=== PATIENT | male | born 1940 | race Hispanic/Latino ===

== ENCOUNTER 2017-01-21 06:14 | Day surgery (SDC) | payer MEDICARE, BC ==
[2017-01-18 12:03] VITALS: BMI 24.3
--- NOTE | 2017-01-21 04:13 | HP ---
REASON FOR ADMISSION: Left heart cath, abnormal stress test, history of coronary artery disease. BRIEF CLINICAL HISTORY: This is a 76-year-old male with a past medical history significant for coronary artery disease, status post multiple stents in LAD, circumflex, and RCA; history of Parkinson disease; history of hypertension; and hyperlipidemia, who was recently discharged from the hospital, who had plain balloon angioplasty when the patient admitted with wide complex tachycardia, status post cardioverter defibrillator and then plain balloon angioplasty of LAD done on 09/23/2015. Recent stress test was abnormal dated 12/24/2016, so the patient is scheduled for elective cardiac catheterization, possible angioplasty. PAST MEDICAL HISTORY: Significant for history of GI bleed; history of recently diagnosed sleep apnea; history of coronary artery disease, status post multiple stents; history of stent in LAD, history of stent in the RCA, history of stent in LAD, and most recently, the patient presented with wide-complex tachycardia, VT. Cardiac catheterization and plain balloon angioplasty of distal LAD was done. At that time, cardiac evaluation revealed decreased LV function, ejection fraction 45% to 50%, EDP was in the range of 15, successful POBA of distal LAD was done. Medical treatment recommended. Recent cardiac workup as follows: The patient had a catheterization in 2008, at that time, it showed patent stent in circumflex, patent stent in RCA, mild disease in LAD, 20% stenosis in the left main. Ejection fraction 45% to 50%. EDP within the range of 16, dated 06/10/2009. Most recent MUGA scan shows ejection fraction of 61% on 02/17/2013. The patient had a stress test done dated 12/24/2016 that shows abnormal stress myocardial perfusion study, reversible apical inferior, inferolateral defect, suspicious for ischemia. Ejection fraction 39%. When compared to the previous stress test, there is a significant reversible ischemia noted in the current study which is new as compared to 03/18/2016. The patient had a bilateral carotid duplex done dated 10/12/2016 that shows 45% to 59% bilateral carotid artery stenosis noted. The patient had echocardiography done on 10/12/2016 that showed the ejection fraction of 45%. Mild aortic regurgitation, [id number] mitral regurgitation, mild tricuspid regurgitation, trace pulmonary insufficiency. SOCIAL HISTORY: Denies any history of alcohol abuse. CURRENT MEDICATIONS: The patient is taking vitamin B complex, CoQ10, Neupro, omega-3, metoprolol 25 b.i.d., folic acid, clopidogrel, carbidopa/levodopa, aspirin, and amiodarone 200 mg daily. REVIEW OF SYSTEMS: As per HPI. PHYSICAL EXAMINATION: VITAL SIGNS: As follows: Height of the patient is 5 feet 10 inches,weight of the patient 170 pounds, body mass index 24.4 kg/m2, heart rate 60, blood pressure 130/80. HEENT: PERRLA, extraocular muscles intact. NECK: Supple. No carotid bruit. No thyromegaly. CHEST: Clear to auscultation. HEART: S1 and S2, regular. ABDOMEN: Soft. EXTREMITIES: Clubbing and cyanosis negative. IMPRESSION: A 76-year-old male with multiple stents to left anterior descending, right coronary artery, and circumplex. Most recently, the patient had wide-complex tachycardia and plain balloon angioplasty was done on 09/23/2015. Recent stress test dated 12/24/2016, apical inferior ischemia. The patient is scheduled for elective cardiac catheterization, possible angioplasty. We will load with Plavix and aspirin, do the basic blood workup. If everything is normal, then we will do a cardiac catheterization. Further recommendation after the cardiac catheterization. We will follow with you. Thank you Dr. Severino for providing us opportunity in taking care of the patient, John Padilla. Marva Alanis MD
[2017-01-21] MEDS ORDERED: Lidocaine 2% Inj (20ml) ONE (06:30)
[2017-01-21] MEDS ORDERED: Iohexol 350mgl/ml 50 ML ONE (06:31)
[2017-01-21] MEDS ORDERED: Iodixanol 320 MG/ML 100 ML BOTTLE IV ONE (06:31)
[2017-01-21] MEDS ORDERED: Iodixanol 320 MG/ML 200 ML BOTTLE IV ONE (06:31)
[2017-01-21] MEDS ORDERED: Nitroglycerin 50mg in D5W 0 MG/0 ML BOTTLE IV ONE (06:31)
[2017-01-21] MEDS ORDERED: Phenylephrine 10 mg/ml Inj ONE (06:31)
[2017-01-21] MEDS ORDERED: Midazolam 2 MG/2 ML VIAL ONE (06:50)
[2017-01-21 07:07] LABS: BLOOD UREA NITROGEN 17 mg/dL (7-21); CALCIUM 9.5 mg/dL (8.4-10.5); GFR AFRICAN-AMERICAN > 60; GFR NON-AFRICAN AMERICAN 59; HDL CHOLESTEROL 43 mg/dL (29-60)
[2017-01-21 07:08] LABS: INR 1.03 (0.93-1.08); PARTIAL THROMBOPLASTIN TIME 25.8 Seconds (23.7-30.8); PROTHROMBIN TIME 11.1 Seconds (9.9-11.8)
[2017-01-21 07:09] LABS: BASO # 0.02 K/mm3 (0.0-2.0); BASO % 0.4 % (0.0-3.0); EOS # 0.2 (0.0-0.7); EOS % 3.9 % (1.5-5.0); GRAN # 3.82 (1.4-6.5); LYMPH # 1.1 (1.2-3.4); MEAN CELL VOLUME 98.6 fL (80.0-105.0); MEAN CORPUSCULAR HEMOGLOBIN 33.4 pg (25.0-35.0); MEAN CORPUSCULAR HGB CONC 33.9 g/dl (31.0-37.0); MEAN PLATELET VOLUME 9.9 fl (7.0-11.0); MONO # 0.4 (0.1-0.6); MONO % 7.7 % (1.0-6.0); PLATELET COUNT 190 10^3/uL (120.0-450.0); RBC 4.19 10^6/uL (3.5-6.1); RED CELL DISTRIBUTION WIDTH 13.6 % (11.5-14.5); WHITE BLOOD COUNT 5.6 10^3/ul (4.5-11.0)
[2017-01-21 07:18] LABS: LDL CHOLESTEROL 60 mg/dL (0-129)
[2017-01-21 07:34] VITALS: RESP 18
[2017-01-21] MEDS ORDERED: Sodium Chloride 0.9% 1,000 ML IV SCH (08:45)
[2017-01-21 08:52] VITALS: TEMP 97.5
[2017-01-21 12:01] VITALS: BP 155/86; PULSE 65; O2SAT 97
--- NOTE | 2017-01-21 12:50 | CARD ---
APPROVED REPORT Procedure(s) performed: Left Heart Catheterization HISTORY The patient is a 76 year-old male with a history of : previous AZ (> 7 days), most recent EF: 39%. (EF Method: RADIONUCLIDE), previous diagnostic cath, tobacco history() : The patient is a former smoker , previous PCI (The PCI date was 09/23/2015), hypertension , dyslipidemia , cerebrovascular disease . INDICATION The indication(s) include : positive stress test. CASE TECHNIQUE The patient was brought electively to the Cardiac Catheterization Laboratory in a fasting state and was prepped and draped in a sterile manner. The right femoral groin was infiltrated with 2% Lidocaine subcutaneous anesthesia. A 6 Fr x 11 cm Rosa sheath was inserted into the right femoral artery without difficulty. Coronary angiography was performed using coronary diagnostic catheters. The left coronary system was accessed and visualized with a Diagnostic ,6 Fr JL 4 catheter. The right coronary system was accessed and visualized with a Diagnostic ,6 Fr JR 4 catheter. The left ventricle was accessed and visualized with a 6 Fr Pigtail catheter. Left ventricular/Aortic Valve gradient assessed on pullback. Left ventriculogram was performed in TANNER projection. Closure device was deployed with a 6 Fr / 7 Fr MynxGrip without any complications. The patient tolerated the procedure well and there were no complications associated with the procedure. Vessel Analysis The patient's coronary anatomy is right dominant. The left main coronary artery is a medium size vessel with diffuse calcification noted throughout this vessel and without significant stenosis. There is a 30-40% stenosis in the mid segment. The left main bifurcates to the left anterior descending and circumflex. The left anterior descending artery is a medium size vessel with diffuse calcification noted throughout this vessel and without significant stenosis. patent stent in proximal LAD There is a 60% stenosis in the distal segment. The first diagonal branch is a small size vessel with diffuse calcification noted throughout this vessel and without significant stenosis. The circumflex artery is a medium size vessel with diffuse calcification noted throughout this vessel and without significant stenosis. Patent stent in Proximal Cx There is a 30-40% stenosis in the ostial segment. The first obtuse marginal branch is a medium size vessel with diffuse calcification noted throughout this vessel and without significant stenosis. The right coronary artery is a medium size vessel with diffuse calcification noted throughout this vessel and without significant stenosis. Patent stents in proximal and Mid RCA There is a 60% stenosis in the mid segment. in Between Stents The right posterior descending artery is a medium size vessel with diffuse calcification noted throughout this vessel and without significant stenosis. There is a 40-50% stenosis in the proximal segment. Left Ventricle The left ventricle is mildly enlarged in size with mild to moderately decreased contractility. Ischemic cardiomyopathy. The left ventricular ejection fraction is estimated to be 35-40%. The left ventricular end diastolic pressure is 15-16 mmHg. There was no gradient across the aortic valve upon pullback. Postero Lateral HK Conclusion Moderately diseased in LAD, Cx , left main, and RCA. Patent all Previous stents. Mild to moderately decraedsed LV FX. EF-35-40%, with posterior basal Hypokinesis. EDP-15-16 mmof Hg. Recommendations Aggressive Medical TherapyCardiac Risk Reduction Program Monitor LV Fx in 3-6 months, and If remains below 35% consider AICD. Interim Consider Dig, CHRIS, Coreg, Diuretic and Spironolactone +/- Enteresto. CC; Drs. Severino / Abdon.
== END 2017-01-21 14:10 | disposition home or self-care (01) ==
LOC: CATH 06:14
PROVIDERS: ATTEND Internal Medicine Cardiovascular Disease
DX: I25.10 Atherosclerotic heart disease of native coronary artery without angina pectoris (principal); I25.5 Ischemic cardiomyopathy; I10 Essential (primary) hypertension; E78.5 Hyperlipidemia, unspecified; G20 Parkinson's disease; I65.23 Occlusion and stenosis of bilateral carotid arteries; I08.3 Combined rheumatic disorders of mitral, aortic and tricuspid valves; Z87.891 Personal history of nicotine dependence; Z95.5 Presence of coronary angioplasty implant and graft
CPT/HCPCS: 36415; 80048; 80061; 85025; 85610; 85730; 86850; 86900; 93458; 99152; 99153; C1760; C1769; C2629; J1644; J2250; J3010; J7030; J7040

== ENCOUNTER 2017-05-04 17:40 | Inpatient (IN) | payer MEDICARE, BC ==
[2017-05-04 17:40] VITALS: BMI 25.2
[2017-05-04 18:30] LABS: BASO # 0.03 K/mm3 (0.0-2.0); BASO % 0.4 % (0.0-3.0); EOS # 0.1 (0.0-0.7); EOS % 1.3 % (1.5-5.0); GRAN # 4.89 (1.4-6.5); GRAN % 72.6 % (50.0-68.0); HEMATOCRIT 32.4 % (42.0-52.0); LYMPH # 1.1 (1.2-3.4); LYMPH % 15.6 % (22.0-35.0); MEAN CELL VOLUME 101.3 fl (80.0-105.0); MEAN CORPUSCULAR HEMOGLOBIN 34.1 pg (25.0-35.0); MEAN CORPUSCULAR HGB CONC 33.6 g/dl (31.0-37.0); MEAN PLATELET VOLUME 9.7 fl (7.0-11.0); MONO # 0.7 (0.1-0.6); MONO % 10.1 % (1.0-6.0); RED CELL DISTRIBUTION WIDTH 12.9 % (11.5-14.5); WHITE BLOOD COUNT 6.7 10^3/ul (4.5-11.0)
[2017-05-04 18:39] LABS: INR 1.1 (0.93-1.08); PARTIAL THROMBOPLASTIN TIME 28.3 Seconds (25.1-36.5)
[2017-05-04 18:40] LABS: ALB/GLOB RATIO 1.2 (1.1-1.8); ALKALINE PHOSPHATASE 58 U/L (38-126); ALT/SGPT 45 U/L (7-56); AST/SGOT 27 U/L (17-59); BILIRUBIN,TOTAL 0.8 mg/dL (0.2-1.3); BLOOD UREA NITROGEN 18 mg/dL (7-21); CALCIUM 9.1 mg/dL (8.4-10.5); CARBON DIOXIDE 29 mmol/L (21-33); CHLORIDE 104 mmol/L (98-107); GFR AFRICAN-AMERICAN > 60; GLUCOSE,RANDOM 94 mg/dL (70-110); SODIUM 140 mmol/L (132-148)
[2017-05-04 18:51] LABS: TROPONIN I < 0.01 ng/mL
--- NOTE | 2017-05-04 19:02 | ED PDOC ---
Arrival/HPI - General Time Seen by Provider: 05/04/17 17:43 Historian: Patient - History of Present Illness Narrative History of Present Illness (Text): 05/04/17 18:58 76yr old male with parkinsons, CAD, htn presents today with BIBA for Depression and SI. pt states he had a fall 6 days ago and was seen at [facility] and had head ct which was negative. pt states he was told he had nasal bone fracture. pt states he went to see PMD and plastic surgeon for nasal injury. pt states his children say that he is unable to take care of himself at home. Patient states he hasn't eaten for 3 days because it is very difficult for him to get food. Patient states ever since his fall he has been finding it difficult to get up and walk. Patient states he has a fear of falling. Patient denies chest pain or shortness of breath. He is complaining of pain to the left lateral ribs. Patient states he has had the pain since the fall and was told he had bruised his ribs. Patient denies abdominal pain. No nausea or vomiting. Patient states he is very hungry currently. He denies urinary symptoms. He denies weakness. Patient states he is depressed. Patient states he is at home today and the EMS just came into his house and told him he had to go to the hospital. Patient states he did send his daughter had text message and told her that he was depressed and that he might just be better off if he wasn't alive. Past Medical History - Provider Review Nursing Documentation Reviewed: Yes - Travel History Have you recently traveled outside [place] w/in the past 3 mons?: No - Infectious Disease Hx of Infectious Diseases: None - Tetanus Immunization Tetanus Immunization: Unknown - Cardiac Hx Pacemaker: No - Pulmonary Hx Pneumonia: Yes - Neurological Hx Paralysis: No Hx Parkinson's Disease: Yes - HEENT Other/Comment: WEARS RX GLASSES - Renal Hx Kidney Stones: Yes (LITHOTRYPSY/PASSED IT) - Endocrine/Metabolic Hx Endocrine Disorders: No - Hematological/Oncological Hx Blood Transfusions: Yes (MANY YRS AGO) Hx Blood Transfusion Reaction: No - Integumentary Hx Dermatological Disorder: No - Musculoskeletal/Rheumatological Hx Musculoskeletal Disorders: No - Gastrointestinal Hx Gastrointestinal Disorders: Yes (GI bleed) - Genitourinary/Gynecological Hx Prostate Problems: Yes (BPH) - Psychiatric Hx Emotional Abuse: No Hx Physical Abuse: No Hx Substance Use: No - Surgical History Hx Cardiac Catheterization: Yes Hx Coronary Stent: Yes (x5) Other/Comment: excision benign forehead lesiion - Anesthesia Hx Anesthesia Reactions: No Hx Malignant Hyperthermia: No - Suicidal Assessment Feels Threatened In Home Enviroment: No Family/Social History - Physician Review Nursing Documentation Reviewed: Yes Family/Social History: Unknown Family HX Smoking Status: Former Smoker Hx Alcohol Use: Yes (ON OCCASION) Hx Substance Use: No Allergies/Home Meds Allergies/Adverse Reactions: Allergies No Known Allergies Allergy (Verified 05/05/17 00:53) Home Medications: Home Meds Medication Instructions Recorded Confirmed Clopidogrel [Plavix] 75 mg PO DAILY 09/16/12 05/05/17 Aspirin [Ecotrin] 325 mg PO DAILY 09/18/15 05/05/17 Carbidopa/Levodopa/Entacapone 1 tab-cap PO BID 09/18/15 05/05/17 [Stalevo 100] Metoprolol Tartrate [Lopressor] 25 mg PO BID 09/18/15 05/05/17 Pantoprazole Sodium [Protonix] 40 mg PO DAILY 09/18/15 05/05/17 Vitamin B Complex 1 tab PO DAILY 09/18/15 05/05/17 Alpha Lipoic Acid 600 mg PO DAILY 05/04/17 05/05/17 Ezetimibe/Simvastatin [Vytorin 10 mg PO DAILY 05/04/17 05/05/17 10-40 mg Tablet] Ubiquinol 300 mg PO DAILY 05/04/17 05/05/17 Vitamin B Complex [Super B-50 1 each PO DAILY 05/04/17 05/05/17 Complex] Review of Systems - Review of Systems Constitutional: absent: Fatigue, Fevers Respiratory: absent: SOB, Cough Cardiovascular: absent: Chest Pain, Palpitations, Syncope Gastrointestinal: absent: Abdominal Pain, Nausea, Vomiting Musculoskeletal: Arthralgias (left rib pain) Skin: absent: Cellulitis Neurological: absent: Headache, Dizziness Psychiatric: absent: Anxiety, Depression Physical Exam Vital Signs Reviewed: Yes Vital Signs Temp Pulse Resp BP Pulse Ox 05/04/17 21:31 78 18 149/67 100 05/04/17 17:50 98.9 F 108 H 20 150/72 99 Temperature: Afebrile Blood Pressure: Normal Pulse: Tachycardic Respiratory Rate: Normal Appearance: Positive for: Well-Appearing, Non-Toxic, Comfortable Pain Distress: None Mental Status: Positive for: Alert and Oriented X 3 - Systems Exam Head: Present: Ecchymosis (+ left sided joel orbital ecchymosis; non tender; no step offs or crepitus. ) Pupils: Present: PERRL Extroacular Muscles: Present: EOMI. No: Entrapment Conjunctiva: Present: Normal Mouth: Present: Moist Mucous Membranes Pharnyx: Present: Normal. No: ERYTHEMA, EXUDATE Nose (External): Present: Abrasion Nose (Internal): Present: No Active Bleeding. No: Septal Hematoma Neck: Present: Normal Range of Motion. No: MIDLINE TENDERNESS, Paraspinal Tenderness Respiratory/Chest: Present: Clear to Auscultation. No: Respiratory Distress, Accessory Muscle Use Cardiovascular: Present: Regular Rate and Rhythm Abdomen: No: Tenderness, Distention, Rebound, Guarding Back: Present: Normal Inspection. No: Midline Tenderness, Paraspinal Tenderness Neurological: Present: GCS=15 Skin: Present: Warm, Dry, Normal Color Psychiatric: Present: Alert, Oriented x 3, Depressed Mood Medical Decision Making ED Course and Treatment: 05/04/17 19:08 76yr old male presents with depression. s/p fall [address] head: FINDINGS: Brain: Hypodense lacunar infarcts are again visualized within the bilateral basal ganglia, largest on the right side. There are periventricular foci of hypodensity, likely representing small vessel ischemic disease in a patient this age. The acuity of the white matter disease is indeterminate. The white-pritchett differentiation is otherwise preserved demonstrating no acute territorial type infarct. There is mild prominence of the sulci, compatible with atrophy. No acute intracranial hemorrhage is seen. Midline shift: There is no midline shift. Ventricles: There is stable ventriculomegaly. Normal pressure hydrocephalus cannot be excluded. Bones/joints: Refer to the facial CT from the same day for discussion of findings involving the paranasal sinuses and facial bones. The calvarium demonstrates no evidence for a depressed fracture. Soft tissues: No acute abnormality. Vasculature: There is atherosclerotic calcification of the cavernous internal carotid arteries and distal vertebral arteries. Sinuses: See above. Mastoid air cells: No mastoid effusion. IMPRESSION: 1. No acute intracranial hemorrhage or acute territorial type infarct. 2. Hypodense lacunar infarcts are again visualized within the bilateral basal ganglia, largest on the right side. 3. There are periventricular foci of hypodensity, likely representing small vessel ischemic disease in a patient this age. 4. Mild atrophy. 5. There is stable ventriculomegaly. Normal pressure hydrocephalus cannot be excluded. 6. Additional findings described above. ct facial bones: FINDINGS: Bones/joints: The bilateral nasal bones are fractured. Stable calcifications or fracture fragments are visualized anterior to the nasal spine. The remaining visualized facial bones are intact. Soft tissues: No acute facial soft tissue swelling. Orbits: No acute abnormality. Sinuses: There is mucosal thickening of the bilateral frontal sinuses and bilateral ethmoid air cells. Mucosal thickening with mucous retention cysts or polyps are visualized within the bilateral maxillary sinuses, left side greater than right. There is mild mucosal thickening of the sphenoid sinuses. Other: There is mild hypodensity adjacent to the root of a tooth within the right side the mandible, consistent with periodontal disease. IMPRESSION: 1. The bilateral nasal bones are fractured. 2. Stable calcifications or fracture fragments are visualized anterior to the nasal spine. 3. Paranasal sinus disease is noted above. 4. Additional CT findings described above. left ribs: ? fracture left 7th rib chest xray; no infiltrate CBC WNL CMP WNL PT INR: 1.10 PTT wnl Tylenol WNL Salicylate WNL Alcohol level WNL Urine drug screen wnl UA; + blood cxr: wnl ekg: Normal sinus rhythm at 69 bpm left axis deviation and no ST elevations pt is medically cleared for PES evaluation Patient was seen and evaluated by PES screener: TANG pt accepted to behavioral health floor by dr. flowers. consent for voluntary admission signed. Impression; depression, rib fracture, nasal bone fracture, head injury, hematuria admit behavioral health floor - Lab Interpretations Lab Results: 05/04/17 18:15 05/04/17 18:15 Lab Results 05/04/17 21:00: Urine Opiates Screen Negative, Urine Methadone Screen Negative, Ur Barbiturates Screen Negative, Ur Phencyclidine Scrn Negative, Ur Amphetamines Screen Negative, U Benzodiazepines Scrn Negative, U Oth Cocaine Metabols Negative, U Cannabinoids Screen Negative 05/04/17 21:00: Urine Color Yellow, Urine Appearance Sl cloudy, Urine pH 5.5, Ur Specific [place] 1.025, Urine Protein Trace H, Urine Glucose (UA) Negative, Urine Ketones Trace H, Urine Blood Small H, Urine Nitrate Negative, Urine Bilirubin Negative, Urine Urobilinogen 0.2, Ur Leukocyte Esterase Negative, Urine RBC 2 - 5, Urine WBC 0 - 2, Ur Epithelial Cells 0 - 2, Urine Bacteria Occ 05/04/17 18:15: PT 12.0, INR 1.10 H, APTT 28.3 05/04/17 18:15: Alcohol, Quantitative < 10 05/04/17 18:15: Salicylates < 1 L, Acetaminophen < 10.0 L 05/04/17 18:15: Sodium 140, Potassium 4.0, Chloride 104, Carbon Dioxide 29, Anion Gap 11, BUN 18, Creatinine 1.0, Est GFR ( Amer) > 60, Est GFR (Non- Af Amer) > 60, Random Glucose 94, Calcium 9.1, Total Bilirubin 0.8, AST 27, ALT 45, Alkaline Phosphatase 58, Lactate Dehydrogenase 392, Total Creatine Kinase 44 , Troponin I < 0.01, Total Protein 7.0, Albumin 3.7, Globulin 3.2, Albumin/ Globulin Ratio 1.2 05/04/17 18:15: WBC 6.7, RBC 3.20 L, Hgb 10.9 L, Hct 32.4 L, MCV 101.3, MCH 34.1 , MCHC 33.6, RDW 12.9, Plt Count 213, MPV 9.7, Gran % 72.6 H, Lymph % (Auto) 15.6 L, [place] % (Auto) 10.1 H, Eos % (Auto) 1.3 L, Baso % (Auto) 0.4, Gran # 4.89 , Lymph # 1.1 L, Shelby # 0.7 H, Eos # 0.1, Baso # 0.03 - RAD Interpretation Radiology Orders: 05/04/17 18:05 CHEST PORTABLE [RAD] Stat 05/04/17 18:26 HEAD W/O CONTRAST [CT] Stat 05/04/17 18:29 MAXILLOFACIAL W/O CONTRAST [CT] Stat 05/04/17 19:04 RIBS LEFT [RAD] Stat - Medication Orders Current Medication Orders: Acetaminophen (Tylenol 325mg Tab) 650 mg PO Q4H PRN PRN Reason: Pain, Mild (1-3) Al Hydrox/Mg Hydrox/Simethicone (Maalox Plus 30 Ml) 30 ml PO DAILY PRN PRN Reason: Upset Stomach Amiodarone HCl (Cordarone) 200 mg PO DAILY [facility] Aspirin (Ecotrin) 325 mg PO DAILY [facility]OGEL[facility] Atorvastatin Calcium (Lipitor) 20 mg PO DIN ROGELIO Carbidopa/Levodopa/Entacapone (Stalevo 100) 1 tab PO BID ROGELIO Clopidogrel Bisulfate (Plavix) 75 mg PO DAILY [facility]OGEL[facility] Diphenhydramine HCl (Benadryl) 25 mg PO HS PRN PRN Reason: Insomnia Last Admin: 05/05/17 00:39 Dose: 25 mg Ezetimibe (Zetia) 10 mg PO DIN ROGELIO Magnesium Hydroxide (Milk Of Magnesia) 30 ml PO DAILY PRN PRN Reason: Constipation Metoprolol Tartrate (Lopressor) 25 mg PO BID [facility]OGELIO Pantoprazole Sodium (Protonix Ec Tab) 40 mg PO ACB ROGELIO Vitamin B Complex/Vit C/Folic Acid (Nephro-Vikki) 1 tab PO DAILY [facility] Disposition/Present on Arrival - Present on Arrival Any Indicators Present on Arrival: No History of DVT/PE: No History of Uncontrolled Diabetes: No Urinary Catheter: No History of Decub. Ulcer: No History Surgical Site Infection Following: None - Disposition Have Diagnosis and Disposition been Completed?: Yes Diagnosis: Depression, Nasal bone fracture, Head injury, Rib fracture Disposition: HOSPITALIZED Disposition Time: 22:56 Patient Plan: Admission Patient Problems: Current Active Problems Problem Status Onset Depression Acute Head injury Acute Nasal bone fracture Acute Rib fracture Acute Condition: FAIR
--- NOTE | 2017-05-04 19:51 | CT ---
EXAM: CT Head Without Intravenous Contrast EXAM DATE/TIME: 05/04/2017 6:26 PM CLINICAL HISTORY: The patient age is 76 years old and is male; Injury or trauma; Fall; Initial encounter; Blunt trauma (contusions or hematomas); Consciousness not specified; Additional info: Recent head injury Facility exam id and description: Ct heads head w/o contrast TECHNIQUE: Axial computed tomography images of the head/brain without intravenous contrast. All CT scans at this facility use one or more dose reduction techniques, viz.: automated exposure control; ma/kV adjustment per patient size (including targeted exams where dose is matched to indication; i.e. head); or iterative reconstruction technique. COMPARISON:Additional findings described above. CT - HEAD W/O CONTRAST 2016-05-03 11:36 FINDINGS: Brain: Hypodense lacunar infarcts are again visualized within the bilateral basal ganglia, largest on the right side. There are periventricular foci of hypodensity, likely representing small vessel ischemic disease in a patient this age. The acuity of the white matter disease is indeterminate. The white-pritchett differentiation is otherwise preserved demonstrating no acute territorial type infarct. There is mild prominence of the sulci, compatible with atrophy. No acute intracranial hemorrhage is seen. Midline shift: There is no midline shift. Ventricles: There is stable ventriculomegaly. Normal pressure hydrocephalus cannot be excluded. Bones/joints: Refer to the facial CT from the same day for discussion of findings involving the paranasal sinuses and facial bones. The calvarium demonstrates no evidence for a depressed fracture. Soft tissues: No acute abnormality. Vasculature: There is atherosclerotic calcification of the cavernous internal carotid arteries and distal vertebral arteries. Sinuses: See above. Mastoid air cells: No mastoid effusion. IMPRESSION: 1. No acute intracranial hemorrhage or acute territorial type infarct. 2. Hypodense lacunar infarcts are again visualized within the bilateral basal ganglia, largest on the right side. 3. There are periventricular foci of hypodensity, likely representing small vessel ischemic disease in a patient this age. 4. Mild atrophy. 5. There is stable ventriculomegaly. Normal pressure hydrocephalus cannot be excluded. 6. Additional findings described above.
--- NOTE | 2017-05-04 19:57 | CT ---
EXAM: CT Maxillofacial Without Intravenous Contrast EXAM DATE/TIME: 05/04/2017 6:29 PM CLINICAL HISTORY: The patient age is 76 years old and is male; Injury or trauma; Fall; Initial encounter; Blunt trauma (contusions or hematomas); Cheek bone and orbit/periorbital and maxilla; Bilateral; Additional info: Facial injury Facility exam id and description: Ct faces maxillofacial w/o contrast TECHNIQUE: Axial computed tomography images of the face without intravenous contrast. All CT scans at this facility use one or more dose reduction techniques, viz.: automated exposure control; ma/kV adjustment per patient size (including targeted exams where dose is matched to indication; i.e. head); or iterative reconstruction technique. Coronal and sagittal reformatted images were created and reviewed. COMPARISON: CT - MAXILLOFACIAL W/O CONTRAST 2015-11-28 19:29 FINDINGS: Bones/joints: The bilateral nasal bones are fractured. Stable calcifications or fracture fragments are visualized anterior to the nasal spine. The remaining visualized facial bones are intact. Soft tissues: No acute facial soft tissue swelling. Orbits: No acute abnormality. Sinuses: There is mucosal thickening of the bilateral frontal sinuses and bilateral ethmoid air cells. Mucosal thickening with mucous retention cysts or polyps are visualized within the bilateral maxillary sinuses, left side greater than right. There is mild mucosal thickening of the sphenoid sinuses. Other: There is mild hypodensity adjacent to the root of a tooth within the right side the mandible, consistent with periodontal disease. IMPRESSION: 1. The bilateral nasal bones are fractured. 2. Stable calcifications or fracture fragments are visualized anterior to the nasal spine. 3. Paranasal sinus disease is noted above. 4. Additional CT findings described above.
[2017-05-04 21:18] LABS: PH,URINE 5.5 (4.7-8.0); URINE BILIRUBIN NEGATIVE (NEGATIVE); URINE BLOOD SMALL (NEGATIVE); URINE GLUCOSE (UA) NEGATIVE (NEGATIVE); URINE KETONE TRACE mg/dL (NEGATIVE); URINE LEUKOCYTE ESTERASE NEGATIVE Leu/uL (NEGATIVE); URINE PROTEIN TRACE mg/dL (<30 mg/dL); URINE UROBILINOGEN 0.2 E.U./dL (<1 E.U./dL)
[2017-05-04 21:30] LABS: URINE APPEARANCE SL CLOUDY (CLEAR); URINE COLOR YELLOW (YELLOW)
[2017-05-04 21:31] VITALS: O2SAT 100
[2017-05-04 21:33] LABS: URINE BACTERIA OCC (NEG); URINE EPITHELIAL CELLS 0 - 2 /hpf (0-5); URINE WBC 0 - 2 /hpf (0-6)
[2017-05-04] MEDS ORDERED: Magnesium Hydroxide Susp 30 ml UD PO PRN (23:34)
[2017-05-04] MEDS ORDERED: Alum-Mag Hydrox-Simethicone Susp (30 mL) PO PRN (23:34)
--- NOTE | 2017-05-05 03:51 | PCM.BM ---
<Tang Mckinney - Last Filed: 05/05/17 03:48> Treatment Plan Problems - Problems identified on initial assessmt DEPRESSION Date Initiated: 05/05/17 Time Initiated: 00:00 Assessment reference: NA Status: Active Treatment assets and liabiliti Patient Assests: adapts well, cooperative, educated, motivated, self-reliant, good support system, negotiates basic needs, financial stabiity, cognitively intact, good interpersonal skills Patient Liabilities: live alone, relationship conflicts, medical problems - Milieu Protocol Maintain good personal hygiene: every other day Encourage regular showers, every shift Remind patient to perform daily oral care, every shift Assist patient to perform ADL's Maintain personal safety: every shift Educate patient to report safety concerns to staff, every shift Monitor environment for contraband/sharps Medication safety: Monitor for expected outcome, potential side effects: every shift, Assess barriers to learning: every shift, Assess readiness for medication education: every shift Family Contact Family involvement: Famliy/SO not involved Family contact: Patient agrees to contact Discharge/Continuing Care - Education Needs Education Needs: Patient Medication, Patient Diagnosis/Disease Process, Patient Coping Skills, Patient Placement options, Patient Community resources, Patient Activities of Daily Living, Patient Nutrition, Patient Health Practices/Safety, Patient Personal Hygiene/Grooming, Patient Aftercare Safety Plan - Discharge Discharge Criteria: Free of Suicidal thoughts, Free of paranoid thoughts, Normal sleep pattern, Ability to care for self <Dana Patel - Last Filed: 05/05/17 13:48> - Diagnosis (1) MDD (major depressive disorder) Status: Acute Interventions: 05/05/17 08:57 Psychoeducation Psychopharmacology/adjustment of medications as needed/ monitoring possible side effects Evaluate pt on daily basis Compliance with medications and follow up appointments Suicide and homicide risk assessment and prevention Relapse prevention Reduction of symptoms Improve functional status Family involvement cognitive behavioral therapy as outpatient pt might benefit from DTP day treatment program 05/05/17 13:48 (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
--- NOTE | 2017-05-05 07:30 | RAD ---
HISTORY: PES COMPARISON: Portable chest 12/13/2015. FINDINGS: LUNGS: No active pulmonary disease. Improved inspiratory effort noted. PLEURA: No significant pleural effusion identified, no pneumothorax apparent. CARDIOVASCULAR: Normal. OSSEOUS STRUCTURES: No significant abnormalities. VISUALIZED UPPER ABDOMEN: Normal. OTHER FINDINGS: None. IMPRESSION: No interval acute cardiopulmonary disease appreciated.
--- NOTE | 2017-05-05 07:32 | RAD ---
PROCEDURE: Radiographs of the Chest and Left Ribs. HISTORY: rib injury, left lateral COMPARISON: None available. TECHNIQUE: Frontal radiograph of the chest and multiple oblique radiographs of the left ribs were obtained. FINDINGS: LEFT RIBS: No fracture or focal lesion visualized. OTHER FINDINGS: None. IMPRESSION: Unremarkable radiographs of the left ribs. No left rib fracture.
[2017-05-05 08:02] LABS: CHOLESTEROL 115 mg/dL (130-200); GLUCOSE,FASTING 105 mg/dL (65-110)
[2017-05-05] MEDS: Multivitamin Vitamin B Complex (Nephro-Vite) Tab PO SCH (09:26)
[2017-05-05] MEDS: Aspirin 325 mg EC Tablets PO SCH (09:26)
[2017-05-05] MEDS: Pantoprazole 40 mg EC Tab PO SCH (09:29)
[2017-05-05] MEDS: LEVODOPA PO SCH ×2 (10:01→17:14)
[2017-05-05] MEDS: CARBIDOPA PO SCH ×2 (10:01→17:14)
[2017-05-05] MEDS: ENTACAPONE PO SCH ×2 (10:01→17:14)
--- NOTE | 2017-05-05 13:48 | PCM.PSYCH ---
Initial Psychiatric Evaluation - Initial Psychiatric Evaluation Type of Admission: Voluntary Legal Status: Capacity (pt has capacity to sign consent for treatment) Chief Complaint (in patient's own words): "I am depressed" Patient's Reaction to Hospitalization: pt was admitted for evaluation of depressive symptoms, feeling of hopeless and helpless, passive wish to be . pt was willing to get better, was admitted under voluntary status. History of Present Illness and Precipitating Events: Shortly pt is 76 yo male with multiple medical problems including HTN, Parkinson 's, multiple falls, CAD, no previous psych admissions, not known suicidal attempts, pt was brought to the hospital after pt's daughter called EMS, pt made statement "it would be better of if he wasn't alive". Pt lives alone, recent brake up with significant other, pt has no support, pt was not eating for the past three days, pt could not be maintained as outpatient setting, needs further evaluation and stabilization in acute psychiatric unit. pt was seen and examined at the treatment team meeting, fair personal hygiene but not shaved, has bruise under his left eye, has scratch on the nose, fair ADLs, pt was in the wheelchair, pt ambulates with the walker at home. pt got XR of the ribs, Maxillofacial CT, Head CT , CXR were done at the ED, pt was medically stable for transfer to psychiatric inpatient unit. pt was on 1:1 over night, for high risk of fall, pt was seen pt was not confused, said he could ask for help when needs to ambulate. Pt said he was stressed out because of the recent brake up with his significant other, pt said that she blocked him from the social media, the reason for the break up was alcohol addiction, pt said he found her hiding liquor and drinking it, then she became verbally abusive. pt said for the past three weeks he was feeling depressed, hopeless, helpless, pt also reported to have poor appetite and sleep, pt said that he did not want to kill himself because "it is against of my believe", but in the ED pt said that he would be not mind. Pt denied anxiety, pt denied v/a/t hallucinations. pt denied using drugs, drinks socially about two times a month. denied smoking, h/o smoking but quit 40years ago. Access to the weapons: denied Past psychiatric h/o: denied Hospitalization: denied Suicidal attempts: denied Medical h/o: pt has h/o Parkinson's tx by , CAD, h/o HTN, dyslipidemia , frequent falls. 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 Treatment goals: "I want to get better" Labs: 05/04/17 18:15 05/04/17 18:15 Lab Results 05/05/17 07:30: TSH 3rd Generation 0.90 05/05/17 07:30: Fasting Glucose 105, Triglycerides 61, Cholesterol 115 L, LDL Cholesterol Direct 66, HDL Cholesterol 33 05/04/17 21:00: Urine Opiates Screen Negative, Urine Methadone Screen Negative, Ur Barbiturates Screen Negative, Ur Phencyclidine Scrn Negative, Ur Amphetamines Screen Negative, U Benzodiazepines Scrn Negative, U Oth Cocaine Metabols Negative, U Cannabinoids Screen Negative 05/04/17 21:00: Urine Color Yellow, Urine Appearance Sl cloudy, Urine pH 5.5, Ur Specific [place] 1.025, Urine Protein Trace H, Urine Glucose (UA) Negative, Urine Ketones Trace H, Urine Blood Small H, Urine Nitrate Negative, Urine Bilirubin Negative, Urine Urobilinogen 0.2, Ur Leukocyte Esterase Negative, Urine RBC 2 - 5, Urine WBC 0 - 2, Ur Epithelial Cells 0 - 2, Urine Bacteria Occ 05/04/17 18:15: PT 12.0, INR 1.10 H, APTT 28.3 05/04/17 18:15: Alcohol, Quantitative < 10 05/04/17 18:15: Salicylates < 1 L, Acetaminophen < 10.0 L 05/04/17 18:15: Sodium 140, Potassium 4.0, Chloride 104, Carbon Dioxide 29, Anion Gap 11, BUN 18, Creatinine 1.0, Est GFR ( Amer) > 60, Est GFR (Non- Af Amer) > 60, Random Glucose 94, Calcium 9.1, Total Bilirubin 0.8, AST 27, ALT 45, Alkaline Phosphatase 58, Lactate Dehydrogenase 392, Total Creatine Kinase 44 , Troponin I < 0.01, Total Protein 7.0, Albumin 3.7, Globulin 3.2, Albumin/ Globulin Ratio 1.2 05/04/17 18:15: WBC 6.7, RBC 3.20 L, Hgb 10.9 L, Hct 32.4 L, MCV 101.3, MCH 34.1 , MCHC 33.6, RDW 12.9, Plt Count 213, MPV 9.7, Gran % 72.6 H, Lymph % (Auto) 15.6 L, Todd % (Auto) 10.1 H, Eos % (Auto) 1.3 L, Baso % (Auto) 0.4, Gran # 4.89 , Lymph # 1.1 L, Todd # 0.7 H, Eos # 0.1, Baso # 0.03 Vital Signs Temp Pulse Pulse Resp BP Pulse Ox 05/05/17 09:48 74 132/62 05/05/17 09:27 74 132/62 05/05/17 01:21 60 20 05/05/17 01:16 97.8 F 69 20 149/70 05/04/17 21:31 78 18 149/67 100 05/04/17 17:50 98.9 F 108 H 20 150/72 99 Review of Systems: see Medical consult. MSE: Pt deemed to be reliable historian, well related to this blog writer, flat and tearful affect. slow, low volume and monotonous speech, there is some psychomotor retardation, good eye contact, mood described: "I am depressed", goal directed thought process, thought content: denied SI/ HI, pt denied v/a/t hallucinations, denied paranoid ideation, insight/judgment: are fair , impulses are well controlled. Impression: r/o MDD r/o adjustment disorder with depressed mood r/o mood disorder due to a [facility] Treatment plan: Milieu/structure/supportive therapy Medical consult appreciated, see medical team note for more detailed info consultation for discharge plan and social issues Med management lexapro 5mg po daily for depression all meds were resumed PT evaluation Neurology eval Family involvement Follow up on labs Will monitor closely evaluation for d/c planning Pt was educated about risk/benefits and alternatives of medications, coping strategies (safety plan, suicide prevention), relapse prevention, importance of follow up with psychiatrist and therapist, stay away from drugs/alcohol/smoking Current Medications: Active Medications Generic Name Dose Route Start Last Admin Trade Name Freq PRN Reason Stop Dose Admin Acetaminophen 650 mg 05/04/17 23:34 Tylenol 325mg Tab PO Q4H PRN Pain, Mild (1-3) Al Hydrox/Mg Hydrox/Simethicone 30 ml 05/04/17 23:34 Maalox Plus 30 Ml PO DAILY PRN Upset Stomach Amiodarone HCl 200 mg 05/05/17 08:00 Cordarone PO DAILY [facility] Aspirin 325 mg 05/05/17 08:00 Ecotrin PO DAILY [facility] Atorvastatin Calcium 20 mg 05/05/17 17:00 Lipitor PO DIN [facility] Carbidopa/Levodopa/Entacapone 1 tab 05/05/17 08:00 Stalevo 100 PO BID [facility] Clopidogrel Bisulfate 75 mg 05/05/17 08:00 Plavix PO DAILY [facility] Diphenhydramine HCl 25 mg 05/04/17 23:44 05/05/17 00:39 Benadryl PO 25 mg HS PRN Administration Insomnia Ezetimibe 10 mg 05/05/17 17:00 Zetia PO DIN [facility] Magnesium Hydroxide 30 ml 05/04/17 23:34 Milk Of Magnesia PO DAILY PRN Constipation Metoprolol Tartrate 25 mg 05/05/17 08:00 Lopressor PO BID [facility] Pantoprazole Sodium 40 mg 05/05/17 07:30 Protonix Ec Tab PO ACB [facility] Vitamin B Complex/Vit C/Folic Acid 1 tab 05/05/17 08:00 Nephro-Vikki PO DAILY [facility] Past Psychiatric History - Past Psychiatric History Pertinent Medical Hx (Current Medical&Sleep Prob, Allergies): Allergies Allergy/AdvReac Type Severity Reaction Status Date / Time No Known Allergies Allergy Verified 05/05/17 00:53 Clopidogrel [Plavix] 75 mg PO DAILY 09/16/12 Aspirin [Ecotrin] 325 mg PO DAILY 09/18/15 Carbidopa/Levodopa/Entacapone [Stalevo 100] 1 tab-cap PO BID 09/18/15 Metoprolol Tartrate [Lopressor] 25 mg PO BID 09/18/15 Pantoprazole Sodium [Protonix] 40 mg PO DAILY 09/18/15 Vitamin B Complex 1 tab PO DAILY 09/18/15 Amiodarone [Cordarone] 200 mg PO DAILY #30 tab 09/25/15 Alpha Lipoic Acid 600 mg PO DAILY 05/04/17 Ezetimibe/Simvastatin [Vytorin 10-40 mg Tablet] 10 mg PO DAILY 05/04/17 Ubiquinol 300 mg PO DAILY 05/04/17 Vitamin B Complex [Super B-50 Complex] 1 each PO DAILY 05/04/17 DSM 5 DX - Recommended/Plan of Treatment Projected ELOS: 7days Prognosis: fair Discharge Plan and Discharge Criteria: Pt will be not depressed or manic, will be more hopeful, will be not psychotic or anxious, will be not having thoughts of harming self or others, will be tolerating medications well, will not have major side effects, will be able to function, will not pose threat to self or others. - Smoking Cessation Smoking Cessation Initiated: No Reason for not providing: denied smoking
--- NOTE | 2017-05-05 15:21 | CP.PCM.CON ---
<Uziel Le - Last Filed: 05/05/17 16:29> History of Present Illness - History of Present Illness History of Present Illness: Neurology consult note for Dr. Juarez's service - Braden Le PGY2 HPI: Patient is a 76yo male with past medical history of HTN, Parkinson's, multiple falls, CAD who was brought to [facility] after patient's daughter called EMS. Patient has been depressed, not eating for 3 days with little family support. He was evaluated in the ED and subsequently admitted to inpatient psychiatry for further evaluation/treatment. On arrival a CT Head was notable for no acute intracranial hemorrhage or acute infarct and stable ventriculomegaly (NPH could not be ruled out), mild atrophy (please refer to full report). Neurology was subsequently consulted for rule out of NPH. Patient admitted to frequent urinary incontinence over the last 2 weeks, approximately 2 -3 times per day. Additionally, he reported feeling unsteady on his feet. Otherwise, denied chest pain, palpitations, SOB, abdominal pain, nausea, vomiting, changes in vision, focal weakness, numbness, tingling. 12point ROS as per HPI above otherwise negative PMH: as stated above Allergies: NKDA Family Hx: non-contributory Social Hx: lives alone; denies illicit drug use Neurologist: Dr. Hernandez Past Patient History - Infectious Disease Hx of Infectious Diseases: None - Tetanus Immunizations Tetanus Immunization: Unknown - Past Social History Smoking Status: Former Smoker - CARDIAC Hx Pacemaker: No - PULMONARY Hx Pneumonia: Yes - NEUROLOGICAL Hx Paralysis: No Hx Parkinson's Disease: Yes - HEENT Other/Comment: WEARS RX GLASSES - RENAL Hx Kidney Stones: Yes (LITHOTRYPSY/PASSED IT) - ENDOCRINE/METABOLIC Hx Endocrine Disorders: No - HEMATOLOGICAL/ONCOLOGICAL Hx Blood Transfusions: Yes (MANY YRS AGO) Hx Blood Transfusion Reaction: No - INTEGUMENTARY Hx Dermatological Problems: No - MUSCULOSKELETAL/RHEUMATOLOGICAL Hx Musculoskeletal Disorders: No - GASTROINTESTINAL Hx Gastrointestinal Disorders: Yes (GI bleed) - GENITOURINARY/GYNECOLOGICAL Hx Prostate Problems: Yes (BPH) - PSYCHIATRIC Hx Emotional Abuse: No Hx Physical Abuse: No Hx Substance Use: No - SURGICAL HISTORY Hx Cardiac Catheterization: Yes Hx Coronary Stent: Yes (x5) Other/Comment: excision benign forehead lesiion - ANESTHESIA Hx Anesthesia Reactions: No Hx Malignant Hyperthermia: No Meds Allergies/Adverse Reactions: Allergies Allergy/AdvReac Type Severity Reaction Status Date / Time No Known Allergies Allergy Verified 05/05/17 00:53 - Medications Medications: Current Medications Acetaminophen (Tylenol 325mg Tab) 650 mg PO Q4H PRN PRN Reason: Pain, Mild (1-3) Al Hydrox/Mg Hydrox/Simethicone (Maalox Plus 30 Ml) 30 ml PO DAILY PRN PRN Reason: Upset Stomach Amiodarone HCl (Cordarone) 200 mg PO DAILY [facility] Last Admin: 05/05/17 09:48 Dose: 200 mg Aspirin (Ecotrin) 325 mg PO DAILY [facility] Last Admin: 05/05/17 09:26 Dose: 325 mg Atorvastatin Calcium (Lipitor) 20 mg PO DIN [facility] Carbidopa/Levodopa/Entacapone (Stalevo 100) 1 tab PO BID [facility] Last Admin: 05/05/17 10:01 Dose: 1 tab Clopidogrel Bisulfate (Plavix) 75 mg PO DAILY [facility] Last Admin: 05/05/17 09:26 Dose: 75 mg Diphenhydramine HCl (Benadryl) 25 mg PO HS PRN PRN Reason: Insomnia Last Admin: 05/05/17 00:39 Dose: 25 mg Ezetimibe (Zetia) 10 mg PO DIN [facility] Escitalopram Oxalate (Lexapro) 5 mg PO DAILY [facility] Last Admin: 05/05/17 14:25 Dose: 5 mg Magnesium Hydroxide (Milk Of Magnesia) 30 ml PO DAILY PRN PRN Reason: Constipation Metoprolol Tartrate (Lopressor) 25 mg PO BID [facility] Last Admin: 05/05/17 09:27 Dose: 25 mg Pantoprazole Sodium (Protonix Ec Tab) 40 mg PO ACB [facility] Last Admin: 05/05/17 09:29 Dose: 40 mg Vitamin B Complex/Vit C/Folic Acid (Nephro-Vikki) 1 tab PO DAILY [facility] Last Admin: 05/05/17 09:26 Dose: 1 tab Physical Exam - Constitutional Appears: No Acute Distress - Head Exam Head Exam: NORMOCEPHALIC. absent: ATRAUMATIC Additional comments: nasal fracture - Eye Exam Eye Exam: EOMI, PERRL Additional comments: left periorbital bruising - ENT Exam ENT Exam: Mucous Membranes Moist - Neck Exam Neck exam: Positive for: Normal Inspection. Negative for: Lymphadenopathy, Tenderness, Thyromegaly - Respiratory Exam Respiratory Exam: Clear to Auscultation Bilateral. absent: Rales, Rhonchi, Wheezes - Cardiovascular Exam Cardiovascular Exam: RRR, +S1, +S2. absent: Gallop, JVD, Rubs - GI/Abdominal Exam GI & Abdominal Exam: Normal Bowel Sounds, Soft. absent: Distended, Firm, Guarding, Rebound, Tenderness - Extremities Exam Extremities exam: Positive for: normal inspection. Negative for: pedal edema, tenderness - Neurological Exam Neurological exam: Alert, CN II-XII Intact, Oriented x3 Additional comments: awake, alert, oriented x3 EOMI PERRL CN2-12 grossly intact moves all extremities spontaneously sensory intact throughout proprioception intact babinski downward going bilaterally gait deferred - Skin Skin Exam: Dry, Intact, Normal Color, Warm Results - Vital Signs Recent Vital Signs: Last Vital Signs Temp 97.8 F 05/05/17 01:16 Pulse 74 05/05/17 09:48 Resp 20 05/05/17 01:21 BP 132/62 05/05/17 09:48 Pulse Ox 100 05/04/17 21:31 - Labs Result Diagrams: 05/04/17 18:15 05/04/17 18:15 Labs: Laboratory Results - last 24 hr 05/05/17 05/05/17 07:30 07:30 Fasting Glucose 105 Triglycerides 61 Cholesterol 115 L LDL Cholesterol Direct 66 HDL Cholesterol 33 TSH 3rd Generation 0.90 Assessment & Plan - Assessment and Plan (Free Text) Plan: 76yo male with history of parkinson's disease, hypertension, multiple falls, CAD admitted to [facility] for psychiatric treatment for depression. Neurology consulted for evaluation of ventriculomegaly seen on head CT; rule out NPH -MRI Brain without contrast ordered for further evaluation of ventriculomegaly; will follow up results -CT Head reviewed; please refer to full report; no acute intracranial abnormalities; stable ventriculomegaly (NPH could not be ruled out) -Continue stalevo for parkinson's disease -Physical therapy/occupational therapy evaluation Patient seen and case discussed/reviewed with attending, Dr. Juarez - Date & Time Date: 05/05/17 Time: 15:22 <Kannan Juarez - Last Filed: 05/06/17 10:09> Meds - Medications Medications: Current Medications Acetaminophen (Tylenol 325mg Tab) 650 mg PO Q4H PRN PRN Reason: Pain, Mild (1-3) Al Hydrox/Mg Hydrox/Simethicone (Maalox Plus 30 Ml) 30 ml PO DAILY PRN PRN Reason: Upset Stomach Amiodarone HCl (Cordarone) 200 mg PO DAILY [facility] Last Admin: 05/06/17 09:04 Dose: 200 mg Aspirin (Ecotrin) 325 mg PO DAILY [facility] Last Admin: 05/06/17 09:03 Dose: 325 mg Atorvastatin Calcium (Lipitor) 20 mg PO DIN [facility] Last Admin: 05/05/17 17:14 Dose: 20 mg Carbidopa/Levodopa/Entacapone (Stalevo 100) 1 tab PO BID [facility] Last Admin: 05/06/17 09:02 Dose: 1 tab Clopidogrel Bisulfate (Plavix) 75 mg PO DAILY [facility] Last Admin: 05/06/17 09:04 Dose: 75 mg Diphenhydramine HCl (Benadryl) 25 mg PO HS PRN PRN Reason: Insomnia Last Admin: 05/05/17 00:39 Dose: 25 mg Ezetimibe (Zetia) 10 mg PO DIN [facility] Last Admin: 05/05/17 17:15 Dose: 10 mg Enoxaparin Sodium (Lovenox) 40 mg SC DAILY [facility] PRN Reason: Protocol Last Admin: 05/06/17 09:08 Dose: 40 mg Escitalopram Oxalate (Lexapro) 5 mg PO DAILY [facility] Last Admin: 05/06/17 09:05 Dose: 5 mg Magnesium Hydroxide (Milk Of Magnesia) 30 ml PO DAILY PRN PRN Reason: Constipation Metoprolol Tartrate (Lopressor) 25 mg PO BID [facility] Last Admin: 05/06/17 09:07 Dose: 25 mg Pantoprazole Sodium (Protonix Ec Tab) 40 mg PO ACB [facility] Last Admin: 05/06/17 09:06 Dose: 40 mg Vitamin B Complex/Vit C/Folic Acid (Nephro-Vikki) 1 tab PO DAILY [facility] Last Admin: 05/06/17 09:06 Dose: 1 tab Results - Vital Signs Recent Vital Signs: Last Vital Signs Temp 98.5 F 05/06/17 06:42 Pulse 54 L 05/06/17 09:07 Resp 17 05/06/17 06:42 BP 127/62 05/06/17 09:07 Pulse Ox 100 05/04/17 21:31 - Labs Result Diagrams: 05/04/17 18:15 05/04/17 18:15 Labs: Laboratory Results - last 24 hr 05/05/17 07:30 RPR Nonreactive Attending/Attestation - Attestation I have personally seen and examined this patient.: Yes I have fully participated in the care of the patient.: Yes I have reviewed all pertinent clinical information: Yes
--- NOTE | 2017-05-05 17:19 | CARD ---
APPROVED REPORT EKG Measurement Heart [id number] <Conclusion> Normal sinus rhythm Voltage criteria for left ventricular hypertrophy Abnormal ECG
--- NOTE | 2017-05-05 17:35 | CP.PCM.CON ---
Addendum entered and electronically signed by Roldan Cooney DO 05/05/17 18:43: Addenda to plan section 5) Sacral wound -reported by nursing as along buttocks area, hidden under adult diaper, no extension past diaper -wound care ordered Original Note: <Roldan Cooney - Last Filed: 05/05/17 17:25> History of Present Illness - History of Present Illness History of Present Illness: IM Consult Note for Hospitalist Service Consulted for Medical Management HPI: This is a 76 yo M with PMH of HTN, CAD, [place] s/p stenting (total 5 stents, last cathed 3-4 months prior), and GERD who was [place] [facility] [place] for depression and suspected suicidal ideation. Patient experienced a significant mechanical fall approximately 6 days prior, leading to bilateral nasal bone fracture, and has been homebound since. As per patient, he told his daughter in a text last night "maybe it would be better if I wasn't around anymore," which prompted her to call EMS, who instructed to the patient to come to the hospital. He reports no active suicidal ideation or planning at time of exam, just general depression and exasperation with his general medical condition. Denies room spinning, dizziness, or any syncopal/presyncopal episodes with falls , just reports loss of balance when attempting to back up with his walker away from his car door. Denies focal weakness or paresthesia, but admits that he had been having several falls (1-2 times per month, no change in frequency), and also admits to increased urinary frequency, but denies burning or hematuria. Denies chest pain, shortness of breath, nausea, emesis, vision changes, diarrhea, cough, fever, chills. All other ROS in 12-system review negative. Admits to occasional medication non-compliance (admits to forgetting some of his meds some days because he loses track of all of them). Memory appears intact and appropriate, displays logical thought processes. Of note, nursing in the Psych unit reports skin lesion that appears to be pressure sore along the lower sacral area, not visualized by team PMH: As above PSH: Cardiac cath, cardiac stenting, Lithotripsy for renal stone FHx: denies, HTN in remote cousins only SHx: denies tobacco, admits social alcohol (stops his pills for a day when going to have a drink), denies illicits/IVDA PMD: Dr Severino Review of Systems - Review of Systems All systems: reviewed and no additional remarkable complaints except (as per HPI ) Past Patient History - Infectious Disease Hx of Infectious Diseases: None - Tetanus Immunizations Tetanus Immunization: Unknown - Past Social History Smoking Status: Former Smoker - CARDIAC Hx Pacemaker: No - PULMONARY Hx Pneumonia: Yes - NEUROLOGICAL Hx Paralysis: No Hx Parkinson's Disease: Yes - HEENT Other/Comment: WEARS RX GLASSES - RENAL Hx Kidney Stones: Yes (LITHOTRYPSY/PASSED IT) - ENDOCRINE/METABOLIC Hx Endocrine Disorders: No - HEMATOLOGICAL/ONCOLOGICAL Hx Blood Transfusions: Yes (MANY YRS AGO) Hx Blood Transfusion Reaction: No - INTEGUMENTARY Hx Dermatological Problems: No - MUSCULOSKELETAL/RHEUMATOLOGICAL Hx Musculoskeletal Disorders: No - GASTROINTESTINAL Hx Gastrointestinal Disorders: Yes (GI bleed) - GENITOURINARY/GYNECOLOGICAL Hx Prostate Problems: Yes (BPH) - PSYCHIATRIC Hx Emotional Abuse: No Hx Physical Abuse: No Hx Substance Use: No - SURGICAL HISTORY Hx Cardiac Catheterization: Yes Hx Coronary Stent: Yes (x5) Other/Comment: excision benign forehead lesiion - ANESTHESIA Hx Anesthesia Reactions: No Hx Malignant Hyperthermia: No Meds Allergies/Adverse Reactions: Allergies Allergy/AdvReac Type Severity Reaction Status Date / Time No Known Allergies Allergy Verified 05/05/17 00:53 - Medications Medications: Current Medications Acetaminophen (Tylenol 325mg Tab) 650 mg PO Q4H PRN PRN Reason: Pain, Mild (1-3) Al Hydrox/Mg Hydrox/Simethicone (Maalox Plus 30 Ml) 30 ml PO DAILY PRN PRN Reason: Upset Stomach Amiodarone HCl (Cordarone) 200 mg PO DAILY [facility] Last Admin: 05/05/17 09:48 Dose: 200 mg Aspirin (Ecotrin) 325 mg PO DAILY [facility] Last Admin: 05/05/17 09:26 Dose: 325 mg Atorvastatin Calcium (Lipitor) 20 mg PO DIN [facility] Last Admin: 05/05/17 17:14 Dose: 20 mg Carbidopa/Levodopa/Entacapone (Stalevo 100) 1 tab PO BID [facility] Last Admin: 05/05/17 17:14 Dose: 1 tab Clopidogrel Bisulfate (Plavix) 75 mg PO DAILY [facility] Last Admin: 05/05/17 09:26 Dose: 75 mg Diphenhydramine HCl (Benadryl) 25 mg PO HS PRN PRN Reason: Insomnia Last Admin: 05/05/17 00:39 Dose: 25 mg Ezetimibe (Zetia) 10 mg PO DIN [facility] Last Admin: 05/05/17 17:15 Dose: 10 mg Escitalopram Oxalate (Lexapro) 5 mg PO DAILY [facility] Last Admin: 05/05/17 14:25 Dose: 5 mg Magnesium Hydroxide (Milk Of Magnesia) 30 ml PO DAILY PRN PRN Reason: Constipation Metoprolol Tartrate (Lopressor) 25 mg PO BID [facility] Last Admin: 05/05/17 17:15 Dose: 25 mg Pantoprazole Sodium (Protonix Ec Tab) 40 mg PO ACB [facility] Last Admin: 05/05/17 09:29 Dose: 40 mg Vitamin B Complex/Vit C/Folic Acid (Nephro-Vikki) 1 tab PO DAILY [facility] Last Admin: 05/05/17 09:26 Dose: 1 tab Physical Exam - Constitutional Appears: Non-toxic, No Acute Distress, Chronically Ill - Head Exam Head Exam: ATRAUMATIC, NORMAL INSPECTION, NORMOCEPHALIC - Eye Exam Eye Exam: EOMI, Normal appearance, PERRL. absent: Conjunctival injection, Scleral icterus Pupil Exam: NORMAL ACCOMODATION, PERRL. absent: Fixed, Irregular, Unequal - ENT Exam ENT Exam: Mucous Membranes Moist. absent: Mucous Membranes Dry - Neck Exam Neck exam: Positive for: Full Rom, Normal Inspection - Respiratory Exam Respiratory Exam: Clear to Auscultation Bilateral, NORMAL BREATHING PATTERN. absent: Accessory Muscle Use, Chest Wall Tenderness, Decreased Breath Sounds, Prolonged Expiratory Phase, Rales, Rhonchi, Wheezes - Cardiovascular Exam Cardiovascular Exam: REGULAR RHYTHM, RRR, +S1, +S2. absent: Bradycardia, Tachycardia, Irregular Rhythm, JVD, +S4 - GI/Abdominal Exam GI & Abdominal Exam: Normal Bowel Sounds, Soft. absent: Diminished Bowel Sounds , Distended, Firm, Guarding, Hyperactive Bowel Sounds, Hypoactive Bowel Sounds, Rigid, Tenderness - Extremities Exam Extremities exam: Positive for: normal capillary refill. Negative for: calf tenderness, joint swelling, pedal edema, tenderness - Back Exam Back exam: absent: CVA tenderness (L), CVA tenderness (R) - Neurological Exam Neurological exam: Alert, CN II-XII Intact, Oriented x3 Additional comments: mild tremor in bilateral arms with movement unsteady gait when moving from sitting in wheelchair to standing 5/5 motor strength in all extremities and bilateral closing specialist strength - Psychiatric Exam Psychiatric exam: Anxious, Normal Affect Additional comments: Displays appropriate mentation, logical thought processes no wandering or tangential thoughts/speech - Skin Skin Exam: Dry, Intact, Normal Color, Warm Results - Vital Signs Recent Vital Signs: Last Vital Signs Temp 97.8 F 05/05/17 01:16 Pulse 59 L 05/05/17 17:15 Resp 20 05/05/17 01:21 BP 145/68 05/05/17 17:15 Pulse Ox 100 05/04/17 21:31 - Labs Result Diagrams: 05/04/17 18:15 05/04/17 18:15 Labs: Laboratory Results - last 24 hr 05/05/17 05/05/17 07:30 07:30 Fasting Glucose 105 Triglycerides 61 Cholesterol 115 L LDL Cholesterol Direct 66 HDL Cholesterol 33 TSH 3rd Generation 0.90 Assessment & Plan - Assessment and Plan (Free Text) Assessment: This is a 76 yo M with PMH of HTN, CAD, [place] s/p stenting (total 5 stents, last cathed 3-4 months prior), and GERD who was [place] [facility] [place] for depression and suspected suicidal ideation. Medicine has been consulted for Medical Management. Plan: 1) Depression and reported suicidal ideation -currently on 1:1 in psych unit -further management as per Psych 2) Falls and incontinence -CT head on admission notable for ventriculomegaly, appears stable compared to CT head 1 yr prior -Falls likely due to Parkinson's, but in setting of co-presenting urinary incontinence and dilated ventricles, concerning for NPO -No overt signs of dementia on exam -UA on admission not indicative of UTI -Neuro consults (Dr. Juarez), appreciate all recs -High fall risk, continue wheelchair precaution, may benefit from PT when cleared by Psych 3) Parkinson's -continue Sinemet -High fall risk, continue wheelchair precaution -may benefit from Physical therapy when cleared by Psych 4) Hx CAD, [place], Cardiac stenting -continue Metoprolol and Amiodarone -continue Asa/Plavix for stents -continue Vytorin for cholesterol management -Lipid panel ordered, f/u Dispo: Psych unit for depression and possible suicidal ideation, pending Neuro eval and recs FEN: Heart-healthy diet Access: N/a Consults: Psych is primary, IM and Neuro consulted Ppx: Protonix for GI, Lovenox for DVT ppx Patient seen, reviewed, and examined with attending, Dr. Keita. <Marva Keita - Last Filed: 05/07/17 16:58> Meds - Medications Medications: Current Medications Acetaminophen (Tylenol 325mg Tab) 650 mg PO Q4H PRN PRN Reason: Pain, Mild (1-3) Al Hydrox/Mg Hydrox/Simethicone (Maalox Plus 30 Ml) 30 ml PO DAILY PRN PRN Reason: Upset Stomach Amiodarone HCl (Cordarone) 200 mg PO DAILY [facility] Last Admin: 05/07/17 09:04 Dose: 200 mg Aspirin (Ecotrin) 325 mg PO DAILY [facility] Last Admin: 05/07/17 09:07 Dose: 325 mg Atorvastatin Calcium (Lipitor) 20 mg PO DIN [facility] Last Admin: 05/06/17 16:56 Dose: 20 mg Carbidopa/Levodopa/Entacapone (Stalevo 100) 1 tab PO BID [facility] Last Admin: 05/07/17 09:08 Dose: 1 tab Clopidogrel Bisulfate (Plavix) 75 mg PO DAILY [facility] Last Admin: 05/07/17 09:08 Dose: 75 mg Diphenhydramine HCl (Benadryl) 25 mg PO HS PRN PRN Reason: Insomnia Last Admin: 05/05/17 00:39 Dose: 25 mg Ezetimibe (Zetia) 10 mg PO DIN [facility] Last Admin: 05/06/17 16:56 Dose: 10 mg Enoxaparin Sodium (Lovenox) 40 mg SC DAILY [facility] PRN Reason: Protocol Last Admin: 05/07/17 09:09 Dose: 40 mg Escitalopram Oxalate (Lexapro) 5 mg PO DAILY [facility] Last Admin: 05/07/17 09:08 Dose: 5 mg Magnesium Hydroxide (Milk Of Magnesia) 30 ml PO DAILY PRN PRN Reason: Constipation Metoprolol Tartrate (Lopressor) 25 mg PO BID [facility] Last Admin: 05/07/17 09:07 Dose: 25 mg Pantoprazole Sodium (Protonix Ec Tab) 40 mg PO ACB [facility] Last Admin: 05/07/17 09:08 Dose: 40 mg Vitamin B Complex/Vit C/Folic Acid (Nephro-Vikki) 1 tab PO DAILY [facility] Last Admin: 05/07/17 09:08 Dose: 1 tab Zaleplon (Sonata) 2.5 mg PO HS [facility] Results - Vital Signs Recent Vital Signs: Last Vital Signs Temp 97.4 F L 05/07/17 06:48 Pulse 58 L 05/07/17 16:00 Resp 16 05/07/17 06:48 BP 119/56 L 05/07/17 16:00 Pulse Ox 100 05/04/17 21:31 - Labs Result Diagrams: 05/04/17 18:15 05/04/17 18:15 Attending/Attestation - Attestation I have personally seen and examined this patient.: Yes I have fully participated in the care of the patient.: Yes I have reviewed all pertinent clinical information: Yes Notes (Text): 05/07/17 16:53 Patient was seen and examined with certified medical coder. Agreed with resident assessment and plan. 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 CT head showed dilatation of ventricle, no h/o frequent fall, there is no H/O incontinence of urine, will follow up MRI of Brain and Neurology recommendation. Management plan was discussed in detail with patient Education was provided.
[2017-05-06] MEDS: LEVODOPA PO SCH ×2 (09:02→16:56)
[2017-05-06] MEDS: CARBIDOPA PO SCH ×2 (09:02→16:56)
[2017-05-06] MEDS: ENTACAPONE PO SCH ×2 (09:02→16:56)
[2017-05-06] MEDS: Aspirin 325 mg EC Tablets PO SCH (09:03)
[2017-05-06] MEDS: Multivitamin Vitamin B Complex (Nephro-Vite) Tab PO SCH (09:06)
[2017-05-06] MEDS: Pantoprazole 40 mg EC Tab PO SCH (09:06)
[2017-05-06] MEDS: Enoxaparin 40 mg Syringe SC SCH (09:08)
--- NOTE | 2017-05-06 10:41 | PCM.PYCHPN ---
Psychiatric Progress Note - Psychiatric Progress Note Patient seen today, length of contact: 30min Patient Chief Complaint: "I am the same, depressed..." Medical Problems: Parkinson's disease, hypertension, multiple falls, CAD, ventriculomegaly seen on head CT r/o NPH Diagnostic Results: 05/04/17 18:15 05/04/17 18:15 Lab Results 05/05/17 07:30: TSH 3rd Generation 0.90 05/05/17 07:30: Fasting Glucose 105, Triglycerides 61, Cholesterol 115 L, LDL Cholesterol Direct 66, HDL Cholesterol 33 05/05/17 07:30: RPR Nonreactive 05/04/17 21:00: Urine Opiates Screen Negative, Urine Methadone Screen Negative, Ur Barbiturates Screen Negative, Ur Phencyclidine Scrn Negative, Ur Amphetamines Screen Negative, U Benzodiazepines Scrn Negative, U Oth Cocaine Metabols Negative, U Cannabinoids Screen Negative 05/04/17 21:00: Urine Color Yellow, Urine Appearance Sl cloudy, Urine pH 5.5, Ur Specific [place] 1.025, Urine Protein Trace H, Urine Glucose (UA) Negative, Urine Ketones Trace H, Urine Blood Small H, Urine Nitrate Negative, Urine Bilirubin Negative, Urine Urobilinogen 0.2, Ur Leukocyte Esterase Negative, Urine RBC 2 - 5, Urine WBC 0 - 2, Ur Epithelial Cells 0 - 2, Urine Bacteria Occ 05/04/17 18:15: PT 12.0, INR 1.10 H, APTT 28.3 05/04/17 18:15: Alcohol, Quantitative < 10 05/04/17 18:15: Salicylates < 1 L, Acetaminophen < 10.0 L 05/04/17 18:15: Sodium 140, Potassium 4.0, Chloride 104, Carbon Dioxide 29, Anion Gap 11, BUN 18, Creatinine 1.0, Est GFR ( Amer) > 60, Est GFR (Non- Af Amer) > 60, Random Glucose 94, Calcium 9.1, Total Bilirubin 0.8, AST 27, ALT 45, Alkaline Phosphatase 58, Lactate Dehydrogenase 392, Total Creatine Kinase 44 , Troponin I < 0.01, Total Protein 7.0, Albumin 3.7, Globulin 3.2, Albumin/ Globulin Ratio 1.2 05/04/17 18:15: WBC 6.7, RBC 3.20 L, Hgb 10.9 L, Hct 32.4 L, MCV 101.3, MCH 34.1 , MCHC 33.6, RDW 12.9, Plt Count 213, MPV 9.7, Gran % 72.6 H, Lymph % (Auto) 15.6 L, [place] % (Auto) 10.1 H, Eos % (Auto) 1.3 L, Baso % (Auto) 0.4, Gran # 4.89 , Lymph # 1.1 L, [place] # 0.7 H, Eos # 0.1, Baso # 0.03 Vital Signs Temp Pulse Pulse Resp BP Pulse Ox 05/06/17 09:07 54 L 127/62 05/06/17 09:04 54 L 127/62 05/06/17 06:42 98.5 F 54 L 17 127/62 05/05/17 17:15 59 L 145/68 05/05/17 16:00 59 L 145/68 05/05/17 09:48 74 132/62 05/05/17 09:27 74 132/62 05/05/17 01:21 60 20 05/05/17 01:16 97.8 F 69 20 149/70 05/04/17 21:31 78 18 149/67 100 05/04/17 17:50 98.9 F 108 H 20 150/[address] Head 05/04/17 IMPRESSION: 1. No acute intracranial hemorrhage or acute territorial type infarct. 2. Hypodense lacunar infarcts are again visualized within the bilateral basal ganglia, largest on the right side. 3. There are periventricular foci of hypodensity, likely representing small vessel ischemic disease in a patient this age. 4. Mild atrophy. 5. There is stable ventriculomegaly. Normal pressure hydrocephalus cannot be excluded. ct facial bones: 05/04/17 IMPRESSION: 1. The bilateral nasal bones are fractured. 2. Stable calcifications or fracture fragments are visualized anterior to the nasal spine. 3. Paranasal sinus disease is noted above. 4. Additional CT findings described above. left ribs: ? fracture left 7th rib chest xray; no infiltrate DSM 5 Symptoms Update: Shortly pt is 76 yo male with multiple medical problems including HTN, Parkinson 's, multiple falls, CAD, no previous psych admissions, not known suicidal attempts, pt was brought to the hospital after pt's daughter called EMS, pt made statement "it would be better of if he wasn't alive". Pt lives alone, recent brake up with significant other, pt has no support, pt was not eating for the past three days, pt could not be maintained as outpatient setting, needs further evaluation and stabilization in acute psychiatric unit. pt was seen and examined today at the office, pt said that he tolerates Lexapro well, denied any side effects. pt said he still feels the same depressed, hopeless, helpless, poor sleep, denied thoughts of harming self or others. Pt denied anxiety, pt denied v/a/t hallucinations. As per staff pt likes to be around people. Review of Systems: see Medical consult, discussed with and ( neuro), pt will be followed up as outpatient. 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 slow, low volume and monotonous speech, there is some psychomotor retardation, good eye contact, mood described: "I am depressed", goal directed thought process, thought content: denied SI/ HI, pt denied v/a/t hallucinations, denied paranoid ideation, insight/judgment: are fair , impulses are well controlled. Impression: r/o MDD r/o adjustment disorder with depressed mood r/o mood disorder due to a C r/o NPH multiple medical issues see medical consult Treatment plan: Milieu/structure/supportive therapy Medical consult appreciated, see medical team note for more detailed info consultation for discharge plan and social issues Med management lexapro 5mg po daily for depression all meds were resumed PT evaluation Neurology eval, was called for NPH, recommended MRI to r/o NPH ( normal pressure hydrocephalus), will f/u on result Family involvement Follow up on labs Will monitor closely evaluation for d/c planning Pt was educated about risk/benefits and alternatives of medications, coping strategies (safety plan, suicide prevention), relapse prevention, importance of follow up with psychiatrist and therapist, stay away from drugs/alcohol/smoking Medication Change: Yes (lexapro initiated) Medical Record Reviewed: Yes Consults ordered or reviewed: medical consult appreciated Neurology consult appreciated for Parkinson's disease, hypertension, multiple falls, ventriculomegaly seen on head CT, r/o NPH MRI Brain without contrast ordered for further evaluation of ventriculomegaly; will follow up results Mental Status Examination - Homicidal Ideation Homicidal Ideation: No Goal/Treatment Plan - Goal/Treatment Plan Need for Continued Stay: Remain at risks for inpatient hospitalization, Severe depression anxiety, Discharge may exacerbated symptoms, Severe functional impairment Estimated Date of D/C: 05/11/17 (will monitor closely)
--- NOTE | 2017-05-06 11:37 | CP.PCM.PN ---
<Roldan Cooney - Last Filed: 05/06/17 11:28> Subjective - Date & Time of Evaluation Date of Evaluation: 05/06/17 Time of Evaluation: 09:05 - Subjective Subjective: IM Progress Note for Hospitalist Service Patient seen and examined in the Psych Unit. Denies acute complaints at this time. No acute events overnight reported by nursing or by patient. Still feels a little depressed, but denies SI. Denies chest pain, shortness of breath , nausea, emesis, diarrhea, dysuria, diarrhea, or new paresthesias. Objective - Vital Signs/Intake and Output Vital Signs (last 24 hours): Temp Pulse Resp BP Pulse Ox 98.5 F 54 L 17 127/62 100 05/06/17 06:42 05/06/17 09:07 05/06/17 06:42 05/06/17 09:07 05/04/17 21:31 - Medications Medications: Current Medications Acetaminophen (Tylenol 325mg Tab) 650 mg PO Q4H PRN PRN Reason: Pain, Mild (1-3) Al Hydrox/Mg Hydrox/Simethicone (Maalox Plus 30 Ml) 30 ml PO DAILY PRN PRN Reason: Upset Stomach Amiodarone HCl (Cordarone) 200 mg PO DAILY [facility] Last Admin: 05/06/17 09:04 Dose: 200 mg Aspirin (Ecotrin) 325 mg PO DAILY [facility] Last Admin: 05/06/17 09:03 Dose: 325 mg Atorvastatin Calcium (Lipitor) 20 mg PO DIN [facility] Last Admin: 05/05/17 17:14 Dose: 20 mg Carbidopa/Levodopa/Entacapone (Stalevo 100) 1 tab PO BID [facility] Last Admin: 05/06/17 09:02 Dose: 1 tab Clopidogrel Bisulfate (Plavix) 75 mg PO DAILY [facility] Last Admin: 05/06/17 09:04 Dose: 75 mg Diphenhydramine HCl (Benadryl) 25 mg PO HS PRN PRN Reason: Insomnia Last Admin: 05/05/17 00:39 Dose: 25 mg Ezetimibe (Zetia) 10 mg PO DIN [facility] Last Admin: 05/05/17 17:15 Dose: 10 mg Enoxaparin Sodium (Lovenox) 40 mg SC DAILY [facility] PRN Reason: Protocol Last Admin: 05/06/17 09:08 Dose: 40 mg Escitalopram Oxalate (Lexapro) 5 mg PO DAILY [facility] Last Admin: 05/06/17 09:05 Dose: 5 mg Magnesium Hydroxide (Milk Of Magnesia) 30 ml PO DAILY PRN PRN Reason: Constipation Metoprolol Tartrate (Lopressor) 25 mg PO BID [facility] Last Admin: 05/06/17 09:07 Dose: 25 mg Pantoprazole Sodium (Protonix Ec Tab) 40 mg PO ACB [facility] Last Admin: 05/06/17 09:06 Dose: 40 mg Vitamin B Complex/Vit C/Folic Acid (Nephro-Vikki) 1 tab PO DAILY [facility] Last Admin: 05/06/17 09:06 Dose: 1 tab - Labs Labs: PT 12.0 SECONDS (9.4-12.5) 05/04/17 18:15 INR 1.10 (0.93-1.08) H 05/04/17 18:15 APTT 28.3 Seconds (25.1-36.5) 05/04/17 18:15 - Additional Findings Additional findings: - Constitutional Appears: Non-toxic, No Acute Distress, Chronically Ill - Head Exam Head Exam: NORMOCEPHALIC, Healing echymosis under R eye from prior fall, no gross fractures or deformities apparent - Eye Exam Eye Exam: EOMI, Normal appearance, PERRL. absent: Conjunctival injection, Scleral icterus Pupil Exam: NORMAL ACCOMODATION, PERRL. absent: Fixed, Irregular, Unequal - ENT Exam ENT Exam: Mucous Membranes Moist, Episode of mild epistaxis from R nostril on re -examination this AM (resolved with tissues and compression). absent: Mucous Membranes Dry - Neck Exam Neck exam: Positive for: Full Rom, Normal Inspection - Respiratory Exam Respiratory Exam: Clear to Auscultation Bilateral, NORMAL BREATHING PATTERN. absent: Accessory Muscle Use, Chest Wall Tenderness, Decreased Breath Sounds, Prolonged Expiratory Phase, Rales, Rhonchi, Wheezes - Cardiovascular Exam Cardiovascular Exam: REGULAR RHYTHM, RRR, +S1, +S2. absent: Bradycardia, Tachycardia, Irregular Rhythm, JVD, +S4 - GI/Abdominal Exam GI & Abdominal Exam: Normal Bowel Sounds, Soft. absent: Diminished Bowel Sounds , Distended, Firm, Guarding, Hyperactive Bowel Sounds, Hypoactive Bowel Sounds, Rigid, Tenderness - Extremities Exam Extremities exam: Positive for: normal capillary refill. 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 Medicine has been consulted for Medical Management. Plan: 1) Depression and reported suicidal ideation -1:1 discontinued by psych -further management as per Psych 2) Falls and incontinence -CT head on admission notable for ventriculomegaly, appears stable compared to CT head 1 yr prior -Falls likely due to Parkinson's, but in setting of co-presenting urinary incontinence and dilated ventricles, concerning for NPH -Pt now describing urinary incontinence as urge without ability to make it to bathroom in time, so less likely NPH -No overt signs of dementia on exam -UA on admission not indicative of UTI -Neuro consults (Dr. Juarez), appreciate all recs; pending MRI to further assess ventriculomegaly -High fall risk, continue wheelchair precaution, may benefit from PT when cleared by Psych 3) Parkinson's -continue Stalevo -High fall risk, continue wheelchair precaution -may benefit from Physical therapy when cleared by Psych 4) Hx CAD, CT, Cardiac stenting -continue Metoprolol and Amiodarone -continue Asa/Plavix for stents -continue Vytorin for cholesterol management -Lipid panel ordered, mildly low HDL at 33 but otherwise acceptable Dispo: Psych unit for depression and possible suicidal ideation, pending Neuro eval and recs FEN: Heart-healthy diet Access: N/a Consults: Psych is primary, IM and Neuro consulted Ppx: Protonix for GI, Lovenox for DVT ppx Patient seen, reviewed, and examined with attending, Dr. Keita. At time time, patient is medically stable, and we will sign off. Please reconsult as necessary. <Marva Keita - Last Filed: 05/07/17 16:59> Objective - Vital Signs/Intake and Output Vital Signs (last 24 hours): Temp Pulse Resp BP Pulse Ox 97.4 F L 58 L 16 119/56 L 100 05/07/17 06:48 05/07/17 16:00 05/07/17 06:48 05/07/17 16:00 05/04/17 21:31 - Medications Medications: Current Medications Acetaminophen (Tylenol 325mg Tab) 650 mg PO Q4H PRN PRN Reason: Pain, Mild (1-3) Al Hydrox/Mg Hydrox/Simethicone (Maalox Plus 30 Ml) 30 ml PO DAILY PRN PRN Reason: Upset Stomach Amiodarone HCl (Cordarone) 200 mg PO DAILY [facility] Last Admin: 05/07/17 09:04 Dose: 200 mg Aspirin (Ecotrin) 325 mg PO DAILY [facility] Last Admin: 05/07/17 09:07 Dose: 325 mg Atorvastatin Calcium (Lipitor) 20 mg PO DIN [facility] Last Admin: 05/06/17 16:56 Dose: 20 mg Carbidopa/Levodopa/Entacapone (Stalevo 100) 1 tab PO BID [facility] Last Admin: 05/07/17 09:08 Dose: 1 tab Clopidogrel Bisulfate (Plavix) 75 mg PO DAILY [facility] Last Admin: 05/07/17 09:08 Dose: 75 mg Diphenhydramine HCl (Benadryl) 25 mg PO HS PRN PRN Reason: Insomnia Last Admin: 05/05/17 00:39 Dose: 25 mg Ezetimibe (Zetia) 10 mg PO DIN [facility] Last Admin: 05/06/17 16:56 Dose: 10 mg Enoxaparin Sodium (Lovenox) 40 mg SC DAILY [facility] PRN Reason: Protocol Last Admin: 05/07/17 09:09 Dose: 40 mg Escitalopram Oxalate (Lexapro) 5 mg PO DAILY [facility] Last Admin: 05/07/17 09:08 Dose: 5 mg Magnesium Hydroxide (Milk Of Magnesia) 30 ml PO DAILY PRN PRN Reason: Constipation Metoprolol Tartrate (Lopressor) 25 mg PO BID [facility] Last Admin: 05/07/17 09:07 Dose: 25 mg Pantoprazole Sodium (Protonix Ec Tab) 40 mg PO ACB [facility] Last Admin: 05/07/17 09:08 Dose: 40 mg Vitamin B Complex/Vit C/Folic Acid (Nephro-Vikki) 1 tab PO DAILY [facility] Last Admin: 05/07/17 09:08 Dose: 1 tab Zaleplon (Sonata) 5 mg PO HS [facility] - Labs Labs: PT 12.0 SECONDS (9.4-12.5) 05/04/17 18:15 INR 1.10 (0.93-1.08) H 05/04/17 18:15 APTT 28.3 Seconds (25.1-36.5) 05/04/17 18:15 Attending/Attestation - Attestation I have personally seen and examined this patient.: Yes I have fully participated in the care of the patient.: Yes I have reviewed all pertinent clinical information, including history, physical exam and plan: Yes Notes (Text): 05/07/17 16:58 Patient was seen and examined with medical donation professional. Agreed with resident assessment and plan. Management plan was discussed in detail with patient Education was provided.
--- NOTE | 2017-05-06 14:57 | CON ---
DATE: 05/05/2017 LOCATION: The patient is in room 508, bed 1. REASON FOR CONSULTATION: Coronary artery disease, history of stent insertion, history of ventricular tachycardia, wide-complex tachycardia, status post fall, and depression. HISTORY OF PRESENT ILLNESS: The patient is a 76-year-old male who is known to have Parkinson's disease, coronary artery disease, had stent insertion multiple times in LAD, circumflex, and RCA, hypertension, hyperlipidemia. The patient stated that 6 days ago, he lost his balance and fell down and hit his left side of the chest and face. He went to [facility] and was told that he has nasal injury with a fracture and to follow as an outpatient. The patient also continued to have hip pain since he fell on the left side. The patient denies any anginal pain, shortness of breath, or palpitation. The patient stated that he has not eaten for 3 days and since fall he says it is difficult for him to take care of himself because he has difficulty in getting up and walking. He stated he did not eat any food since 3 days and he is very depressed. So he came to the hospital and was admitted to the psychiatric floor for depression. The patient denies any cardiac symptoms at the present moment. PAST MEDICAL HISTORY: Significant for gastrointestinal bleeding, coronary artery disease, status post multiple stents, the patient had cardiac catheterization in 05/2009, which showed patent stent in LAD, patent in circumflex, patent in RCA, mild disease about 20% stenosis in LAD, and left main 20% and RCA 20%, ejection fraction was 45% to 50%. EDP was in the range of 16 to 18. The patient also had an echo on 09/25/2015, which showed normal sized LV, concentric left ventricular hypertrophy, systolic function mildly impaired with EF of 45% to 50%, mild aortic regurgitation, moderate mitral regurgitation, [id number] tricuspid regurgitation, RVSP 37 mmHg. The patient had a stress test on 12/23/2016, which showed partially reversible apical inferior, inferoseptal defect, suspicious for ischemia as compared with the study of 03/18/2015, defects appear slightly larger and partially reversible in the present study. LV ejection fraction of 39%. Following above abnormal stress test, the patient had cardiac catheterization on 01/21/2017, which showed moderate disease in LAD, circumflex, left main, and RCA. All previous tests were patent. Mild to moderate decreased LV ejection fraction of 35% to 40%. EDP in 15 to 16 mmHg. Medical therapy was suggested to be continued. The patient did not had any other intervention at that time. DIAGNOSES: Coronary artery disease, multiple stent insertion, left ventricular dysfunction, Parkinson's disease, history of gastrointestinal bleeding in the past, history of hypertension, hyperlipidemia, depression, recent fall due to unsteady posture with left lateral chest wall tenderness and pain and injury to the nose, depression. PLAN: The patient had no anginal symptoms. Clinically cardiac status is stable. We will continue amiodarone 200 mg p.o. daily, aspirin 325 p.o. daily, Lexapro 5 mg p.o. daily, atorvastatin 20 mg daily, metoprolol 25 b.i.d., Lovenox 40 mg subcutaneously daily, Plavix 75 mg daily, Protonix 40 mg daily, and Zetia 10 mg daily. We will follow with you. Marva Coppola MD
--- NOTE | 2017-05-06 16:01 | PN ---
DATE: 05/06/2017 LOCATION: The patient's psychiatric floor, room 508, bed 1. REASON FOR CONSULTATION: Coronary artery disease, hypertension, hyperlipidemia, depression, and history of fall. SUBJECTIVE: The patient is conscious, alert, sitting in chair, without any chest pain, shortness of breath or palpitation. PHYSICAL EXAMINATION: VITAL SIGNS: Blood pressure is 127/62, respirations 17, pulse 54, and temperature 98.5. HEENT: Head is normocephalic. Eyes; pupils normal. Conjunctivae slightly pale. NECK: JVP low. Carotid equal. THORAX: AP diameter normal. LUNGS: Clear. CARDIOVASCULAR: S1 and S2. ABDOMEN: Soft. No tenderness. No organomegaly. EXTREMITIES: No clubbing. No cyanosis. CHEST: The patient still has tenderness on the left lateral chest, which he injured since the fall, which happened due to unsteady walking. There was no syncope. LABORATORY DATA: WBC 6.7, hemoglobin 10.9, hematocrit 32.4, and platelets 213. Sodium 140, potassium 4.0, BUN 18, and creatinine 1.0. Cholesterol 115, HDL 33, LDL 66, and triglycerides 161. Troponin x2 negative. DIAGNOSES: The patient had a fall few days back with unsteady gait and he went to [facility]. The patient now was unable to take care of himself at home. While since the fall, he has a hard time getting up and walking. He says he did not eat for few days and he is suffering from depression, coronary artery disease, hypertension, hyperlipidemia, Parkinson's disease, anemia, contusion of the chest wall due to fall, also had a history of nose injury since fall. The patient had a stress test on 12/23/2016, which showed ischemia with left ventricular ejection fraction of 39%. Following that, the patient had catheterization on 01/21/2017, which showed all the previous stents were opened and the patient had moderate disease in left main, left anterior descending, circumflex, and right coronary artery and left ventricular ejection fraction was 35-40%. PLAN: Clinically, the patient's cardiac state is stable. The patient is on amiodarone 200 mg daily because he had an episode of wide complex ventricular tachycardia, aspirin 325 mg p.o. daily, Lexapro 5 mg p.o. daily, Lipitor 20 mg p.o. daily, metoprolol 25 b.i.d., Lovenox 40 mg subcutaneous daily, Plavix 75 daily, carbidopa/levodopa, entacapone, which is Stalevo 100 one tablet p.o. b.i.d., and Zetia 10 mg daily. Clinically, cardiac state is stable. Continue present therapy. Marva Coppola MD
--- NOTE | 2017-05-06 16:36 | MRI ---
PROCEDURE: MRI BRAIN WITHOUT CONTRAST HISTORY: eval for NPH COMPARISON: MRI of the brain 10/26/2012 TECHNIQUE: Multiplanar, multisequence MR images of the brain were obtained without intravenous contrast enhancement. FINDINGS: HEMORRHAGE: None DWI: No evidence of an acute or early subacute infarction. BRAIN PARENCHYMA: No mass effect or edema. Mild chronic microvascular changes are seen. 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 There are no acute findings VENTRICLES: There is a moderate amount of ventricular dilatation that is unchanged since 2013. CRANIUM: Unremarkable. ORBITS: Grossly unremarkable. PARANASAL SINUSES/MASTOIDS: Clear VASCULAR SYSTEM: Skull base flow voids intact. OTHER FINDINGS: None. IMPRESSION: Moderate ventriculomegaly unchanged since 2012. No acute intracranial findings
--- NOTE | 2017-05-06 17:33 | CP.PCM.PN ---
<Uziel Le - Last Filed: 05/07/17 11:15> Subjective - Date & Time of Evaluation Date of Evaluation: 05/06/17 Time of Evaluation: 12:20 - Subjective Subjective: Neurology progress note for Dr. Juarez's service - Braden Le PGY2 Seen and examined in psychiatry unit. No acute overnight events or new complaints reported. Denies focal weakness, numbness, tingling. Objective - Vital Signs/Intake and Output Vital Signs (last 24 hours): Temp Pulse Resp BP Pulse Ox 98.5 F 58 L 17 135/64 100 05/06/17 06:42 05/06/17 16:54 05/06/17 06:42 05/06/17 16:54 05/04/17 21:31 - Medications Medications: Current Medications Acetaminophen (Tylenol 325mg Tab) 650 mg PO Q4H PRN PRN Reason: Pain, Mild (1-3) Al Hydrox/Mg Hydrox/Simethicone (Maalox Plus 30 Ml) 30 ml PO DAILY PRN PRN Reason: Upset Stomach Amiodarone HCl (Cordarone) 200 mg PO DAILY [facility] Last Admin: 05/06/17 09:04 Dose: 200 mg Aspirin (Ecotrin) 325 mg PO DAILY [facility] Last Admin: 05/06/17 09:03 Dose: 325 mg Atorvastatin Calcium (Lipitor) 20 mg PO DIN [facility] Last Admin: 05/06/17 16:56 Dose: 20 mg Carbidopa/Levodopa/Entacapone (Stalevo 100) 1 tab PO BID [facility] Last Admin: 05/06/17 16:56 Dose: 1 tab Clopidogrel Bisulfate (Plavix) 75 mg PO DAILY [facility] Last Admin: 05/06/17 09:04 Dose: 75 mg Diphenhydramine HCl (Benadryl) 25 mg PO HS PRN PRN Reason: Insomnia Last Admin: 05/05/17 00:39 Dose: 25 mg Ezetimibe (Zetia) 10 mg PO DIN [facility] Last Admin: 05/06/17 16:56 Dose: 10 mg Enoxaparin Sodium (Lovenox) 40 mg SC DAILY [facility] PRN Reason: Protocol Last Admin: 05/06/17 09:08 Dose: 40 mg Escitalopram Oxalate (Lexapro) 5 mg PO DAILY [facility] Last Admin: 05/06/17 09:05 Dose: 5 mg Magnesium Hydroxide (Milk Of Magnesia) 30 ml PO DAILY PRN PRN Reason: Constipation Metoprolol Tartrate (Lopressor) 25 mg PO BID [facility] Last Admin: 05/06/17 16:54 Dose: 25 mg Pantoprazole Sodium (Protonix Ec Tab) 40 mg PO ACB [facility] Last Admin: 05/06/17 09:06 Dose: 40 mg Vitamin B Complex/Vit C/Folic Acid (Nephro-Vikki) 1 tab PO DAILY [facility] Last Admin: 05/06/17 09:06 Dose: 1 tab - Labs Labs: PT 12.0 SECONDS (9.4-12.5) 05/04/17 18:15 INR 1.10 (0.93-1.08) H 05/04/17 18:15 APTT 28.3 Seconds (25.1-36.5) 05/04/17 18:15 - Constitutional Appears: No Acute Distress - Head Exam Head Exam: ATRAUMATIC, NORMAL INSPECTION, NORMOCEPHALIC - Eye Exam Eye Exam: EOMI, PERRL - ENT Exam ENT Exam: Mucous Membranes Moist - Neck Exam Neck Exam: Normal Inspection. absent: Lymphadenopathy, Tenderness, Thyromegaly - Respiratory Exam Respiratory Exam: Clear to Ausculation Bilateral. absent: Rales, Rhonchi, Wheezes - Cardiovascular Exam Cardiovascular Exam: RRR, +S1, +S2. absent: Gallop, Rubs, Murmur - GI/Abdominal Exam GI & Abdominal Exam: Soft. absent: Distended, Firm, Guarding, Rigid, Tenderness , Rebound - Neurological Exam Neurological Exam: Alert, Awake, CN II-XII Intact, Oriented x3 Additional comments: EOMI PERRL CN2-12 grossly intact moves all extremities spontaneously sensation intact throughout gait deferred - Psychiatric Exam Psychiatric exam: Normal Affect, Normal Mood - Skin Skin Exam: Dry, Intact, Normal Color, Warm Assessment and Plan - Assessment and Plan (Free Text) Plan: 76yo male with history of parkinson's disease, hypertension, multiple falls, CAD admitted to [facility] for psychiatric treatment for depression. Neurology consulted for evaluation of ventriculomegaly seen on head CT; rule out NPH -MRI Brain reviewed; moderate ventriculomegaly unchanged since 2012 -CT Head reviewed; please refer to full report; no acute intracranial abnormalities; stable ventriculomegaly (NPH could not be ruled out) -Continue stalevo for parkinson's disease -Physical therapy/occupational therapy evaluation/treatment -No further neurologic workup necessary at this time; Please reconsult neurology as needed; Thank you for this consult Patient seen and case discussed/reviewed with attending, Dr. Juarez <Kannan Juarez - Last Filed: 05/07/17 11:27> Objective - Vital Signs/Intake and Output Vital Signs (last 24 hours): Temp Pulse Resp BP Pulse Ox 97.4 F L 57 L 16 122/54 L 100 05/07/17 06:48 05/07/17 09:07 05/07/17 06:48 05/07/17 09:07 05/04/17 21:31 - Medications Medications: Current Medications Acetaminophen (Tylenol 325mg Tab) 650 mg PO Q4H PRN PRN Reason: Pain, Mild (1-3) Al Hydrox/Mg Hydrox/Simethicone (Maalox Plus 30 Ml) 30 ml PO DAILY PRN PRN Reason: Upset Stomach Amiodarone HCl (Cordarone) 200 mg PO DAILY [facility] Last Admin: 05/07/17 09:04 Dose: 200 mg Aspirin (Ecotrin) 325 mg PO DAILY [facility] Last Admin: 05/07/17 09:07 Dose: 325 mg Atorvastatin Calcium (Lipitor) 20 mg PO DIN [facility] Last Admin: 05/06/17 16:56 Dose: 20 mg Carbidopa/Levodopa/Entacapone (Stalevo 100) 1 tab PO BID [facility] Last Admin: 05/07/17 09:08 Dose: 1 tab Clopidogrel Bisulfate (Plavix) 75 mg PO DAILY [facility] Last Admin: 05/07/17 09:08 Dose: 75 mg Diphenhydramine HCl (Benadryl) 25 mg PO HS PRN PRN Reason: Insomnia Last Admin: 05/05/17 00:39 Dose: 25 mg Ezetimibe (Zetia) 10 mg PO DIN [facility] Last Admin: 05/06/17 16:56 Dose: 10 mg Enoxaparin Sodium (Lovenox) 40 mg SC DAILY [facility] PRN Reason: Protocol Last Admin: 05/07/17 09:09 Dose: 40 mg Escitalopram Oxalate (Lexapro) 5 mg PO DAILY [facility] Last Admin: 05/07/17 09:08 Dose: 5 mg Magnesium Hydroxide (Milk Of Magnesia) 30 ml PO DAILY PRN PRN Reason: Constipation Metoprolol Tartrate (Lopressor) 25 mg PO BID [facility] Last Admin: 05/07/17 09:07 Dose: 25 mg Pantoprazole Sodium (Protonix Ec Tab) 40 mg PO ACB [facility] Last Admin: 05/07/17 09:08 Dose: 40 mg Vitamin B Complex/Vit C/Folic Acid (Nephro-Vikki) 1 tab PO DAILY [facility] Last Admin: 05/07/17 09:08 Dose: 1 tab - Labs Labs: PT 12.0 SECONDS (9.4-12.5) 05/04/17 18:15 INR 1.10 (0.93-1.08) H 05/04/17 18:15 APTT 28.3 Seconds (25.1-36.5) 05/04/17 18:15 Attending/Attestation - Attestation I have personally seen and examined this patient.: Yes I have fully participated in the care of the patient.: Yes I have reviewed all pertinent clinical information, including history, physical exam and plan: Yes
[2017-05-07] MEDS: Aspirin 325 mg EC Tablets PO SCH (09:07)
[2017-05-07] MEDS: LEVODOPA PO SCH ×2 (09:08→16:58)
[2017-05-07] MEDS: ENTACAPONE PO SCH ×2 (09:08→16:58)
[2017-05-07] MEDS: Multivitamin Vitamin B Complex (Nephro-Vite) Tab PO SCH (09:08)
[2017-05-07] MEDS: Pantoprazole 40 mg EC Tab PO SCH (09:08)
[2017-05-07] MEDS: CARBIDOPA PO SCH ×2 (09:08→16:58)
[2017-05-07] MEDS: Enoxaparin 40 mg Syringe SC SCH (09:09)
--- NOTE | 2017-05-07 13:53 | PN ---
DATE: 05/07/2017 LOCATION: The patient is in room 508, bed 1. REASON FOR CONSULTATION: Coronary artery disease, history of stent insertion, hypertension, hyperlipidemia, depression, and history of falls. SUBJECTIVE: The patient is conscious, is alert, moving all extremities. Denies any chest pain, shortness of breath or palpitation. Presently sitting in chair comfortably. PHYSICAL EXAMINATION: VITAL SIGNS: Blood pressure 122/54, respirations 16, pulse 57, and temperature 97.4. HEENT: Head is normocephalic. Eyes; pupils normal. Conjunctivae slightly pale. NECK: JVP low. Carotid equal. THORAX: AP diameter normal. LUNGS: Clear. CARDIOVASCULAR: S1 and S2. ABDOMEN: Soft. No tenderness. No organomegaly. Bowel sounds normal. EXTREMITIES: No clubbing. No cyanosis. LABORATORY DATA: WBC 6.7, hemoglobin 10.9, hematocrit 32.4, and platelets 213. Sodium 140, potassium 4.0, BUN 18, and creatinine 1.0. AST and ALT are normal. Triglycerides 61, cholesterol 115, and LDL 66. TSH 0.90. DIAGNOSES: History of fall, depression, coronary artery disease, and history of stent insertion. The patient since fall is complaining left lateral chest pain that is where he has bruises from the fall. There is local tenderness. Hypertension, hyperlipidemia, Parkinson's disease, anemia, contusion of the chest wall, and history of nose injury since fall. The patient had a stress test on 12/23/2016, which showed ischemia with left ventricular ejection fraction of 39%. Following that, the patient had catheterization on 01/21/2017, which showed all the previous stents were opened and there was moderate disease in left main, left anterior descending artery, circumflex, and right coronary artery, which did not need any intervention and left ventricular ejection fraction was 35-40%. Detailed cardiac history has been mentioned in our consultation on 05/05/2017. PLAN: Clinically, the patient does not have any anginal symptoms. Please continue present therapy including aspirin 325 daily, Lipitor 20 daily, metoprolol 25 b.i.d., Lovenox 40 mg subcutaneous daily, Plavix 75 daily, Zetia 10 mg daily, Protonix 40 daily, and Parkinson's medicine as well. Lexapro 5 mg p.o. daily. We will follow with you. Marva Coppola MD [facility] # [id number]
--- NOTE | 2017-05-07 16:11 | PCM.PYCHPN ---
Psychiatric Progress Note - Psychiatric Progress Note Patient seen today, length of contact: 30min Patient Chief Complaint: "I do not sleep" Medical Problems: Parkinson's disease, hypertension, multiple falls, CAD, ventriculomegaly seen on head CT r/o NPH Diagnostic Results: 05/04/17 18:15 05/04/17 18:15 Lab Results 05/05/17 07:30: TSH 3rd Generation 0.90 05/05/17 07:30: Fasting Glucose 105, Triglycerides 61, Cholesterol 115 L, LDL Cholesterol Direct 66, HDL Cholesterol 33 05/05/17 07:30: RPR Nonreactive 05/04/17 21:00: Urine Opiates Screen Negative, Urine Methadone Screen Negative, Ur Barbiturates Screen Negative, Ur Phencyclidine Scrn Negative, Ur Amphetamines Screen Negative, U Benzodiazepines Scrn Negative, U Oth Cocaine Metabols Negative, U Cannabinoids Screen Negative 05/04/17 21:00: Urine Color Yellow, Urine Appearance Sl cloudy, Urine pH 5.5, Ur Specific [place] 1.025, Urine Protein Trace H, Urine Glucose (UA) Negative, Urine Ketones Trace H, Urine Blood Small H, Urine Nitrate Negative, Urine Bilirubin Negative, Urine Urobilinogen 0.2, Ur Leukocyte Esterase Negative, Urine RBC 2 - 5, Urine WBC 0 - 2, Ur Epithelial Cells 0 - 2, Urine Bacteria Occ 05/04/17 18:15: PT 12.0, INR 1.10 H, APTT 28.3 05/04/17 18:15: Alcohol, Quantitative < 10 05/04/17 18:15: Salicylates < 1 L, Acetaminophen < 10.0 L 05/04/17 18:15: Sodium 140, Potassium 4.0, Chloride 104, Carbon Dioxide 29, Anion Gap 11, BUN 18, Creatinine 1.0, Est GFR ( Amer) > 60, Est GFR (Non- Af Amer) > 60, Random Glucose 94, Calcium 9.1, Total Bilirubin 0.8, AST 27, ALT 45, Alkaline Phosphatase 58, Lactate Dehydrogenase 392, Total Creatine Kinase 44 , Troponin I < 0.01, Total Protein 7.0, Albumin 3.7, Globulin 3.2, Albumin/ Globulin Ratio 1.2 05/04/17 18:15: WBC 6.7, RBC 3.20 L, Hgb 10.9 L, Hct 32.4 L, MCV 101.3, MCH 34.1 , MCHC 33.6, RDW 12.9, Plt Count 213, MPV 9.7, Gran % 72.6 H, Lymph % (Auto) 15.6 L, [place] % (Auto) 10.1 H, Eos % (Auto) 1.3 L, Baso % (Auto) 0.4, Gran # 4.89 , Lymph # 1.1 L, [place] # 0.7 H, Eos # 0.1, Baso # 0.03 Vital Signs Temp Pulse Pulse Resp BP Pulse Ox 05/06/17 09:07 54 L 127/62 05/06/17 09:04 54 L 127/62 05/06/17 06:42 98.5 F 54 L 17 127/62 05/05/17 17:15 59 L 145/68 05/05/17 16:00 59 L 145/68 05/05/17 09:48 74 132/62 05/05/17 09:27 74 132/62 05/05/17 01:21 60 20 05/05/17 01:16 97.8 F 69 20 149/70 05/04/17 21:31 78 18 149/67 100 05/04/17 17:50 98.9 F 108 H 20 150/[address] Head 05/04/17 IMPRESSION: 1. No acute intracranial hemorrhage or acute territorial type infarct. 2. Hypodense lacunar infarcts are again visualized within the bilateral basal ganglia, largest on the right side. 3. There are periventricular foci of hypodensity, likely representing small vessel ischemic disease in a patient this age. 4. Mild atrophy. 5. There is stable ventriculomegaly. Normal pressure hydrocephalus cannot be excluded. ct facial bones: 05/04/17 IMPRESSION: 1. The bilateral nasal bones are fractured. 2. Stable calcifications or fracture fragments are visualized anterior to the nasal spine. 3. Paranasal sinus disease is noted above. 4. Additional CT findings described above. left ribs: ? fracture left 7th rib chest xray; no infiltrate DSM 5 Symptoms Update: Shortly pt is 76 yo male with multiple medical problems including HTN, Parkinson 's, multiple falls, CAD, no previous psych admissions, not known suicidal attempts, pt was brought to the hospital after pt's daughter called EMS, pt made statement "it would be better of if he wasn't alive". Pt lives alone, recent brake up with significant other, pt has no support, pt was not eating for the past three days, pt could not be maintained as outpatient setting, needs further evaluation and stabilization in acute psychiatric unit. pt was seen and examined today at the [place] [facility] area, pt said he has difficulties to fall and to stay asleep, pt reported that he has transient hopelessness, and feeling sorry that he lost his relationship but denied thoughts of harming self or others. pt said that he tolerates Lexapro well, denied any side effects. as per staff pt likes to be around people. Review of Systems: see Medical consult, discussed with and ( neuro), pt will be followed up as outpatient. pt tolerates meds well, no side effects observed or reported, AIMS 0, no EPS. 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 slow, low volume and monotonous speech, there is some psychomotor retardation, good eye contact, mood described: "I am depressed", goal directed thought process, thought content: denied SI/ HI, pt denied v/a/t hallucinations, denied paranoid ideation, insight/judgment: are fair , impulses are well controlled. Impression: r/o MDD r/o adjustment disorder with depressed mood r/o mood disorder due to a C r/o NPH multiple medical issues see medical consult Treatment plan: Milieu/structure/supportive therapy Medical consult appreciated, see medical team note for more detailed info SW consultation for discharge plan and social issues Med management lexapro 5mg po daily for depression sonata 2.5mg po hs for insomnia all meds were resumed PT evaluation Neurology eval, was called for NPH, recommended MRI to r/o NPH ( normal pressure hydrocephalus), will f/u on result Family involvement Follow up on labs Will monitor closely SW evaluation for d/c planning Pt was educated about risk/benefits and alternatives of medications, coping strategies (safety plan, suicide prevention), relapse prevention, importance of follow up with psychiatrist and therapist, stay away from drugs/alcohol/smoking Medication Change: Yes (sonata 2.5mg hs ) Medical Record Reviewed: Yes Mental Status Examination - Homicidal Ideation Homicidal Ideation: No Goal/Treatment Plan - Goal/Treatment Plan Need for Continued Stay: Remain at risks for inpatient hospitalization, Severe depression anxiety, Discharge may exacerbated symptoms, Severe functional impairment Estimated Date of D/C: 05/11/17 (will monitor closely)
--- NOTE | 2017-05-08 09:17 | PCM.PYCHPN ---
Psychiatric Progress Note - Psychiatric Progress Note Patient seen today, length of contact: 25 min Patient Chief Complaint: "pretty good, much better" Problems Identified/Issues Discussed: I reviewed assessment and recent notes. I met with patient at in the dayroom. Patient is fairly calm and cooperative. Oriented x3 with fair focus. He reports that he is "pretty good, much better" since admission, more hopeful. Reports of sleep is improving. Thought process is coherent and logical. Patient denies any perceptual disturbance, wishes or suicidal thoughts. Affect is constricted but demonstrating some reactivity. Patient denies any new discomfort, pain or side effects. He doesn't appear to be in distress. Nursing notes indicate that patient has been calm, compliant with medications and visible on the unit. Appears brighter, attending groups and seen socializing with peers. There were no behavioral issues overnight . Diagnostic Results: r/o MDD r/o adjustment disorder with depressed mood r/o mood disorder due to a GMC r/o NPH multiple medical issues see medical consult Medication Change: No ( ) Medical Record Reviewed: Yes Mental Status Examination - Cognitive Function Orientation: Person, Place, Situation - Mood Mood: Depressed ("pretty good, much better" ) - Affect Affect: Constricted (with some reactivity) - Speech Speech: Appropriate - Formal Thought Process Formal Thought Process: No Impairment - Suicidal Ideation Suicidal Ideation: No - Homicidal Ideation Homicidal Ideation: No Goal/Treatment Plan - Goal/Treatment Plan Need for Continued Stay: Remain at risks for inpatient hospitalization, Severe depression anxiety, Discharge may exacerbated symptoms, Severe functional impairment Progress Toward Problem(s) and Goals/Treatment Plan: * c/w current tx and plan * No new weekend labs thus far * Vitals reviewed and noted below: Selected Entries 05/07/17 05/07/17 05/07/17 06:48 09:04 09:07 Temperature 97.4 F L Pulse Rate 57 L 57 L 57 L Respiratory 16 Rate Blood Pressure 122/54 L 122/54 L 122/54 L 05/07/17 05/07/17 16:00 16:58 Temperature Pulse Rate 58 L 58 L Respiratory Rate Blood Pressure 119/56 L 119/56 L Estimated Date of D/C: 05/11/17 (will monitor closely)
[2017-05-08] MEDS: Multivitamin Vitamin B Complex (Nephro-Vite) Tab PO SCH (09:19)
[2017-05-08] MEDS: Enoxaparin 40 mg Syringe SC SCH (09:20)
[2017-05-08] MEDS: CARBIDOPA PO SCH ×2 (09:21→17:08)
[2017-05-08] MEDS: LEVODOPA PO SCH ×2 (09:21→17:08)
[2017-05-08] MEDS: Aspirin 325 mg EC Tablets PO SCH (09:21)
[2017-05-08] MEDS: ENTACAPONE PO SCH ×2 (09:21→17:08)
[2017-05-08] MEDS: Pantoprazole 40 mg EC Tab PO SCH (09:22)
--- NOTE | 2017-05-08 10:24 | PN ---
DATE: 05/08/2017 LOCATION: The patient is in room 508, bed 1. REASON FOR CONSULTATION: Coronary artery disease, hypertension, hyperlipidemia, depression, and history of falls. SUBJECTIVE: The patient is sitting in wheelchair, conscious, alert. Denies any chest pain, shortness of breath or palpitation. The lateral wall chest pain, which he has due to fall with local tenderness has also improved, he did not have that pain anymore. PHYSICAL EXAMINATION: VITAL SIGNS: Blood pressure of 119/57, respirations of 17, pulse of 58, and temperature of 97.6. HEENT: Head is normocephalic. Eyes; pupils are normal. Conjunctivae are slightly pale. NECK: JVP is low. Carotid is equal. THORAX: AP diameter normal. LUNGS: Clear. CARDIOVASCULAR: S1 and S2. ABDOMEN: Soft. No tenderness. No organomegaly. Bowel sounds are normal. EXTREMITIES: No clubbing. No cyanosis. LABORATORY DATA: Labs were done on 05/04/2017 and 05/05/2017, they were reported on the previous notes. DIAGNOSTIC DATA: The patient's recent cardiac workup, the patient had a stress test on 12/23/2016, which showed ischemia with left ventricular ejection fraction of 39% following that the patient had a cardiac catheterization on 01/21/2017, which showed all the previous stents were open and the patient had moderate disease in the left main, left anterior descending artery, circumflex, and right coronary artery, which did not require any intervention, left ventricular ejection fraction of about 35% to 40%. The patient detailed cardiac history has been in our initial consult. PLAN: The patient from cardiac point of view is stable and continue the psychiatric treatment for depression. The patient is on amiodarone 200 mg daily, aspirin 325 mg daily, Lipitor 20 daily, metoprolol 25 b.i.d., Lovenox 40 mg subcutaneous daily, Protonix 40 mg daily, carbidopa and levodopa, entacapone one tablet b.i.d., and Zetia 10 mg daily. DIAGNOSES: Coronary artery disease, status post multiple stents, left ventricular systolic dysfunction, hypertension, hyperlipidemia, anemia, depression, parkinsonism, history of recent fall due to unsteady gait and was at [facility], history of wide complex tachycardia, which was probably ventricular tachycardia. We will continue to follow. Marva Coppola MD [facility] # [id number]
--- NOTE | 2017-05-09 09:09 | PCM.PYCHPN ---
Psychiatric Progress Note - Psychiatric Progress Note Patient seen today, length of contact: 25 min Patient Chief Complaint: "pretty good, much better" Problems Identified/Issues Discussed: I reviewed recent notes and met with patient at bedside. Patient is fairly calm and cooperative. Oriented x3 with fair focus. He denies any new concerns and still feels improved since admission. Slept well. Thought process is coherent and logical. Patient denies any perceptual disturbance, wishes or suicidal thoughts. Affect is constricted but demonstrating some reactivity. Patient denies any new discomfort except for mild headache. Tolerating medications and doesn't appear to be in distress. Nursing notes indicate that patient has been calm, compliant with medications and visible on the unit. Appears brighter, attending groups and seen socializing with peers. There were no behavioral issues over the weekend. Diagnostic Results: r/o MDD r/o adjustment disorder with depressed mood r/o mood disorder due to a GMC r/o NPH multiple medical issues see medical consult Medication Change: No ( ) Medical Record Reviewed: Yes Mental Status Examination - Cognitive Function Orientation: Person, Place, Situation - Mood Mood: Depressed ("pretty good, much better" ) - Affect Affect: Constricted (with some reactivity) - Speech Speech: Appropriate - Formal Thought Process Formal Thought Process: No Impairment - Suicidal Ideation Suicidal Ideation: No - Homicidal Ideation Homicidal Ideation: No Goal/Treatment Plan - Goal/Treatment Plan Need for Continued Stay: Remain at risks for inpatient hospitalization, Severe depression anxiety, Discharge may exacerbated symptoms, Severe functional impairment Progress Toward Problem(s) and Goals/Treatment Plan: * c/w current tx and plan * Appreciate f/u by Dr. Coppola on 05/08/17~will continue to f/u * No new weekend labs * Vitals reviewed and noted below: Selected Entries 05/08/17 05/08/17 04:00 06:32 Temperature 97.6 F Pulse Rate 58 L 58 L Respiratory 17 Rate Blood Pressure 130/67 119/57 L Estimated Date of D/C: 05/11/17 (will monitor closely)
[2017-05-09] MEDS: Enoxaparin 40 mg Syringe SC SCH (09:15)
[2017-05-09] MEDS: Pantoprazole 40 mg EC Tab PO SCH (09:15)
[2017-05-09] MEDS: Aspirin 325 mg EC Tablets PO SCH (09:15)
[2017-05-09] MEDS: ENTACAPONE PO SCH ×2 (09:16→18:00)
[2017-05-09] MEDS: Multivitamin Vitamin B Complex (Nephro-Vite) Tab PO SCH (09:16)
[2017-05-09] MEDS: CARBIDOPA PO SCH ×2 (09:16→18:00)
[2017-05-09] MEDS: LEVODOPA PO SCH ×2 (09:16→18:00)
--- NOTE | 2017-05-09 12:09 | PN ---
DATE: 05/09/2017 The patient in room #508, bed #1. REASON FOR CONSULTATION: Coronary artery disease, history of PTCA with stent insertion, hypertension, hyperlipidemia, depression, history of falls. SUBJECTIVE: The patient denies any cardiac symptoms like chest pain, shortness of breath, or palpitation. His chest pain, which was associated with a fall due to contusion of the chest wall, this also has resolved. PHYSICAL EXAMINATION: VITAL SIGNS: Blood pressure 115/58, respirations 17, pulse is 55, temperature 97.9. HEENT: Head is normocephalic. Eyes, pupils normal. Conjunctivae slightly pale. NECK: JVP low. Carotid is equal. THORAX: AP diameter normal. LUNGS: Clear. CARDIOVASCULAR: S1 and S2. ABDOMEN: Soft. No tenderness. No organomegaly. Bowel sounds are normal. EXTREMITIES: No clubbing. No cyanosis. LABORATORY DATA: Labs were done on 05/04/2017, they were reported in our previous reports. DIAGNOSES: History of fall due to imbalance, depression, coronary artery disease, history of stent insertion, Parkinson's disease, hypertension, hyperlipidemia, anemia, contusion to chest wall, which has improved, injury to nose since fall. Stress test, 12/23/2016, showed ischemia with ejection fraction of 39%. Following that, the patient had catheterization, 01/21/2017, that showed all the previous stents were open. There was moderate disease in the left main, left anterior descending artery, and circumflex, and right coronary artery, which did not need any intervention and medical therapy was suggested. On cath, ejection fraction was 35%-40% and further detailed cardiac history is mentioned in our consult of 05/05/2017. PLAN: The patient has no anginal symptoms and he says his depression is also getting better and his cardiac status is stable with the plan and therapy of amiodarone 200 mg daily, aspirin 325 mg daily, Lexapro 5 mg daily, Lipitor 20 mg daily, metoprolol 25 mg b.i.d., Lovenox 40 mg subcutaneous daily, Plavix 75 mg daily, Protonix 40 mg daily, Sonata 5 mg p.o. h.s., carbidopa/levodopa, entacapone one tablet p.o. b.i.d., Zetia 10 mg daily. We will continue present therapy. Marva Coppola MD [facility] # [id number]
[2017-05-10] MEDS: Pantoprazole 40 mg EC Tab PO SCH (09:16)
[2017-05-10] MEDS: Aspirin 325 mg EC Tablets PO SCH (09:16)
[2017-05-10] MEDS: Multivitamin Vitamin B Complex (Nephro-Vite) Tab PO SCH (09:16)
[2017-05-10] MEDS: Enoxaparin 40 mg Syringe SC SCH (09:17)
[2017-05-10] MEDS: ENTACAPONE PO SCH ×2 (09:17→17:36)
[2017-05-10] MEDS: CARBIDOPA PO SCH ×2 (09:17→17:36)
[2017-05-10] MEDS: LEVODOPA PO SCH ×2 (09:17→17:36)
--- NOTE | 2017-05-10 16:35 | PCM.PYCHPN ---
Psychiatric Progress Note - Psychiatric Progress Note Patient seen today, length of contact: 30min Patient Chief Complaint: "weekend was hectic...." Medical Problems: Parkinson's disease, hypertension, multiple falls, CAD, ventriculomegaly seen on head CT r/o NPH Diagnostic Results: 05/04/17 18:15 05/04/17 18:15 Lab Results 05/05/17 07:30: TSH 3rd Generation 0.90 05/05/17 07:30: Fasting Glucose 105, Triglycerides 61, Cholesterol 115 L, LDL Cholesterol Direct 66, HDL Cholesterol 33 05/05/17 07:30: RPR Nonreactive 05/04/17 21:00: Urine Opiates Screen Negative, Urine Methadone Screen Negative, Ur Barbiturates Screen Negative, Ur Phencyclidine Scrn Negative, Ur Amphetamines Screen Negative, U Benzodiazepines Scrn Negative, U Oth Cocaine Metabols Negative, U Cannabinoids Screen Negative 05/04/17 21:00: Urine Color Yellow, Urine Appearance Sl cloudy, Urine pH 5.5, Ur Specific [place] 1.025, Urine Protein Trace H, Urine Glucose (UA) Negative, Urine Ketones Trace H, Urine Blood Small H, Urine Nitrate Negative, Urine Bilirubin Negative, Urine Urobilinogen 0.2, Ur Leukocyte Esterase Negative, Urine RBC 2 - 5, Urine WBC 0 - 2, Ur Epithelial Cells 0 - 2, Urine Bacteria Occ 05/04/17 18:15: PT 12.0, INR 1.10 H, APTT 28.3 05/04/17 18:15: Alcohol, Quantitative < 10 05/04/17 18:15: Salicylates < 1 L, Acetaminophen < 10.0 L 05/04/17 18:15: Sodium 140, Potassium 4.0, Chloride 104, Carbon Dioxide 29, Anion Gap 11, BUN 18, Creatinine 1.0, Est GFR ( Amer) > 60, Est GFR (Non- Af Amer) > 60, Random Glucose 94, Calcium 9.1, Total Bilirubin 0.8, AST 27, ALT 45, Alkaline Phosphatase 58, Lactate Dehydrogenase 392, Total Creatine Kinase 44 , Troponin I < 0.01, Total Protein 7.0, Albumin 3.7, Globulin 3.2, Albumin/ Globulin Ratio 1.2 05/04/17 18:15: WBC 6.7, RBC 3.20 L, Hgb 10.9 L, Hct 32.4 L, MCV 101.3, MCH 34.1 , MCHC 33.6, RDW 12.9, Plt Count 213, MPV 9.7, Gran % 72.6 H, Lymph % (Auto) 15.6 L, [place] % (Auto) 10.1 H, Eos % (Auto) 1.3 L, Baso % (Auto) 0.4, Gran # 4.89 , Lymph # 1.1 L, [place] # 0.7 H, Eos # 0.1, Baso # 0.03 Vital Signs Temp Pulse Pulse Resp BP Pulse Ox 05/06/17 09:07 54 L 127/62 05/06/17 09:04 54 L 127/62 05/06/17 06:42 98.5 F 54 L 17 127/62 05/05/17 17:15 59 L 145/68 05/05/17 16:00 59 L 145/68 05/05/17 09:48 74 132/62 05/05/17 09:27 74 132/62 05/05/17 01:21 60 20 05/05/17 01:16 97.8 F 69 20 149/70 05/04/17 21:31 78 18 149/67 100 05/04/17 17:50 98.9 F 108 H 20 150/[address] Head 05/04/17 IMPRESSION: 1. No acute intracranial hemorrhage or acute territorial type infarct. 2. Hypodense lacunar infarcts are again visualized within the bilateral basal ganglia, largest on the right side. 3. There are periventricular foci of hypodensity, likely representing small vessel ischemic disease in a patient this age. 4. Mild atrophy. 5. There is stable ventriculomegaly. Normal pressure hydrocephalus cannot be excluded. ct facial bones: 05/04/17 IMPRESSION: 1. The bilateral nasal bones are fractured. 2. Stable calcifications or fracture fragments are visualized anterior to the nasal spine. 3. Paranasal sinus disease is noted above. 4. Additional CT findings described above. left ribs: ? fracture left 7th rib chest xray; no infiltrate MRI: no acute changes, the same since 2013 DSM 5 Symptoms Update: Shortly pt is 76 yo male with multiple medical problems including HTN, Parkinson 's, multiple falls, CAD, no previous psych admissions, not known suicidal attempts, pt was brought to the hospital after pt's daughter called EMS, pt made statement "it would be better of if he wasn't alive". Pt lives alone, recent brake up with significant other, pt has no support, pt was not eating for the past three days, pt could not be maintained as outpatient setting, needs further evaluation and stabilization in acute psychiatric unit. pt was seen and examined today at the treatment team meeting, pt said that weekend was kind of hectic because one of the pt in the unit was not doing well , pt said he was feeling kind of depressed, but now pt reported that he feels "little better", pt reported sonata gives him a good night sleep, pt willing to increase lexapro to 10mg po daily. pt tolerates meds well, no side effects observed or reported, AIMS 0, no EPS. 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 slow, low volume and monotonous speech, there is some psychomotor retardation, good eye contact, mood described: "I am better today", goal directed thought process, thought content: denied SI/ HI, pt denied v/a/t hallucinations, denied paranoid ideation, insight/judgment: are fair , impulses are well controlled. Impression: r/o MDD r/o adjustment disorder with depressed mood r/o mood disorder due to a C r/o NPH multiple medical issues see medical consult Treatment plan: Milieu/structure/supportive therapy Medical consult appreciated, see medical team note for more detailed info consultation for discharge plan and social issues Med management lexapro 10mg po daily for depression sonata 5mg po hs for insomnia all meds were resumed PT evaluation Neurology eval, was called for NPH, neurologically stable, no further recommendations Family involvement Follow up on labs Will monitor closely evaluation for d/c planning Pt was educated about risk/benefits and alternatives of medications, coping strategies (safety plan, suicide prevention), relapse prevention, importance of follow up with psychiatrist and therapist, stay away from drugs/alcohol/smoking Medication Change: Yes (lexapro was increased) Medical Record Reviewed: Yes Consults ordered or reviewed: medical consult appreciated Neurology consult appreciated for Parkinson's disease, hypertension, multiple falls, ventriculomegaly seen on head CT, r/o NPH MRI Brain without contrast ordered for further evaluation of ventriculomegaly; will follow up results Mental Status Examination - Cognitive Function Orientation: Person, Place, Situation - Mood Mood: Depressed ("pretty good, much better" ) - Affect Affect: Constricted (with some reactivity) - Speech Speech: Appropriate - Formal Thought Process Formal Thought Process: No Impairment - Suicidal Ideation Suicidal Ideation: No - Homicidal Ideation Homicidal Ideation: No Goal/Treatment Plan - Goal/Treatment Plan Need for Continued Stay: Remain at risks for inpatient hospitalization, Severe depression anxiety, Discharge may exacerbated symptoms, Severe functional impairment Estimated Date of D/C: 05/11/17 (will monitor closely)
[2017-05-11 06:55] VITALS: BP 139/57; PULSE 61; RESP 17; TEMP 97.9
--- NOTE | 2017-05-11 08:40 | PN ---
DATE: 05/10/2017 LOCATION: The patient is in room 508, bed 1. REASON FOR CONSULTATION: Coronary artery disease, history of PTCA with stent insertion, hypertension, hyperlipidemia, depression, and history of falls. SUBJECTIVE: The patient denies any cardiac symptoms like chest pain, shortness of breath, or palpitations. wall chest pain,which was due to contusion of the chest due to falling and also has resolved. PHYSICAL EXAMINATION: VITAL SIGNS: Blood pressure 132/67, respirations 20, pulse 67, and temperature 97.6. HEENT: Head is normocephalic. Eyes; pupils normal. Conjunctivae slightly pale. NECK: JVP is low. Carotid is equal. THORAX: AP diameter normal. LUNGS: Clear. CARDIOVASCULAR: S1 and S2. ABDOMEN: Soft. No tenderness. No organomegaly. Bowel sounds are normal. EXTREMITIES: No clubbing. No cyanosis. LABORATORY DATA: Labs were done on 05/04/2017 and they were described in our previous preliminary notes. DIAGNOSES: History of fall due to imbalance; depression; coronary artery disease; history of stent insertion; Parkinson's disease; hypertension; hyperlipidemia; anemia; contusion to the chest wall, which has improved; and injury to nose since fall. PLAN: The patient already had a stress test on 12/23/2016, which showed ischemia with ejection fraction of 39%. Following that stress test, the patient had cardiac catheterization on 01/21/2017 that showed all the previous stents were opened. There was moderate disease in the left main, left anterior descending coronary artery and circumflex, and right coronary artery, which did not need any intervention and medical therapy was suggested. So, we will continue medical therapy, which is amiodarone 200 mg daily, aspirin 325 daily, Lexapro 10 mg p.o. daily, Lipitor 20 daily, metoprolol 25 b.i.d., Lovenox 40 subcutaneously daily, Plavix 75 mg daily, Protonix 40 daily, and Zetia 10 mg p.o. at dinnertime. Clinically, cardiac status is stable. Continue psychiatric therapy for the depression. Marva Coppola MD [facility] # [id number]
[2017-05-11] MEDS: Enoxaparin 40 mg Syringe SC SCH (09:27)
[2017-05-11] MEDS: Aspirin 325 mg EC Tablets PO SCH (09:29)
[2017-05-11] MEDS: Pantoprazole 40 mg EC Tab PO SCH (09:29)
[2017-05-11] MEDS: CARBIDOPA PO SCH (09:29)
[2017-05-11] MEDS: LEVODOPA PO SCH (09:29)
[2017-05-11] MEDS: Multivitamin Vitamin B Complex (Nephro-Vite) Tab PO SCH (09:29)
[2017-05-11] MEDS: ENTACAPONE PO SCH (09:29)
--- NOTE | 2017-05-11 13:44 | PCM.PYCHDC ---
Mental Status Examination - Mental Status Examination Orientation: Person, Place, Situation, Time Memory: Intact Mood: Neutral Affect: Constricted (but reactive, mood congruent) Speech: Appropriate Attention: WNL Concentration: WNL Association: WNL Fund of Knowledge: WNL Formal Thought Process: No Impairment Description of patient's judgement and insight: Pt has improved insight into mental and medical illness, pt was compliant with medications and unit rules and regulations, pt was going to groups, was calm, cooperative, socially appropriate, no behavioral incidents, no agitation, no aggression. Psychotic Thoughts and Behaviors: Pt denied v/a/t hallucinations, denied paranoid ideations, pt does not appear to be psychotic, and thought process is goal directed. Suicidal Ideation: No Current Homicidal Ideation?: No Plan: pt adamantly denied thoughts of harming self or others denied intent or plan. Discharge Summary - Discharge Note Reason for Hospitalization: pt was admitted for evaluation of depressive symptoms, feeling of hopeless and helpless, passive wish to be . pt was willing to get better, was admitted under voluntary status. Psychiatric History (includes Medical, Family, Personal Hx): pt denied previous psychiatric h/o Laboratory Data: 05/04/17 18:15 05/04/17 18:15 Lab Results 05/05/17 07:30: TSH 3rd Generation 0.90 05/05/17 07:30: Fasting Glucose 105, Triglycerides 61, Cholesterol 115 L, LDL Cholesterol Direct 66, HDL Cholesterol 33 05/05/17 07:30: RPR Nonreactive 05/04/17 21:00: Urine Opiates Screen Negative, Urine Methadone Screen Negative, Ur Barbiturates Screen Negative, Ur Phencyclidine Scrn Negative, Ur Amphetamines Screen Negative, U Benzodiazepines Scrn Negative, U Oth Cocaine Metabols Negative, U Cannabinoids Screen Negative 05/04/17 21:00: Urine Color Yellow, Urine Appearance Sl cloudy, Urine pH 5.5, Ur Specific [place] 1.025, Urine Protein Trace H, Urine Glucose (UA) Negative, Urine Ketones Trace H, Urine Blood Small H, Urine Nitrate Negative, Urine Bilirubin Negative, Urine Urobilinogen 0.2, Ur Leukocyte Esterase Negative, Urine RBC 2 - 5, Urine WBC 0 - 2, Ur Epithelial Cells 0 - 2, Urine Bacteria Occ 05/04/17 18:15: PT 12.0, INR 1.10 H, APTT 28.3 05/04/17 18:15: Alcohol, Quantitative < 10 05/04/17 18:15: Salicylates < 1 L, Acetaminophen < 10.0 L 05/04/17 18:15: Sodium 140, Potassium 4.0, Chloride 104, Carbon Dioxide 29, Anion Gap 11, BUN 18, Creatinine 1.0, Est GFR ( Amer) > 60, Est GFR (Non- Af Amer) > 60, Random Glucose 94, Calcium 9.1, Total Bilirubin 0.8, AST 27, ALT 45, Alkaline Phosphatase 58, Lactate Dehydrogenase 392, Total Creatine Kinase 44 , Troponin I < 0.01, Total Protein 7.0, Albumin 3.7, Globulin 3.2, Albumin/ Globulin Ratio 1.2 05/04/17 18:15: WBC 6.7, RBC 3.20 L, Hgb 10.9 L, Hct 32.4 L, MCV 101.3, MCH 34.1 , MCHC 33.6, RDW 12.9, Plt Count 213, MPV 9.7, Gran % 72.6 H, Lymph % (Auto) 15.6 L, [place] % (Auto) 10.1 H, Eos % (Auto) 1.3 L, Baso % (Auto) 0.4, Gran # 4.89 , Lymph # 1.1 L, [place] # 0.7 H, Eos # 0.1, Baso # 0.03 Vital Signs Temp Pulse Pulse Resp BP Pulse Ox 05/11/17 09:29 61 139/57 L 05/11/17 09:28 61 139/57 L 05/11/17 06:54 97.9 F 61 17 139/57 L 05/10/17 17:36 67 132/67 05/10/17 16:00 67 132/67 05/10/17 09:17 56 L 106/58 L 05/10/17 09:15 56 L 106/58 L 05/10/17 07:13 97.6 F 56 L 16 106/58 L 05/09/17 16:18 59 L 127/60 05/09/17 09:15 55 L 115/58 L 05/09/17 07:00 97.9 F 55 L 17 115/58 L 05/08/17 06:32 97.6 F 58 L 17 119/57 L 05/08/17 04:00 58 L 130/67 05/07/17 16:58 58 L 119/56 L 05/07/17 16:00 58 L 119/56 L 05/07/17 09:07 57 L 122/54 L 05/07/17 09:04 57 L 122/54 L 05/07/17 06:48 97.4 F L 57 L 16 122/54 L 05/06/17 16:54 58 L 135/64 05/06/17 16:00 58 L 135/64 05/06/17 09:07 54 L 127/62 05/06/17 09:04 54 L 127/62 05/06/17 06:42 98.5 F 54 L 17 127/62 05/05/17 17:15 59 L 145/68 05/05/17 16:00 59 L 145/68 05/05/17 09:48 74 132/62 05/05/17 09:27 74 132/62 05/05/17 01:21 60 20 05/05/17 01:16 97.8 F 69 20 149/70 05/04/17 21:31 78 18 149/67 100 05/04/17 17:50 98.9 F 108 H 20 150/72 99 Consultations:: List each consultation separately and include: 1. Reason for request. 2. Findings. 3. Follow-up Consultations: medical consult appreciated Neurology consult appreciated for Parkinson's disease, hypertension, multiple falls, ventriculomegaly seen on head CT, r/o NPH MRI Brain without contrast ordered for further evaluation of ventriculomegaly; will follow up results MRI of brain did not show any changes since 2012 Summary of Hospital Course include:: 1. Description of specific treatment plan utilized for patients during their course of treatmen. 2. Summarize the time- course for resolution of acute symptoms and/or regressed behaviors. 3. Describe issues identified and worked on during hospitalization. 4. Describe medication utilized. 5. Describe medical problems identified and treated. 6. Reassessment of suicide risk Summary of Hospital Course: Shortly pt is 76 yo male with multiple medical problems including HTN, Parkinson 's, multiple falls, CAD, no previous psych admissions, not known suicidal attempts, pt was brought to the hospital after pt's daughter called EMS, pt made statement "it would be better of if he wasn't alive". Pt lives alone, recent brake up with significant other, pt has no support, pt was not eating for the past three days, pt could not be maintained as outpatient setting, needs further evaluation and stabilization in acute psychiatric unit. initially pt was seen and examined at the treatment team meeting, fair personal hygiene but not shaved, has bruise under his left eye, has scratch on the nose, fair ADLs, pt was in the wheelchair, pt ambulates with the walker at home. pt got XR of the ribs, Maxillofacial CT, Head CT , CXR were done at the ED, pt was medically stable for transfer to psychiatric inpatient unit. pt was on 1:1 over night, for high risk of fall, pt was seen pt was not confused, said he could ask for help when needs to ambulate. Pt said he was stressed out because of the recent brake up with his significant other, pt said that she blocked him from the social media, the reason for the break up was alcohol addiction, pt said he found her hiding liquor and drinking it, then she became verbally abusive. pt said for the past three weeks he was feeling depressed, hopeless, helpless, pt also reported to have poor appetite and sleep, pt said that he did not want to kill himself because "it is against of my believe", but in the ED pt said that he would be not mind. Pt denied anxiety, pt denied v/a/t hallucinations. pt denied using drugs, drinks socially about two times a month. denied smoking, h/o smoking but quit 40years ago. Access to the weapons: denied Past psychiatric h/o: denied Hospitalization: denied Suicidal attempts: denied Medical h/o: pt has h/o Parkinson's tx by , CAD, h/o HTN, dyslipidemia , frequent falls. 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 Treatment goals: "I want to get better" Labs: 05/04/17 18:15 05/04/17 18:15 Lab Results 05/05/17 07:30: TSH 3rd Generation 0.90 05/05/17 07:30: Fasting Glucose 105, Triglycerides 61, Cholesterol 115 L, LDL Cholesterol Direct 66, HDL Cholesterol 33 05/04/17 21:00: Urine Opiates Screen Negative, Urine Methadone Screen Negative, Ur Barbiturates Screen Negative, Ur Phencyclidine Scrn Negative, Ur Amphetamines Screen Negative, U Benzodiazepines Scrn Negative, U Oth Cocaine Metabols Negative, U Cannabinoids Screen Negative 05/04/17 21:00: Urine Color Yellow, Urine Appearance Sl cloudy, Urine pH 5.5, Ur Specific [place] 1.025, Urine Protein Trace H, Urine Glucose (UA) Negative, Urine Ketones Trace H, Urine Blood Small H, Urine Nitrate Negative, Urine Bilirubin Negative, Urine Urobilinogen 0.2, Ur Leukocyte Esterase Negative, Urine RBC 2 - 5, Urine WBC 0 - 2, Ur Epithelial Cells 0 - 2, Urine Bacteria Occ 05/04/17 18:15: PT 12.0, INR 1.10 H, APTT 28.3 05/04/17 18:15: Alcohol, Quantitative < 10 05/04/17 18:15: Salicylates < 1 L, Acetaminophen < 10.0 L 05/04/17 18:15: Sodium 140, Potassium 4.0, Chloride 104, Carbon Dioxide 29, Anion Gap 11, BUN 18, Creatinine 1.0, Est GFR ( Amer) > 60, Est GFR (Non- Af Amer) > 60, Random Glucose 94, Calcium 9.1, Total Bilirubin 0.8, AST 27, ALT 45, Alkaline Phosphatase 58, Lactate Dehydrogenase 392, Total Creatine Kinase 44 , Troponin I < 0.01, Total Protein 7.0, Albumin 3.7, Globulin 3.2, Albumin/ Globulin Ratio 1.2 05/04/17 18:15: WBC 6.7, RBC 3.20 L, Hgb 10.9 L, Hct 32.4 L, MCV 101.3, MCH 34.1 , MCHC 33.6, RDW 12.9, Plt Count 213, MPV 9.7, Gran % 72.6 H, Lymph % (Auto) 15.6 L, [place] % (Auto) 10.1 H, Eos % (Auto) 1.3 L, Baso % (Auto) 0.4, Gran # 4.89 , Lymph # 1.1 L, [place] # 0.7 H, Eos # 0.1, Baso # 0.03 Vital Signs Temp Pulse Pulse Resp BP Pulse Ox 05/05/17 09:48 74 132/62 05/05/17 09:27 74 132/62 05/05/17 01:21 60 20 05/05/17 01:16 97.8 F 69 20 149/70 05/04/17 21:31 78 18 149/67 100 05/04/17 17:50 98.9 F 108 H 20 150/72 99 Review of Systems: see Medical consult, pt was seen by neurology consult, PT see notes for more detailed information over the course of this hospitalization pt was stabilized on the following meds: lexapro was slowly titrated to 10mg po daily for depression and anxiety sonata 5mg po hs for insomnia pt tolerated meds well, no side effects observed or reported, AIMS 0, no EPS. Over the course of this hospitalization pt was attending groups, pt also had medication management, had therapeutic milieu. Overall pt improved significantly, pt's affect became brighter, pt was less depressed, has realistic future oriented plans pt wants to attend ADTP (adult day treatment program), pt also does not appear to be psychotic, or anxious, pt was socially appropriate, no behavioral issues, pts insight improved as well and soon pt deemed to be ready for discharge. At the time of the discharge pt denied been depressed, denied thoughts of harming self or others, denied psychotic symptoms, and pt does not appeared to be psychotic, denied been anxious, pt is not in imminent danger to self or others, will be following up at 's office, information about follow up appointment, time and address provided to the pt, it is patient responsibility to follow up with outpatient clinic, PMD as well as specialists (see SW note for more detailed information). In case pt will need to obtain results of studies pending at discharge pt was provided with contact information of Psychiatric Inpatient unit [phone] as well as Medical Record Department [phone]. pt denied smoking, denied using alcohol, denied using drugs pt was provided with prescriptions for all of medications (please see medication reconciliation form) Pt was educated about safety plan in case of worsening of symptoms or in case of suicidal or homicidal ideation call 911 or go to the nearest ER, also was educated to take meds as prescribed and stay away from drugs, pt verbalized understanding. 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 Current Visit: Yes Status: Chronic Priority: Medium (3) Adjustment disorder with depressed mood Current Visit: Yes Status: Acute Priority: High - Final Diagnosis (DSM 5) Condition upon Discharge: FAIR Disposition: HOME/ ROUTINE Follow-up Treatment Plan: At the time of the discharge pt denied been depressed, denied thoughts of harming self or others, denied psychotic symptoms, and pt does not appeared to be psychotic, denied been anxious, pt is not in imminent danger to self or others, will be following up at 's office, information about follow up appointment, time and address provided to the pt, it is patient responsibility to follow up with outpatient clinic, PMD as well as specialists (see SW note for more detailed information). In case pt will need to obtain results of studies pending at discharge pt was provided with contact information of Psychiatric Inpatient unit [phone] as well as Medical Record Department [phone]. pt denied smoking, denied using alcohol, denied using drugs pt was provided with prescriptions for all of medications (please see medication reconciliation form) Pt was educated about safety plan in case of worsening of symptoms or in case of suicidal or homicidal ideation call 911 or go to the nearest ER, also was educated to take meds as prescribed and stay away from drugs, pt verbalized understanding. Prescriptions/Medication Reconciliation: Escitalopram [Lexapro] 10 mg PO DAILY #14 tab Zaleplon [Sonata] 5 mg PO HS #14 cap - Smoking Cessation Smoking Cessation Medication prescribed: No Reason for not providing: pt denied smoking - Antipsychotic Medications Pt discharged on 2 or more routine antipsychotic medications: No
--- NOTE | 2017-05-12 08:15 | PN ---
DATE: 05/11/2017 REASON FOR CONSULTATION: Coronary artery disease, history of PTCA, hypertension, hyperlipidemia, admitted depression, cardiac followup. SUBJECTIVE: The patient denies any chest pain, shortness of breath, or any palpitations. PHYSICAL EXAMINATION: VITAL SIGNS: Temperature afebrile, heart rate 61, blood pressure 139/57. HEENT: PERRLA, extraocular muscles intact. NECK: Supple. No carotid bruits or thyromegaly. CHEST: Clear to auscultation. HEART: S1 and S2 regular. ABDOMEN: Soft. EXTREMITIES: Clubbing and cyanosis negative. LABORATORY DATA: Blood workup as follows; WBC , 10.9 hemoglobin, hematocrit 32.4, platelet count 213. Chemistry shows sodium 140, potassium 4, chloride 104, carbon dioxide 29, anion gap of 11, BUN 18, creatinine 1.0. TSH 0.9, total triglyceride 61, total cholesterol 115, LDL 66, and HDL 33. IMPRESSION: A 76 -year-old male with past medical history of significant for coronary artery disease, Parkinson disease, history of fall and imbalance, depression, coronary artery disease status post stent in the past, hypertension, hyperlipidemia, admitted with depression in psych floor. CVS status is stable. The patient recently had cardiac catheterization on 01/21/2017, that shows patent previous stent. Moderate disease. Medical treatment is recommended. RECOMMENDATION: Continue aspirin, continue DVT prophylaxis, continue Lasix, continue Zetia, continue Protonix. CVS status is stable. We will follow with you. Thank you Dr. Patel for the opportunity in taking care of the patient, John Padilla. Marva Alanis MD
== END 2017-05-11 13:46 | disposition home or self-care (01) | DRG 884 ==
LOC: ED 17:40 → ERH 22:49 → PSYC 23:48
PROVIDERS: ADMIT Psychiatry & Neurology Psychiatry; ATTEND Psychiatry & Neurology Psychiatry
PROC: GZ3ZZZZ Medication Management (ICD-10-PCS; principal; 2017-05-05)
DX: F06.31 Mood disorder due to known physiological condition with depressive features (principal); F43.21 Adjustment disorder with depressed mood; G20 Parkinson's disease; D64.9 Anemia, unspecified; I10 Essential (primary) hypertension; I25.10 Atherosclerotic heart disease of native coronary artery without angina pectoris; K21.9 Gastro-esophageal reflux disease without esophagitis; E78.5 Hyperlipidemia, unspecified; I08.3 Combined rheumatic disorders of mitral, aortic and tricuspid valves; N40.0 Benign prostatic hyperplasia without lower urinary tract symptoms; Z91.14 Patient's other noncompliance with medication regimen; I25.2 Old myocardial infarction; S02.2XXD Fracture of nasal bones, subsequent encounter for fracture with routine healing; S20.219D Contusion of unspecified front wall of thorax, subsequent encounter; R29.6 Repeated falls; W18.30XD Fall on same level, unspecified, subsequent encounter; Z91.81 History of falling; Z79.02 Long term (current) use of antithrombotics/antiplatelets; Z79.82 Long term (current) use of aspirin; Z95.5 Presence of coronary angioplasty implant and graft; Z87.891 Personal history of nicotine dependence

== ENCOUNTER 2017-06-06 21:59 | Inpatient (IN) | payer MEDICARE, BC ==
[2017-06-06 22:06] VITALS: BMI 22.8
[2017-06-06 23:05] LABS: BASO # 0.02 K/mm3 (0.0-2.0); BASO % 0.3 % (0.0-3.0); EOS # 0.2 (0.0-0.7); EOS % 3.2 % (1.5-5.0); GRAN # 4.8 (1.4-6.5); GRAN % 76.2 % (50.0-68.0); HEMATOCRIT 36.2 % (42.0-52.0); LYMPH # 0.8 (1.2-3.4); LYMPH % 13.3 % (22.0-35.0); MEAN CELL VOLUME 103.1 fl (80.0-105.0); MEAN CORPUSCULAR HEMOGLOBIN 33.6 pg (25.0-35.0); MEAN CORPUSCULAR HGB CONC 32.6 g/dl (31.0-37.0); MEAN PLATELET VOLUME 9.9 fl (7.0-11.0); MONO # 0.4 (0.1-0.6); RED CELL DISTRIBUTION WIDTH 14.1 % (11.5-14.5); WHITE BLOOD COUNT 6.3 10^3/ul (4.5-11.0)
[2017-06-06 23:06] LABS: ALB/GLOB RATIO 1.2 (1.1-1.8); ALKALINE PHOSPHATASE 75 U/L (38-126); ALT/SGPT 21 U/L (7-56); AST/SGOT 30 U/L (17-59); BILIRUBIN,TOTAL 0.6 mg/dL (0.2-1.3); BLOOD UREA NITROGEN 25 mg/dL (7-21); CALCIUM 9.4 mg/dL (8.4-10.5); CARBON DIOXIDE 28 mmol/L (21-33); CHLORIDE 111 mmol/L (98-107); GFR AFRICAN-AMERICAN > 60; GLUCOSE,RANDOM 107 mg/dL (70-110); LIPASE 79 U/L (23-300); SODIUM 146 mmol/L (132-148); TOTAL PROTEIN 7.4 g/dL (5.8-8.3)
--- NOTE | 2017-06-06 23:12 | ED PDOC ---
Arrival/HPI <Rosendo Marie - Last Filed: 06/06/17 23:36> - General Historian: Patient, Family - History of Present Illness Time/Duration: Prior to Arrival Symptom Onset: Sudden Quality: Aching Severity Level: 4 <Aida Rodriguez - Last Filed: 06/07/17 03:25> - General Chief Complaint: Trauma Time Seen by Provider: 06/06/17 22:19 - History of Present Illness Narrative History of Present Illness (Text): 06/06/17 23:09 76-year-old male with a history of Parkinson's presents today with frequent falls at home. Patient had fallen 4 times yesterday and once today. Patient states today he fell backwards injuring the left fourth finger. Patient states he's noticed a deformity to the finger with laceration to the distal phalanx. States his tetanus shot was one year ago. Patient states he hit the back of his head. He denies loss of consciousness. He denies chest pain or shortness of breath. Denies abdominal pain. Denies nausea vomiting diarrhea constipation. Denies dizziness or weakness. Patient states he noticed that his left ankle was swollen but denies pain. Denies fevers or chills. He is complaining of urinary frequency. Denies dysuria. Patient's son at bedside states that the patient lives alone and with a history of frequent falls male no longer be able to take care of himself at home. (Aida Rodriguez) Past Medical History - Provider Review Nursing Documentation Reviewed: Yes - Travel History Have you recently traveled outside [place] w/in the past 3 mons?: No - Infectious Disease Hx of Infectious Diseases: None - Tetanus Immunization Tetanus Immunization: Up to Date - Cardiac Hx Hypertension: Yes Hx Pacemaker: No - Pulmonary Hx Pneumonia: Yes - Neurological Hx Paralysis: No Hx Parkinson's Disease: Yes - HEENT Other/Comment: WEARS RX GLASSES - Renal Hx Kidney Stones: Yes (LITHOTRYPSY/PASSED IT) - Endocrine/Metabolic Hx Endocrine Disorders: No - Hematological/Oncological Hx Blood Transfusions: Yes (MANY YRS AGO) Hx Blood Transfusion Reaction: No - Integumentary Hx Dermatological Disorder: No - Musculoskeletal/Rheumatological Hx Musculoskeletal Disorders: No - Gastrointestinal Hx Gastrointestinal Disorders: Yes (GI bleed) - Genitourinary/Gynecological Hx Prostate Problems: Yes (BPH) - Psychiatric Hx Emotional Abuse: No Hx Physical Abuse: No Hx Substance Use: No - Surgical History Hx Cardiac Catheterization: Yes Hx Coronary Stent: Yes (x5) Other/Comment: excision benign forehead lesiion - Anesthesia Hx Anesthesia: No Hx Anesthesia Reactions: No Hx Malignant Hyperthermia: No - Suicidal Assessment Feels Threatened In Home Enviroment: No <Aida Rodriguez - Last Filed: 06/07/17 03:25> Family/Social History - Physician Review Nursing Documentation Reviewed: Yes Family/Social History: Unknown Family HX Smoking Status: Former Smoker Hx Alcohol Use: Yes (ON OCCASION) Hx Substance Use: No <Aida Rodriguez - Last Filed: 06/07/17 03:25> Allergies/Home Meds <Rosendo Marie - Last Filed: 06/06/17 23:36> <Aida Rodriguez - Last Filed: 06/07/17 03:25> Allergies/Adverse Reactions: Allergies No Known Allergies Allergy (Verified 06/06/17 22:14) Home Medications: Home Meds Medication Instructions Recorded Confirmed Aspirin [Ecotrin] 325 mg PO DAILY 09/18/15 06/06/17 Ezetimibe/Simvastatin [Vytorin 10 mg PO DAILY 05/04/17 06/06/17 10-40 mg Tablet] Amantadine [Amantadine 100 mg Cap] 100 mg PO BID 06/06/17 06/06/17 Docusate [Colace] 100 mg PO BID 06/06/17 06/06/17 Entacapone [Comtan] 200 mg PO QID 06/06/17 06/06/17 Folic Acid 1 mg PO DAILY 06/06/17 06/06/17 Rotigotine [Neupro] 1 patch DAILY 06/06/17 06/06/17 Review of Systems - Review of Systems Constitutional: Fatigue. absent: Fevers Respiratory: absent: SOB, Cough Cardiovascular: absent: Chest Pain, Palpitations Gastrointestinal: absent: Abdominal Pain, Constipation, Diarrhea, Nausea, Vomiting Musculoskeletal: Arthralgias (left 4th finger pain.). absent: Back Pain, Neck Pain Skin: Laceration. absent: Pruritis Neurological: Headache, Dizziness, Disequilibrium Psychiatric: Depression. absent: Anxiety, Suicidal Ideation <Aida Rodriguez - Last Filed: 06/07/17 03:25> Physical Exam Vital Signs Reviewed: Yes Temperature: Afebrile Blood Pressure: Hypertensive Pulse: Regular Respiratory Rate: Normal Appearance: Positive for: Well-Appearing, Non-Toxic, Comfortable Pain Distress: None Mental Status: Positive for: Alert and Oriented X 3 - Systems Exam Head: Present: Contusion (+ ecchymosis noted to left posterior scalp; no step offs or crepitus), Swelling, Abrasion Pupils: Present: PERRL Extroacular Muscles: Present: EOMI Conjunctiva: Present: Normal Mouth: Present: Moist Mucous Membranes Neck: Present: Normal Range of Motion, Paraspinal Tenderness, Trachea Midline. No: MIDLINE TENDERNESS Respiratory/Chest: Present: Clear to Auscultation, Good Air Exchange. No: Respiratory Distress, Accessory Muscle Use, Tender to Palpation Cardiovascular: Present: Regular Rate and Rhythm, Normal S1, S2. No: Murmurs Abdomen: No: Tenderness, Distention, Rebound, Guarding Back: Present: Normal Inspection, Midline Tenderness. No: CVA Tenderness, Paraspinal Tenderness Upper Extremity: Present: NORMAL PULSES, Tenderness (left 4th finger; + 1.5cm laceration along volar aspect of distal aspect of finger; minimal bleeding; limited rom of distal phalanx. ), Swelling, Neurovascularly Intact, Capillary Refill < 2s, Deformity. No: Normal ROM, Erythema Lower Extremity: Present: Edema, Swelling (left ankle; + 2+ pitting edema noted to left ankle; no tenderness; sensation intact. cap refill <2. no calf tenderness. right ankle; no tenderness, no swelling.). No: CALF TENDERNESS, Normal ROM, Tenderness Neurological: Present: GCS=15, Speech Normal, Motor Func Grossly Intact, Normal Sensory Function, Other (tremor noted). No: Gait Normal Skin: Present: Warm, Dry Psychiatric: Present: Alert, Oriented x 3 <Aida Rodriguez - Last Filed: 06/07/17 03:25> Vital Signs Temp Pulse Resp BP Pulse Ox 06/06/17 22:13 97.4 F L 70 16 180/77 H 99 Medical Decision Making <Rosendo Marie - Last Filed: 06/06/17 23:36> <Aida Rodriguez - Last Filed: 06/07/17 03:25> ED Course and Treatment: 06/06/17 23:17 76-year-old male with a history of Parkinson's with frequent falls. Patient with a head injury left fourth finger laceration and left ankle swelling. CBC wnl CMP bun; 25 cr. 1.2 Troponin: 0.02 BNP: 983 Lipase wnl Urinalysis CAT scan of the head: FINDINGS: Brain: Atrophy. Bilateral white matter changes. This is nonspecific and may include microangiopathic disease, small lacunae of indeterminate chronicity, chronic infarcts and/or encephalomalacia. Old bilateral lacunae. Vascular calcification. No hemorrhage. No edema. Ventricles: Ventriculomegaly again noted. Bones: Skull is intact. Sinuses: Mild paranasal sinus mucosal thickening. Mastoid air cells: No mastoid effusion. IMPRESSION: No CT evidence of acute intracranial abnormality. Atrophy. Bilateral white matter changes. This is nonspecific and may include microangiopathic disease, small lacunae of indeterminate chronicity, chronic infarcts and/or encephalomalacia. Old bilateral lacunae. Vascular calcification. Ventriculomegaly again noted. Normal pressure hydrocephalus cannot be excluded. CAT scan of the neckFINDINGS: Vertebrae/discs: No acute fracture. No subluxation. Degenerative disc disease with loss in disc height and disc osteophyte formation. Facet arthropathy. Soft tissues: Carotid calcification. Lung apices: No acute abnormality as visualized. IMPRESSION: Negative for acute fracture. Details as above CAT scan of the lumbar spine: FINDINGS: Vertebrae/discs: No acute fracture. No subluxation. Levoscoliosis. Multilevel degenerative changes. Degenerative disc disease. Posterior disc bulging, most notable at L4-L5. Disc osteophyte formation. Facet arthropathy. Soft tissues: Extensive vascular calcification. Diverticulosis. IMPRESSION: Negative for acute fracture. Details as above. Correlate clinically. Followup as warranted. Venous duplex of the left lower extremity: no dvt x-ray left fourth finger: dislocation 4th finger at PIP dorsally. X-ray of the left ankle; no fracture Wound irrigated with copious amounts of normal saline using high pressure irrigation. procedure note; dislocated finger reduction, left 4th finger. using sterile technique; 2.5cc of 2% lidocaine injected locally for digital block; adequate anesthesia. left 4th distal phalanx was returned into place; area prepped and draped; laceration 1.5cm over volar 4th finger repaired using six 5.0 nylon sutures. patient tolerated procedure well. no complications. post reduction films; reduced. ? fx along volar aspect of PIP. finger splint applied. Laceration repair: 6 sutures placed. Tetanus up to date case discussed with dr. red and resident; will admit observational status to med/surg for possible placement. unsafe discharge. lives alone. frequent falls. results discussed with patient/family. impression; open fracture dislocation, finger, multiple falls, unsteady gait, elevated bnp admit med/surg. (Aida Rodriguez) - Lab Interpretations Lab Results: 06/06/17 22:04 06/06/17 22:04 Lab Results 06/06/17 22:04: PT 11.8, INR 1.08, APTT 27.4 06/06/17 22:04: WBC 6.3, RBC 3.51, Hgb 11.8 L, Hct 36.2 L, MCV 103.1, MCH 33.6, MCHC 32.6, RDW 14.1, Plt Count 194, MPV 9.9, Gran % 76.2 H, Lymph % (Auto) 13.3 L, [place] % (Auto) 7.0 H, Eos % (Auto) 3.2, Baso % (Auto) 0.3, Gran # 4.80, Lymph # 0.8 L, [place] # 0.4, Eos # 0.2, Baso # 0.02 06/06/17 22:04: Sodium 146, Potassium 4.0, Chloride 111 H, Carbon Dioxide 28, Anion Gap 11, BUN 25 H, Creatinine 1.2, Est GFR ( Amer) > 60, Est GFR ( Non-Af Amer) 59, Random Glucose 107, Calcium 9.4, Total Bilirubin 0.6, AST 30, ALT 21, Alkaline Phosphatase 75, Lactate Dehydrogenase 495, Total Creatine Kinase 106, Troponin I 0.02 D, NT-Pro-B Natriuret Pep 983 H, Total Protein 7.4 , Albumin 4.0, Globulin 3.4, Albumin/Globulin Ratio 1.2, Lipase 79 - RAD Interpretation Radiology Orders: 06/06/17 22:20 CERVICAL SPINE W/O CONTRAST [CT] Stat HEAD W/O CONTRAST [CT] Stat CHEST PORTABLE [RAD] Stat 06/06/17 22:21 ANKLE LEFT 3 VIEWS ROUTINE [RAD] Stat HAND LEFT 4TH DIGIT (FINGER) [RAD] Stat 06/06/17 22:22 DUPLEX LOWER EXTRM VEIN LEFT [US] Stat 06/06/17 23:12 LUMBAR SPINE W/O CONTRAST [CT] Stat 06/07/17 00:50 HAND LEFT 4TH DIGIT (FINGER) [RAD] Stat - Medication Orders Current Medication Orders: Discontinued Medications Cefazolin Sodium (Ancef 1gm In Ns) 1 gm in 100 mls @ 100 mls/hr IVPB STAT STA PRN Reason: Protocol Stop: 06/07/17 02:03 Last Admin: 06/07/17 01:26 Dose: 100 mls/hr eMAR Start Stop Document 06/07/17 01:26 AB (Rec: 06/07/17 01:27 AB [id number]) Intravenous Solution Start Date 06/07/17 Start Time 01:26 End Date 06/07/17 End time 02:26 Total Infusion Time 60 Lidocaine HCl (Lidocaine 2% 20ml Vial) 3 ml IJ ONCE STA Stop: 06/07/17 00:15 - PA / SLOT AMBASSADOR / Resident Statement [facility] has reviewed & agrees with the documentation as recorded. [facility] has examined the patient and agrees with the treatment plan. <Rosendo Marie - Last Filed: 06/06/17 23:36> Disposition/Present on Arrival <Rosendo Marie - Last Filed: 06/06/17 23:36> - Present on Arrival Any Indicators Present on Arrival: No History of DVT/PE: No History of Uncontrolled Diabetes: No Urinary Catheter: No History of Decub. Ulcer: No History Surgical Site Infection Following: None - Disposition Have Diagnosis and Disposition been Completed?: Yes Disposition Time: 03:24 Patient Plan: Admission <Aida Rodriguez - Last Filed: 06/07/17 03:25> - Disposition Diagnosis: Head injury, Open finger dislocation, Finger fracture, Multiple falls, Elevated brain natriuretic peptide (BNP) level Disposition: HOSPITALIZED Condition: FAIR Forms: [employer] (Uzbek)
[2017-06-06 23:16] LABS: TROPONIN I 0.02 ng/mL
[2017-06-06 23:21] LABS: INR 1.08 (0.93-1.08); PARTIAL THROMBOPLASTIN TIME 27.4 Seconds (25.1-36.5)
[2017-06-07] MEDS ORDERED: Lidocaine 2% Inj (20ml) IJ STA (00:14)
--- NOTE | 2017-06-07 00:30 | CT ---
EXAM: CT Head Without Intravenous Contrast CLINICAL HISTORY: 76 years old, male; Injury or trauma; Fall; Initial encounter; Concussion / head injury; Consciousness not specified; Injury date: 06-06-17; Additional info: Frequent falls/ head injury TECHNIQUE: Axial computed tomography images of the head/brain without intravenous contrast. All CT scans at this facility use one or more dose reduction techniques, viz.: automated exposure control; ma/kV adjustment per patient size (including targeted exams where dose is matched to indication; i.e. head); or iterative reconstruction technique. COMPARISON: CT - HEAD W/O CONTRAST 2017-05-04 19:01 FINDINGS: Brain: Atrophy. Bilateral white matter changes. This is nonspecific and may include microangiopathic disease, small lacunae of indeterminate chronicity, chronic infarcts and/or encephalomalacia. Old bilateral lacunae. Vascular calcification. No hemorrhage. No edema. Ventricles: Ventriculomegaly again noted. Bones: Skull is intact. Sinuses: Mild paranasal sinus mucosal thickening. Mastoid air cells: No mastoid effusion. IMPRESSION: No CT evidence of acute intracranial abnormality. Atrophy. Bilateral white matter changes. This is nonspecific and may include microangiopathic disease, small lacunae of indeterminate chronicity, chronic infarcts and/or encephalomalacia. Old bilateral lacunae. Vascular calcification. Ventriculomegaly again noted. Normal pressure hydrocephalus cannot be excluded.
--- NOTE | 2017-06-07 00:33 | CT ---
EXAM: CT Cervical Spine Without Intravenous Contrast CLINICAL HISTORY: 76 years old, male; Injury or trauma; Fall; Initial encounter; Concussion /head injury; Injury date: 06-06-17 TECHNIQUE: Axial computed tomography images of the cervical spine without intravenous contrast. All CT scans at this facility use one or more dose reduction techniques, viz.: automated exposure control; ma/kV adjustment per patient size (including targeted exams where dose is matched to indication; i.e. head); or iterative reconstruction technique. Coronal and sagittal reformatted images were created and reviewed. COMPARISON: CR - CERVICAL SPINE >18YR W/OBLIQUE 2016-05-03 10:57 FINDINGS: Vertebrae/discs: No acute fracture. No subluxation. Degenerative disc disease with loss in disc height and disc osteophyte formation. Facet arthropathy. Soft tissues: Carotid calcification. Lung apices: No acute abnormality as visualized. IMPRESSION: Negative for acute fracture. Details as above.
--- NOTE | 2017-06-07 00:38 | CT ---
EXAM: CT Lumbar Spine Without Intravenous Contrast CLINICAL HISTORY: 76 years old, male; Injury or trauma; Fall; Initial encounter; Concussion /head injury; Injury date: 06-06-17; Additional info: Low back/buttock pain S/P fall TECHNIQUE: Axial computed tomography images of the lumbar spine without intravenous contrast. All CT scans at this facility use one or more dose reduction techniques, viz.: automated exposure control; ma/kV adjustment per patient size (including targeted exams where dose is matched to indication; i.e. head); or iterative reconstruction technique. Coronal and sagittal reformatted images were created and reviewed. COMPARISON: No relevant prior studies available. FINDINGS: Vertebrae/discs: No acute fracture. No subluxation. Levoscoliosis. Multilevel degenerative changes. Degenerative disc disease. Posterior disc bulging, most notable at L4-L5. Disc osteophyte formation. Facet arthropathy. Soft tissues: Extensive vascular calcification. Diverticulosis. IMPRESSION: Negative for acute fracture. Details as above. Correlate clinically. Followup as warranted.
[2017-06-07] MEDS ORDERED: ceFAZolin 1 gm in NS 1 GM/100 ML BAG IVPB STA (01:04)
--- NOTE | 2017-06-07 03:56 | CP.PCM.HP ---
History of Present Illness - History of Present Illness History of Present Illness: Rebekah Sifuentes PGY1 - Internal Medicine H&P CC: Falls HPI: 76 yo M with PMH of HTN, CAD, HI s/p stents (5 total since 2000, last cath 01/2017 without any new stent placement), CHF (LVEF 30-40%), Parkinson disease, and depression presents to the ER complaining of frequent falls, including one today with resultant head abrasion and left hand trauma. Patient reports poor baseline gait stability, but that he has been falling more frequently over the past 2-3 weeks. He always falls backwards, though he walks with a walker, so he is only ever unsupported from behind. He denies syncope, dizziness, lightheadedness; reports that he falls because he loses his balance while turning/walking, and is unable to catch his step. He is also complaining of urinary incontinence, mostly 2/2 urge to go but states that he cannot make it to the bathroom in time. He also admits to occasional confusion, and visual hallucinations, where he occasionally sees an ant crawling on him. He also admits to shortness of breath, upon rising from seated to standing position. He denies any chest pain, palpitations, cough, fever, chills, nausea, vomiting, diarrhea, constipation, abdominal pain, focal weakness/numbness, parasthesias, vision changes, hearing loss, mood changes, SI/HI. All other 12-point ROS negative. PMH: As above PSH: Cardiac cath, cardiac stenting, Lithotripsy for renal stone FHx: denies, HTN in remote cousins only SHx: denies tobacco, alcohol, or illicits/IVDA All: NKDA PMD: Dr. Severino Neuro: Dr. Hernandez Cardio: Dr. Coppola Present on Admission - Present on Admission Any Indicators Present on Admission: No Past Patient History - Infectious Disease Hx of Infectious Diseases: None - Tetanus Immunizations Tetanus Immunization: Up to Date - Past Social History Smoking Status: Former Smoker - CARDIAC Hx Hypertension: Yes Hx Pacemaker: No - PULMONARY Hx Pneumonia: Yes - NEUROLOGICAL Hx Paralysis: No Hx Parkinson's Disease: Yes - HEENT Other/Comment: WEARS RX GLASSES - RENAL Hx Kidney Stones: Yes (LITHOTRYPSY/PASSED IT) - ENDOCRINE/METABOLIC Hx Endocrine Disorders: No - HEMATOLOGICAL/ONCOLOGICAL Hx Blood Transfusions: Yes (MANY YRS AGO) Hx Blood Transfusion Reaction: No - INTEGUMENTARY Hx Dermatological Problems: No - MUSCULOSKELETAL/RHEUMATOLOGICAL Hx Musculoskeletal Disorders: No - GASTROINTESTINAL Hx Gastrointestinal Disorders: Yes (GI bleed) - GENITOURINARY/GYNECOLOGICAL Hx Prostate Problems: Yes (BPH) - PSYCHIATRIC Hx Emotional Abuse: No Hx Physical Abuse: No Hx Substance Use: No - SURGICAL HISTORY Hx Cardiac Catheterization: Yes Hx Coronary Stent: Yes (x5) Other/Comment: excision benign forehead lesiion - ANESTHESIA Hx Anesthesia: No Hx Anesthesia Reactions: No Hx Malignant Hyperthermia: No Meds Allergies/Adverse Reactions: Allergies Allergy/AdvReac Type Severity Reaction Status Date / Time No Known Allergies Allergy Verified 06/06/17 22:14 Physical Exam - Constitutional Appears: Non-toxic, No Acute Distress - Head Exam Head Exam: ATRAUMATIC, NORMOCEPHALIC - Eye Exam Eye Exam: EOMI, Normal appearance, PERRL - ENT Exam ENT Exam: Mucous Membranes Moist - Neck Exam Neck exam: Positive for: Normal Inspection - Respiratory Exam Respiratory Exam: Clear to Auscultation Bilateral, NORMAL BREATHING PATTERN. absent: Rales, Rhonchi, Wheezes - Cardiovascular Exam Cardiovascular Exam: RRR, +S1, +S2. absent: Bradycardia, Tachycardia, Diastolic murmur, Systolic Murmur - GI/Abdominal Exam GI & Abdominal Exam: Normal Bowel Sounds, Soft. absent: Tenderness - Extremities Exam Extremities exam: Positive for: normal capillary refill, pedal edema (1-2+ pretibial pitting edema to knees bilaterally. L ankle grossly swollen compared to right.), pedal pulses present. Negative for: calf tenderness, tenderness - Neurological Exam Neurological exam: Alert, CN II-XII Intact, Oriented x3, Reflexes Normal Additional comments: Gait not assessed - Expanded Neurological Exam Expanded Neurological exam: Tremor (slight resting tremor of all four extremities) Neuro motor strength exam: Left Upper Extremity: 5, Right Upper Extremity: 5, Left Lower Extremity: 5, Right Lower Extremity: 5 - Psychiatric Exam Psychiatric exam: Normal Affect, Normal Mood - Skin Skin Exam: Dry, Intact, Normal Color Results - Vital Signs Recent Vital Signs: Last Vital Signs Temp 97.4 F L 06/06/17 22:13 Pulse 70 06/06/17 22:13 Resp 16 06/06/17 22:13 BP 180/77 H 06/06/17 22:13 Pulse Ox 99 06/06/17 22:13 - Labs Result Diagrams: 06/06/17 22:04 06/06/17 22:04 Assessment & Plan - Assessment and Plan (Free Text) Assessment: 76 yo M with PMH of HTN, CAD, HI s/p stents (5 total since 2000, last cath 2016 without any new stent placement), CHF (LVEF 30-40%), Parkinson disease, and depression presents to the ER complaining of frequent falls, including one today with resultant head abrasion and left hand trauma. Plan Frequent Falls - Patient reports worsening of his baseline ataxia for the past 2-3 weeks, as well as increased episodes of urinary incontinence (associated with frequency) and confusion; w/o focal neurological signs or symptoms - Likely 2/2 advanced Parkinson disease vs NPH vs UTI vs CT occult CVA - CT head in ER show no CT evidence of acute intracranial abnormality; significant for bilateral nonspecific white matter changes, and stable ventriculomegaly, cannot rule out NPH - Ordered PT evaluation - CT C-spine, L-spine, L hand, and L ankle negative for acute fractures; CXR negative - Requested neuro consult; patient sees Dr. Hernandez on outpatient basis, has appointment scheduled in 2 weeks Urinary frequency and incontinence - Patient reports urinary frequency and urgency, with associated incontinence when he cannot make it to the bathroom in time; denies dysuria or hematuria - Likely 2/2 UTI vs urge/mixed incontinence vs NPH - UA and UCx ordered; not yet collected h/o Parkinson disease - Resume home medications - High fall risk - Neuro on consult; appreciate recs CHF - Patient has history of CHF, LVEF 30-40% on cardiac cath 01/2017 - BNP elevated on admission, with mild peripheral edema, without signs of pulmonary edema - BNP elevation likely 2/2 uncontrolled HTN; patient appears clinically mildly dehydrated - Patient was recently taken off of CHRIS and BB; resume BB as below - Resume home amiodarone - Continue to monitor h/o CAD - Patient last had cardiac cath 01/2017 which showed moderate multivessel disease ; no intervention done at that time - Resume home ASA, Plavix - First trop negative in ER, though elevated BNP; repeat troponins ordered HTN - Patient off antihypertensives at home (recently discontinued metoprolol and lisinopril) - BP markedly elevated in the ER - Start metoprolol 25mg PO BID - Start Hydralazine 10mg IVP Q6h PRN for SBP >180 h/o Depression - Patient currently denies SI/HI or mood changes - Resume home lexapro GI/DVT Ppx - Protonix and Heparin Patient seen, discussed, and reviewed with attending
[2017-06-07 04:29] LABS: PHOSPHOROUS 2.7 mg/dL (2.5-4.5)
[2017-06-07 04:42] LABS: TROPONIN I 0.02 ng/mL
[2017-06-07 05:15] VITALS: RESP 20
[2017-06-07] MEDS: Pantoprazole 40 mg EC Tab PO SCH (06:05)
[2017-06-07] MEDS: Carbidopa/Levodopa 25/250 PO SCH ×3 (09:59→17:04)
[2017-06-07] MEDS: Aspirin 325 mg EC Tablets PO SCH (09:59)
[2017-06-07] MEDS ORDERED: SIMVASTATIN PO SCH (10:00)
[2017-06-07] MEDS ORDERED: EZETIMIBE PO SCH (10:00)
--- NOTE | 2017-06-07 10:20 | US ---
PROCEDURE: Left lower extremity venous US HISTORY: Leg pain and swelling. Evaluate for DVT. PHYSICIAN(S): Marcelino Zarate MD. TECHNIQUE: Duplex sonography and color-flow Doppler with graded compression were used to evaluate the deep venous system of the left lower extremity. FINDINGS: The visualized deep venous system of the left lower extremity is sonographically normal and compressible. Normal wave forms and augmentation are seen. There is no sonographic evidence for deep venous thrombosis in the visualized segments of the left lower extremity. IMPRESSION: 1. No sonographic evidence for deep venous thrombosis in the visualized segments of the left lower extremity.
--- NOTE | 2017-06-07 10:32 | CARD ---
APPROVED REPORT EKG Measurement Heart [id number] <Conclusion> RSR LVH LAD. NSSTW changes and Prolonged QTc are more pronounced c/w ECG 05/04/17
[2017-06-07] MEDS: Rotigotine [Neupro] 1 PATCH TD SCH (15:43)
--- NOTE | 2017-06-07 16:44 | RAD ---
HISTORY: chest pain COMPARISON: 05/04/2017 FINDINGS: LUNGS: No active pulmonary disease. PLEURA: No significant pleural effusion identified, no pneumothorax apparent. CARDIOVASCULAR: Normal. OSSEOUS STRUCTURES: No significant abnormalities. VISUALIZED UPPER ABDOMEN: Normal. OTHER FINDINGS: None. IMPRESSION: No active disease.
--- NOTE | 2017-06-07 16:44 | RAD ---
PROCEDURE: Left Ankle Radiographs. HISTORY: fall, ankle swelling COMPARISON: None FINDINGS: BONES: Normal. No fracture. JOINTS: Normal. No osteoarthritis. Ankle mortise maintained. Talar dome intact SOFT TISSUES: Lateral soft tissue swelling OTHER FINDINGS: None. IMPRESSION: Lateral soft tissue swelling. No fracture.
--- NOTE | 2017-06-07 16:46 | RAD ---
PROCEDURE: Left ring finger radiographs. HISTORY: fall, laceration, finger pain COMPARISON: None. TECHNIQUE: AP radiograph of the left hand, as well as spot oblique and lateral images of left ring finger were obtained. FINDINGS: LEFT RING FINGER: Dorsal dislocation at 4th DIP. No fracture identified. Remainder of the left hand (as seen on the AP view) is grossly unremarkable. JOINTS: As above. Otherwise unremarkable. SOFT TISSUES: Normal. OTHER FINDINGS: None. IMPRESSION: Dorsal dislocation at 4th PIP.
--- NOTE | 2017-06-07 17:03 | RAD ---
PROCEDURE: Left ring finger radiographs. HISTORY: s/p reduction COMPARISON: 06/07/2017 at 12:29 a.m. TECHNIQUE: AP radiograph of the left hand, as well as spot oblique and lateral images of left ring finger were obtained. FINDINGS: LEFT RING FINGER: Status post close reduction dorsal dislocation at 4th DIP. Tiny avulsion fracture at the palmar base of the 4th distal phalanx. No other fracture identified. Remainder of the left hand (as seen on the AP view) is grossly unremarkable. JOINTS: As above SOFT TISSUES: Normal. OTHER FINDINGS: None. IMPRESSION: Close reduction 4th PIP dislocation. Tiny avulsion fracture palmar base of 4th distal phalanx.
[2017-06-07 22:12] LABS: URINE BILIRUBIN NEGATIVE (NEGATIVE); URINE BLOOD NEGATIVE (NEGATIVE); URINE GLUCOSE (UA) NEGATIVE (NEGATIVE); URINE KETONE TRACE mg/dL (NEGATIVE); URINE LEUKOCYTE ESTERASE NEGATIVE Leu/uL (NEGATIVE); URINE PROTEIN NEGATIVE mg/dL (<30 mg/dL); URINE UROBILINOGEN 0.2 E.U./dL (<1 E.U./dL)
[2017-06-07 22:13] LABS: URINE APPEARANCE CLEAR (CLEAR); URINE COLOR YELLOW (YELLOW)
--- NOTE | 2017-06-08 04:26 | CON ---
DATE: 06/07/2017 HISTORY OF PRESENT ILLNESS: This is a 76-year-old male with a past medical history of Parkinson's and came here following a fall at home. The patient fell three to four times yesterday and once today, fell backward. I was called to evaluate the patient. Denies any dizziness or weakness. HOME MEDICATIONS: Amantadine, folic acid, and Neupro patch. REVIEW OF SYSTEMS: Ten-point review of systems was negative. PHYSICAL EXAMINATION: HEENT: Normocephalic, atraumatic. VITAL SIGNS: Blood pressure 180/77. NEURO: Awake, oriented to self and place. Cranial nerves II through XII were tested. Pupils reactive. EOM intact. Visual field full. No facial asymmetry. Tongue midline. Motor examination; spontaneous movement of the extremities noted. Deep tendon reflexes 1+, both plantars are downgoing. Sensory; appears intact. The patient is sitting comfortably on the chair. I think the patient goes to Dr. Hernandez for his Parkinson's treatment. CAT scan of the head was done, which reported atrophy and no hemorrhage. LABORATORY DATA: WBC 6.3, hemoglobin 11.8, hematocrit 36.2, platelets 194, sodium 146, potassium 4, chloride 111, CO2 28, glucose 107, BUN 25, creatinine 1.2. IMPRESSION: Frequent falls, Parkinson's disease, and dementia. Workup in progress. PLAN: Continue present management. We will follow up. Delonte Juarez MD
[2017-06-08] MEDS: Pantoprazole 40 mg EC Tab PO SCH (06:31)
[2017-06-08 07:20] LABS: BASO # 0.03 K/mm3 (0.0-2.0); BASO % 0.5 % (0.0-3.0); EOS # 0.2 (0.0-0.7); EOS % 3.1 % (1.5-5.0); GRAN # 3.8 (1.4-6.5); GRAN % 66.1 % (50.0-68.0); HEMATOCRIT 32.9 % (42.0-52.0); LYMPH # 1.3 (1.2-3.4); LYMPH % 22.1 % (22.0-35.0); MEAN CELL VOLUME 101.5 fl (80.0-105.0); MEAN CORPUSCULAR HEMOGLOBIN 33.3 pg (25.0-35.0); MEAN CORPUSCULAR HGB CONC 32.8 g/dl (31.0-37.0); MONO # 0.5 (0.1-0.6); MONO % 8.2 % (1.0-6.0); RED CELL DISTRIBUTION WIDTH 13.7 % (11.5-14.5); WHITE BLOOD COUNT 5.8 10^3/ul (4.5-11.0)
[2017-06-08 07:50] LABS: ALB/GLOB RATIO 1.1 (1.1-1.8); ALKALINE PHOSPHATASE 74 U/L (38-126); ALT/SGPT 30 U/L (7-56); AST/SGOT 31 U/L (17-59); BILIRUBIN,TOTAL 0.8 mg/dL (0.2-1.3); BLOOD UREA NITROGEN 20 mg/dL (7-21); CALCIUM 8.3 mg/dL (8.4-10.5); CARBON DIOXIDE 26 mmol/L (21-33); CHLORIDE 107 mmol/L (98-107); GFR AFRICAN-AMERICAN > 60; GLUCOSE,RANDOM 83 mg/dL (70-110); POTASSIUM 3.4 mmol/L (3.6-5.0); SODIUM 140 mmol/L (132-148); TOTAL PROTEIN 6.4 g/dL (5.8-8.3)
[2017-06-08] MEDS ORDERED: Potassium Chloride 20 mEq ER Tab PO STA (08:51)
[2017-06-08] MEDS: Aspirin 325 mg EC Tablets PO SCH (09:26)
[2017-06-08] MEDS: Rotigotine [Neupro] 1 PATCH TD SCH (09:26)
[2017-06-08] MEDS: Carbidopa/Levodopa 25/250 PO SCH ×3 (09:26→17:28)
[2017-06-08] MEDS ORDERED: Magnesium Citrate Oral SOL (300 ml) PO ONE (10:39)
--- NOTE | 2017-06-08 14:50 | CP.PCM.PN ---
<Geovany Roberson - Last Filed: 06/08/17 14:47> Subjective - Date & Time of Evaluation Date of Evaluation: 06/08/17 Time of Evaluation: 14:47 - Subjective Subjective: Medicine Progress Note Pt seen and examined at bedside. No acute overnight events. Pt offers no complaints. He states he is OOB to bathroom. Denies BM for last 6 days. Pt denied CP, SOB, nausea, vomiting, abdominal pain, fever, chills, JOSE, or dizziness. Objective - Vital Signs/Intake and Output Vital Signs (last 24 hours): Temp Pulse Resp BP Pulse Ox 98.2 F 60 20 116/61 95 06/08/17 07:25 06/08/17 09:27 06/08/17 07:25 06/08/17 09:27 06/08/17 07:25 Intake and Output: 06/08/17 06/08/17 06:59 18:59 Intake Total 640 Balance 640 - Medications Medications: Current Medications Amantadine HCl (Amantadine 100 Mg Cap) 100 mg PO BID [facility] Last Admin: 06/08/17 09:26 Dose: 100 mg Amiodarone HCl (Cordarone) 200 mg PO DAILY [facility] Last Admin: 06/08/17 09:27 Dose: 200 mg Aspirin (Ecotrin) 325 mg PO DAILY [facility] Last Admin: 06/08/17 09:26 Dose: 325 mg Atorvastatin Calcium (Lipitor) 20 mg PO DAILY [facility] Last Admin: 06/08/17 09:27 Dose: 20 mg Carbidopa/Levodopa (Sinemet) 1 tab PO TID [facility] Last Admin: 06/08/17 13:56 Dose: 1 tab Clopidogrel Bisulfate (Plavix) 75 mg PO DAILY [facility] Last Admin: 06/08/17 09:27 Dose: 75 mg Docusate Sodium (Colace) 100 mg PO BID [facility] Last Admin: 06/08/17 09:27 Dose: 100 mg Ezetimibe (Zetia) 10 mg PO DAILY [facility] Last Admin: 06/08/17 09:26 Dose: 10 mg Escitalopram Oxalate (Lexapro) 10 mg PO DAILY [facility] Last Admin: 06/08/17 09:26 Dose: 10 mg Fludrocortisone Acetate (Florinef) 0.1 mg PO DAILY [facility] Last Admin: 06/08/17 09:27 Dose: 0.1 mg Folic Acid (Folic Acid) 1 mg PO DAILY [facility] Last Admin: 06/08/17 09:26 Dose: 1 mg Heparin Sodium (Porcine) (Heparin) 5,000 units SC Q8 [facility] PRN Reason: Protocol Last Admin: 06/08/17 13:56 Dose: 5,000 units Hydralazine HCl (Apresoline) 10 mg IVP Q6 PRN PRN Reason: SBP >180 Metoprolol Tartrate (Lopressor) 25 mg PO BRKDIN [facility] Last Admin: 06/08/17 08:27 Dose: 25 mg Entacapone [Comtan] (200 Mg) 200 mg PO TID [facility] Last Admin: 06/08/17 13:45 Dose: Not Given Rotigotine [Neupro] (1 Patch) 1 patch TD DAILY [facility] Last Admin: 06/08/17 09:26 Dose: Not Given Pantoprazole Sodium (Protonix Ec Tab) 40 mg PO 0600 [facility] Last Admin: 06/08/17 06:31 Dose: 40 mg Zaleplon (Sonata) 5 mg PO HS [facility] Last Admin: 06/07/17 21:40 Dose: 5 mg - Labs Labs: PT 11.8 SECONDS (9.4-12.5) 06/06/17 22:04 INR 1.08 (0.93-1.08) 06/06/17 22:04 APTT 27.4 Seconds (25.1-36.5) 06/06/17 22:04 - Constitutional Appears: No Acute Distress - Head Exam Head Exam: NORMAL INSPECTION - Eye Exam Eye Exam: Normal appearance - ENT Exam ENT Exam: Normal Exam - Respiratory Exam Respiratory Exam: Clear to Ausculation Bilateral. absent: Rales, Rhonchi, Wheezes - Cardiovascular Exam Cardiovascular Exam: RRR, +S1, +S2. absent: Gallop, Rubs, Murmur - GI/Abdominal Exam GI & Abdominal Exam: Soft. absent: Distended, Guarding, Tenderness, Rebound - Extremities Exam Additional comments: swelling left 4th digit - Back Exam Back Exam: NORMAL INSPECTION - Neurological Exam Neurological Exam: Alert, Awake, Oriented x3 - Psychiatric Exam Psychiatric exam: Normal Affect, Normal Mood - Skin Skin Exam: Dry, Intact, Normal Color, Warm Assessment and Plan - Assessment and Plan (Free Text) Assessment: 76 yo M with PMH of HTN, CAD, SC s/p stents (5 total since 2000, last cath 2016 without any new stent placement), CHF (LVEF 30-40%), Parkinson disease, and depression presents to the ER complaining of frequent falls, including one today with resultant head abrasion and left hand trauma. Plan: Frequent Falls - Likely 2/2 advanced Parkinson disease - CT head in ER show no CT evidence of acute intracranial abnormality; significant for bilateral nonspecific white matter changes, and stable ventriculomegaly, cannot rule out NPH - PT recommends TCU/HWS - CT C-spine, L-spine, and L ankle negative for acute fractures; CXR negative - Neuro consulted - TCU evaluation requested for further PT Left 4th distal phalanx avulsion fracture - Repeat L hand xray showed close reduction of 4th PIP and tiny avulsion fracture at base of distal 4th phalanx - Splint Urinary frequency and incontinence - UA negative - F/u culture h/o Parkinson disease - Resume home medications - High fall risk - Neuro on consult; appreciate recs CHF - Patient has history of CHF, LVEF 30-40% on cardiac cath 01/2017 - BNP elevated on admission, with mild peripheral edema, without signs of pulmonary edema - BNP elevation likely 2/2 uncontrolled HTN; patient appears clinically mildly dehydrated - Patient was recently taken off of CHRIS and BB; resume BB as below - Resume home amiodarone - Continue to monitor h/o CAD - Patient last had cardiac cath 01/2017 which showed moderate multivessel disease ; no intervention done at that time - Resume home ASA, Plavix - First trop negative in ER, though elevated BNP; repeat troponins ordered HTN - Patient off antihypertensives at home (recently discontinued metoprolol and lisinopril) - BP markedly elevated in the ER - Cont Metoprolol - Cont Hydralazine prn h/o Depression - Patient currently denies SI/HI or mood changes - Resume home lexapro GI/DVT Ppx - Protonix and Heparin Patient seen, discussed, and reviewed with attending Gurwinder Roberson, PGY1 <Patsy Araujo - Last Filed: 06/08/17 15:46> Objective - Vital Signs/Intake and Output Vital Signs (last 24 hours): Temp Pulse Resp BP Pulse Ox 98.2 F 60 20 116/61 95 06/08/17 07:25 06/08/17 09:27 06/08/17 07:25 06/08/17 09:27 06/08/17 07:25 Intake and Output: 06/08/17 06/08/17 06:59 18:59 Intake Total 1280 Balance 1280 - Medications Medications: Current Medications Amantadine HCl (Amantadine 100 Mg Cap) 100 mg PO BID [facility] Last Admin: 06/08/17 09:26 Dose: 100 mg Amiodarone HCl (Cordarone) 200 mg PO DAILY [facility] Last Admin: 06/08/17 09:27 Dose: 200 mg Aspirin (Ecotrin) 325 mg PO DAILY [facility] Last Admin: 06/08/17 09:26 Dose: 325 mg Atorvastatin Calcium (Lipitor) 20 mg PO DAILY [facility] Last Admin: 06/08/17 09:27 Dose: 20 mg Carbidopa/Levodopa (Sinemet) 1 tab PO TID [facility] Last Admin: 06/08/17 13:56 Dose: 1 tab Clopidogrel Bisulfate (Plavix) 75 mg PO DAILY [facility] Last Admin: 06/08/17 09:27 Dose: 75 mg Docusate Sodium (Colace) 100 mg PO BID [facility] Last Admin: 06/08/17 09:27 Dose: 100 mg Ezetimibe (Zetia) 10 mg PO DAILY [facility] Last Admin: 06/08/17 09:26 Dose: 10 mg Escitalopram Oxalate (Lexapro) 10 mg PO DAILY [facility] Last Admin: 06/08/17 09:26 Dose: 10 mg Fludrocortisone Acetate (Florinef) 0.1 mg PO DAILY [facility] Last Admin: 06/08/17 09:27 Dose: 0.1 mg Folic Acid (Folic Acid) 1 mg PO DAILY [facility] Last Admin: 06/08/17 09:26 Dose: 1 mg Heparin Sodium (Porcine) (Heparin) 5,000 units SC Q8 [facility] PRN Reason: Protocol Last Admin: 06/08/17 13:56 Dose: 5,000 units Hydralazine HCl (Apresoline) 10 mg IVP Q6 PRN PRN Reason: SBP >180 Metoprolol Tartrate (Lopressor) 25 mg PO BRKDIN [facility] Last Admin: 06/08/17 08:27 Dose: 25 mg Entacapone [Comtan] (200 Mg) 200 mg PO TID [facility] Last Admin: 06/08/17 13:45 Dose: Not Given Rotigotine [Neupro] (1 Patch) 1 patch TD DAILY [facility] Last Admin: 06/08/17 09:26 Dose: Not Given Pantoprazole Sodium (Protonix Ec Tab) 40 mg PO 0600 [facility] Last Admin: 06/08/17 06:31 Dose: 40 mg Zaleplon (Sonata) 5 mg PO HS [facility] Last Admin: 06/07/17 21:40 Dose: 5 mg - Labs Labs: PT 11.8 SECONDS (9.4-12.5) 06/06/17 22:04 INR 1.08 (0.93-1.08) 06/06/17 22:04 APTT 27.4 Seconds (25.1-36.5) 06/06/17 22:04 Attending/Attestation - Attestation I have personally seen and examined this patient.: Yes I have fully participated in the care of the patient.: Yes I have reviewed all pertinent clinical information, including history, physical exam and plan: Yes Notes (Text): 06/08/17 15:42 attending note; Patient seen and examined With resident. patient is a 76-year-old male past medical history of hypertension, coronary artery disease,, SC s/p stents (5 total since 2000, last cath 01/2017 without any new stent placement), CHF (LVEF 30-40%), Parkinson disease, and depression presents to the ER complaining of frequent falls. patient has Parkinson's disease with gait instability. patient had recent fall in April and admitted [facility]. Currently with recurrent falls. PT evaluation appreciated. TCU recommended. We'll follow up with keycase assembler for discharge planning. Hypertension/CHF; continue home medication. Adjust blood pressure medications. Upon discharge the patient will follow-up with PMD Dr. Severino.
--- NOTE | 2017-06-08 19:21 | PN ---
NEUROLOGY FOLLOWUP DATE: 06/08/2017 SUBJECTIVE: The patient seen and examined at bedside. No acute events overnight. He states he is out of bed to the bathroom. No falls. He is on Sinemet one tab p.o. t.i.d. for underlying Parkinson's, aspirin and Plavix as stroke prevention as well as Lipitor. He is also on amantadine for his underlying Parkinson's as well. PAST MEDICAL HISTORY: Hypertension, CAD, [place], and status post stents since 2000, last cath on 02/07/2017 without any new in stent placements, CHF, left ventricle ejection fraction 30 to 40%, Parkinson's disease, and depression. ALLERGIES: NO KNOWN DRUG ALLERGIES. SOCIAL HISTORY: No illicit drug use, smoking, or EtOH abuse. MEDICATIONS: Reviewed by nurse reconciliation sheet. PHYSICAL EXAMINATION: VITAL SIGNS: Temperature of 97, pulse rate of 56, blood pressure 133/96, respiratory rate of 20, and oxygen saturation 98% on room air. GENERAL: The patient is sitting up in bed, in no acute distress. HEENT: Head is atraumatic and normocephalic. PERRLA. Extraocular muscles are intact. NECK: Supple. No JVD. No adenopathy noted. LUNGS: Clear to auscultation. No adventitious sounds. HEART: S1 and S2 normal rate and rhythm. No murmurs, rubs, or gallops. ABDOMEN: Soft, nontender, and nondistended. Bowel sounds are present. EXTREMITIES: No clubbing, No cyanosis. Peripheral pulses +2 bilaterally. NEUROLOGIC: The patient is alert and oriented to person, place, month, and year. Speech fluent without errors. Cranial II through XII intact, has a flat affect. Motor exam, increased tone throughout. There is mild cogwheel rigidity bilaterally. Mild resting tremor. Sensory exam: Light touch, pinprick, proprioception, and vibration intact. DTRs are 1+ throughout. Coordination: [id number] intact. Gait is deferred for now. LABORATORY DATA: Sodium is 140, potassium is 3.4, chloride 107, carbon dioxide of 26, BUN of 20, creatinine of 1, and random glucose of 83. ASSESSMENT AND PLAN: 1. This is a 76-year-old male with past medical history of coronary artery disease, myocardial infarction, status post stents, congestive heart failure with left ventricle ejection fraction 30 to 40%, Parkinson's disease, depression, came to ER with frequent falls and which resulted in head abrasion and left hand trauma. His frequent falls likely secondary to diffuse Parkinson's disease. CT cervical spine and lumbar spine and negative for any fractures. X-ray is negative. At this time, we will recommend to continue with Physical Therapy and Occupational Therapy eval and possibly subacute rehab. Continue with Sinemet 25/100 one tab p.o. t.i.d. in addition to amantadine 100 mg p.o. b.i.d. for his underlying Parkinsonism and can follow with his Neurologist Dr. Hernandez as an outpatient. 2. Aspirin 325, Plavix 75, and Lipitor 20 mg for his stroke prevention. 3. Continue with Lexapro 10 mg for underlying depression. 4. Followup with Cardiology in regards to congestive heart failure. At this time, no further Neurological recommendation is needed. We will sign off. Followup as an outpatient. Kannan Juarez MD
[2017-06-09] MEDS: Pantoprazole 40 mg EC Tab PO SCH (05:56)
[2017-06-09 07:32] LABS: BASO # 0.03 K/mm3 (0.0-2.0); BASO % 0.5 % (0.0-3.0); EOS # 0.2 (0.0-0.7); EOS % 2.8 % (1.5-5.0); GRAN # 4.12 (1.4-6.5); HEMATOCRIT 34.2 % (42.0-52.0); LYMPH # 1.3 (1.2-3.4); LYMPH % 20.7 % (22.0-35.0); MEAN CELL VOLUME 100.9 fl (80.0-105.0); MEAN CORPUSCULAR HEMOGLOBIN 33.3 pg (25.0-35.0); MEAN PLATELET VOLUME 10.5 fl (7.0-11.0); MONO # 0.6 (0.1-0.6); RED CELL DISTRIBUTION WIDTH 13.6 % (11.5-14.5); WHITE BLOOD COUNT 6.1 10^3/ul (4.5-11.0)
[2017-06-09 07:42] LABS: ALB/GLOB RATIO 1.1 (1.1-1.8); BILIRUBIN,TOTAL 0.7 mg/dL (0.2-1.3); CALCIUM 8.6 mg/dL (8.4-10.5); GFR AFRICAN-AMERICAN > 60; GLUCOSE,RANDOM 78 mg/dL (70-110); TOTAL PROTEIN 6.9 g/dL (5.8-8.3)
[2017-06-09 07:56] LABS: ALKALINE PHOSPHATASE 77 U/L (38-126); ALT/SGPT 35 U/L (7-56); AST/SGOT 37 U/L (17-59); BLOOD UREA NITROGEN 19 mg/dL (7-21); CARBON DIOXIDE 29 mmol/L (21-33); CHLORIDE 107 mmol/L (98-107); POTASSIUM 3.7 mmol/L (3.6-5.0); SODIUM 141 mmol/L (132-148)
[2017-06-09] MEDS: Aspirin 325 mg EC Tablets PO SCH (10:56)
[2017-06-09] MEDS: Rotigotine [Neupro] 1 PATCH TD SCH (10:57)
[2017-06-09] MEDS: Carbidopa/Levodopa 25/250 PO SCH ×3 (10:57→18:28)
--- NOTE | 2017-06-09 16:57 | CP.PCM.PN ---
<Geovany Roberson - Last Filed: 06/09/17 16:50> Subjective - Date & Time of Evaluation Date of Evaluation: 06/09/17 Time of Evaluation: 16:50 - Subjective Subjective: Medicine Progress Note Pt seen and examined at bedside. No acute overnight events. Pt states that he has been passing gas, but still no BM. Pt denied CP, SOB, nausea, vomiting, abdominal pain, fever, chills, JOSE, or dizziness. Objective - Vital Signs/Intake and Output Vital Signs (last 24 hours): Temp Pulse Resp BP Pulse Ox 97.8 F 63 20 151/60 H 97 06/09/17 07:30 06/09/17 10:58 06/09/17 07:30 06/09/17 10:58 06/09/17 07:30 Intake and Output: 06/09/17 06/09/17 06:59 18:59 Intake Total 1080 Balance 1080 - Medications Medications: Current Medications Amantadine HCl (Amantadine 100 Mg Cap) 100 mg PO BID [facility] Last Admin: 06/09/17 10:56 Dose: 100 mg Amiodarone HCl (Cordarone) 200 mg PO DAILY [facility] Last Admin: 06/09/17 10:58 Dose: 200 mg Aspirin (Ecotrin) 325 mg PO DAILY [facility] Last Admin: 06/09/17 10:56 Dose: 325 mg Atorvastatin Calcium (Lipitor) 20 mg PO DAILY [facility] Last Admin: 06/09/17 10:56 Dose: 20 mg Carbidopa/Levodopa (Sinemet) 1 tab PO TID [facility] Last Admin: 06/09/17 14:55 Dose: 1 tab Clopidogrel Bisulfate (Plavix) 75 mg PO DAILY [facility] Last Admin: 06/09/17 10:56 Dose: 75 mg Docusate Sodium (Colace) 100 mg PO BID [facility] Last Admin: 06/09/17 10:56 Dose: 100 mg Ezetimibe (Zetia) 10 mg PO DAILY [facility] Last Admin: 06/09/17 10:56 Dose: 10 mg Escitalopram Oxalate (Lexapro) 10 mg PO DAILY [facility] Last Admin: 06/09/17 10:56 Dose: 10 mg Fludrocortisone Acetate (Florinef) 0.1 mg PO DAILY [facility] Last Admin: 06/09/17 10:56 Dose: 0.1 mg Folic Acid (Folic Acid) 1 mg PO DAILY [facility] Last Admin: 06/09/17 10:56 Dose: 1 mg Heparin Sodium (Porcine) (Heparin) 5,000 units SC Q8 [facility] PRN Reason: Protocol Last Admin: 06/09/17 14:54 Dose: 5,000 units Hydralazine HCl (Apresoline) 10 mg IVP Q6 PRN PRN Reason: SBP >180 Metoprolol Tartrate (Lopressor) 25 mg PO BRKDIN [facility] Last Admin: 06/09/17 08:29 Dose: 25 mg Rotigotine [Neupro] (1 Patch (Homemed)) 1 patch TD DAILY [facility] Entacapone [Comtan] (200 Mg (Home Med)) 200 mg PO TID [facility] Pantoprazole Sodium (Protonix Ec Tab) 40 mg PO 0600 [facility] Last Admin: 06/09/17 05:56 Dose: 40 mg Zaleplon (Sonata) 5 mg PO HS [facility] Last Admin: 06/08/17 21:47 Dose: 5 mg - Labs Labs: 06/09/17 06:45 06/09/17 06:45 PT 11.8 SECONDS (9.4-12.5) 06/06/17 22:04 INR 1.08 (0.93-1.08) 06/06/17 22:04 APTT 27.4 Seconds (25.1-36.5) 06/06/17 22:04 Assessment and Plan - Assessment and Plan (Free Text) Assessment: 76 yo M with PMH of HTN, CAD, [place] s/p stents (5 total since 2000, last cath 2016 without any new stent placement), CHF (LVEF 30-40%), Parkinson disease, and depression admitted for evaluation and treatment for frequent falls and left finger fracture. Plan: 1. Frequent Falls - Likely 2/2 advanced Parkinson disease - CT head in ER show no CT evidence of acute intracranial abnormality; significant for bilateral nonspecific white matter changes, and stable ventriculomegaly, cannot rule out NPH - F/u MRI brain - CT C-spine, L-spine, and L ankle negative for acute fractures; CXR negative - Neuro consulted recommends PT/OT and [facility] - PT recommends TCU/HWS - Family requesting SABA closer to them, will f/u with social work 2. Left 4th distal phalanx avulsion fracture - Repeat L hand xray showed close reduction of 4th PIP and tiny avulsion fracture at base of distal 4th phalanx - Splint - Advised outpatient follow up with orthopedist 3. Urinary frequency and incontinence - UA negative - F/u culture 4. h/o Parkinson disease - Resume home medications - High fall risk - Neuro on consult; appreciate recs 5. CHF - Cardio consulted - Patient has history of CHF, LVEF 30-40% on cardiac cath 01/2017 - BNP elevated on admission - Cont metoprolol, amiodarone - Continue to monitor 6. h/o CAD - Cardiac cath 01/2017 which showed moderate multivessel disease; no intervention done at that time - Cont ASA, Plavix - Trop negative x3 7. HTN - Cont Metoprolol - Cont Hydralazine prn 8. h/o Depression - Patient currently denies SI/HI or mood changes - Cont lexapro GI/DVT Ppx - Protonix - Heparin Patient seen, discussed, and reviewed with Dr. Richardson. Gurwinder Roberson, PGY1 <Deangelo Richardson - Last Filed: 06/09/17 17:10> Objective - Vital Signs/Intake and Output Vital Signs (last 24 hours): Temp Pulse Resp BP Pulse Ox 97.8 F 62 20 126/62 96 06/09/17 17:06 06/09/17 17:06 06/09/17 17:06 06/09/17 17:06 06/09/17 17:06 Intake and Output: 06/09/17 06/09/17 06:59 18:59 Intake Total 1080 Balance 1080 - Medications Medications: Current Medications Amantadine HCl (Amantadine 100 Mg Cap) 100 mg PO BID [facility] Last Admin: 06/09/17 10:56 Dose: 100 mg Amiodarone HCl (Cordarone) 200 mg PO DAILY [facility] Last Admin: 06/09/17 10:58 Dose: 200 mg Aspirin (Ecotrin) 325 mg PO DAILY [facility] Last Admin: 06/09/17 10:56 Dose: 325 mg Atorvastatin Calcium (Lipitor) 20 mg PO DAILY [facility] Last Admin: 06/09/17 10:56 Dose: 20 mg Carbidopa/Levodopa (Sinemet) 1 tab PO TID [facility] Last Admin: 06/09/17 14:55 Dose: 1 tab Clopidogrel Bisulfate (Plavix) 75 mg PO DAILY [facility] Last Admin: 06/09/17 10:56 Dose: 75 mg Docusate Sodium (Colace) 100 mg PO BID [facility] Last Admin: 06/09/17 10:56 Dose: 100 mg Ezetimibe (Zetia) 10 mg PO DAILY [facility] Last Admin: 06/09/17 10:56 Dose: 10 mg Escitalopram Oxalate (Lexapro) 10 mg PO DAILY [facility] Last Admin: 06/09/17 10:56 Dose: 10 mg Fludrocortisone Acetate (Florinef) 0.1 mg PO DAILY [facility] Last Admin: 06/09/17 10:56 Dose: 0.1 mg Folic Acid (Folic Acid) 1 mg PO DAILY [facility] Last Admin: 06/09/17 10:56 Dose: 1 mg Heparin Sodium (Porcine) (Heparin) 5,000 units SC Q8 [facility] PRN Reason: Protocol Last Admin: 06/09/17 14:54 Dose: 5,000 units Hydralazine HCl (Apresoline) 10 mg IVP Q6 PRN PRN Reason: SBP >180 Metoprolol Tartrate (Lopressor) 25 mg PO BRKDIN [facility] Last Admin: 06/09/17 08:29 Dose: 25 mg Rotigotine [Neupro] (1 Patch ([facility]emed)) 1 patch TD DAILY [facility] Entacapone [Comtan] (200 Mg (Home Med)) 200 mg PO TID [facility] Pantoprazole Sodium (Protonix Ec Tab) 40 mg PO 0600 [facility] Last Admin: 06/09/17 05:56 Dose: 40 mg Zaleplon (Sonata) 5 mg PO HS [facility] Last Admin: 06/08/17 21:47 Dose: 5 mg - Labs Labs: 06/09/17 06:45 06/09/17 06:45 PT 11.8 SECONDS (9.4-12.5) 06/06/17 22:04 INR 1.08 (0.93-1.08) 06/06/17 22:04 APTT 27.4 Seconds (25.1-36.5) 06/06/17 22:04 Attending/Attestation - Attestation I have personally seen and examined this patient.: Yes I have fully participated in the care of the patient.: Yes I have reviewed all pertinent clinical information, including history, physical exam and plan: Yes Notes (Text): 76 yo M with PMH of HTN, CAD, DC s/p stents (5 total since 2000, last cath 2016 without any new stent placement), CHF (LVEF 30-40%), Parkinson disease, and depression admitted for evaluation and treatment for frequent falls and left finger fracture. Plan: 1. Frequent Falls - Likely 2/2 advanced Parkinson disease 2. Left 4th distal phalanx avulsion fracture - Repeat L hand xray showed close reduction of 4th PIP and tiny avulsion fracture at base of distal 4th phalanx - Splint - Advised outpatient follow up with orthopedist 3. Urinary frequency and incontinence - UA negative - F/u culture 4. h/o Parkinson disease ?conusion - Resume home medications - High fall risk - Neuro on consult; appreciate recs PLAN MRI 5. CHF chonic not acute systolic - Cardio consulted - Patient has history of CHF, LVEF 30-40% on cardiac cath 01/2017 - BNP elevated on admission - Cont metoprolol, amiodarone - Continue to monitor 6. h/o CAD - Cardiac cath 01/2017 which showed moderate multivessel disease; no intervention done at that time - Cont ASA, Plavix - Trop negative x3 7. HTN - Cont Metoprolol - Cont Hydralazine prn 8. h/o Depression - Patient currently denies SI/HI or mood changes - Cont lexapro
[2017-06-09] MEDS: ENTACAPONE 200 MG PO SCH (18:28)
[2017-06-10] MEDS: Pantoprazole 40 mg EC Tab PO SCH (05:44)
[2017-06-10 07:15] LABS: ALB/GLOB RATIO 1.1 (1.1-1.8); ALKALINE PHOSPHATASE 86 U/L (38-126); ALT/SGPT 29 U/L (7-56); AST/SGOT 33 U/L (17-59); BILIRUBIN,TOTAL 0.8 mg/dL (0.2-1.3); BLOOD UREA NITROGEN 21 mg/dL (7-21); CARBON DIOXIDE 27 mmol/L (21-33); CHLORIDE 108 mmol/L (98-107); GFR AFRICAN-AMERICAN > 60; GLUCOSE,RANDOM 78 mg/dL (70-110); POTASSIUM 4.4 mmol/L (3.6-5.0); SODIUM 142 mmol/L (132-148); TOTAL PROTEIN 6.7 g/dL (5.8-8.3)
[2017-06-10 07:23] LABS: BASO # 0.03 K/mm3 (0.0-2.0); BASO % 0.5 % (0.0-3.0); EOS # 0.1 (0.0-0.7); GRAN # 4.59 (1.4-6.5); GRAN % 71.8 % (50.0-68.0); HEMATOCRIT 34.7 % (42.0-52.0); LYMPH # 1.2 (1.2-3.4); LYMPH % 18.2 % (22.0-35.0); MEAN CELL VOLUME 100.3 fl (80.0-105.0); MEAN CORPUSCULAR HEMOGLOBIN 32.9 pg (25.0-35.0); MEAN CORPUSCULAR HGB CONC 32.9 g/dl (31.0-37.0); MEAN PLATELET VOLUME 10.2 fl (7.0-11.0); MONO # 0.5 (0.1-0.6); MONO % 7.5 % (1.0-6.0); RED CELL DISTRIBUTION WIDTH 13.6 % (11.5-14.5); WHITE BLOOD COUNT 6.4 10^3/ul (4.5-11.0)
[2017-06-10 08:52] VITALS: TEMP 98.2
[2017-06-10] MEDS: Carbidopa/Levodopa 25/250 PO SCH ×3 (09:44→17:31)
[2017-06-10] MEDS: Aspirin 325 mg EC Tablets PO SCH (09:44)
[2017-06-10] MEDS: ENTACAPONE 200 MG PO SCH ×3 (09:46→17:31)
[2017-06-10] MEDS: ROTIGOTINE TD SCH (09:46)
--- NOTE | 2017-06-10 11:52 | CP.PCM.PN ---
Subjective - Date & Time of Evaluation Date of Evaluation: 06/10/17 Time of Evaluation: 11:46 - Subjective Subjective: Medicine Progress Note Pt seen and examined at bedside. No acute overnight events. Pt will require 1 more midnight stay before transfer. Pt offers no complaints. Pt denies CP, SOB, nausea, vomiting, diarrhea, abdominal pain, fever, chills, JOSE, or dizziness. Objective - Vital Signs/Intake and Output Vital Signs (last 24 hours): Temp Pulse Resp BP Pulse Ox 98.2 F 62 20 148/72 95 06/10/17 07:30 06/10/17 09:45 06/10/17 07:30 06/10/17 09:45 06/10/17 07:30 Intake and Output: 06/10/17 06/10/17 06:59 18:59 Intake Total 240 Balance 240 - Medications Medications: Current Medications Amantadine HCl (Amantadine 100 Mg Cap) 100 mg PO BID [facility] Last Admin: 06/10/17 09:44 Dose: 100 mg Amiodarone HCl (Cordarone) 200 mg PO DAILY [facility] Last Admin: 06/10/17 09:45 Dose: 200 mg Aspirin (Ecotrin) 325 mg PO DAILY [facility] Last Admin: 06/10/17 09:44 Dose: 325 mg Atorvastatin Calcium (Lipitor) 20 mg PO DAILY [facility] Last Admin: 06/10/17 09:45 Dose: 20 mg Carbidopa/Levodopa (Sinemet) 1 tab PO TID [facility] Last Admin: 06/10/17 09:44 Dose: 1 tab Clopidogrel Bisulfate (Plavix) 75 mg PO DAILY [facility] Last Admin: 06/10/17 09:45 Dose: 75 mg Docusate Sodium (Colace) 100 mg PO BID [facility] Last Admin: 06/10/17 09:45 Dose: 100 mg Ezetimibe (Zetia) 10 mg PO DAILY [facility] Last Admin: 06/10/17 09:44 Dose: 10 mg Escitalopram Oxalate (Lexapro) 10 mg PO DAILY [facility] Last Admin: 06/10/17 09:45 Dose: 10 mg Fludrocortisone Acetate (Florinef) 0.1 mg PO DAILY [facility] Last Admin: 06/10/17 09:43 Dose: 0.1 mg Folic Acid (Folic Acid) 1 mg PO DAILY [facility] Last Admin: 06/10/17 09:44 Dose: 1 mg Heparin Sodium (Porcine) (Heparin) 5,000 units SC Q8 ROGELIO PRN Reason: Protocol Last Admin: 06/10/17 05:43 Dose: 5,000 units Hydralazine HCl (Apresoline) 10 mg IVP Q6 PRN PRN Reason: SBP >180 Metoprolol Tartrate (Lopressor) 25 mg PO BRKDIN [facility] Last Admin: 06/10/17 08:38 Dose: 25 mg Rotigotine [Neupro] (1 Patch (Homemed)) 1 patch TD DAILY [facility] Last Admin: 06/10/17 09:46 Dose: 1 patch Entacapone [Comtan] (200 Mg (Home Med)) 200 mg PO TID [facility] Last Admin: 06/10/17 09:46 Dose: 200 mg Pantoprazole Sodium (Protonix Ec Tab) 40 mg PO 0600 [facility] Last Admin: 06/10/17 05:44 Dose: 40 mg Zaleplon (Sonata) 5 mg PO HS [facility] Last Admin: 06/09/17 22:20 Dose: Not Given - Labs Labs: 06/10/17 06:30 06/10/17 06:30 PT 11.8 SECONDS (9.4-12.5) 06/06/17 22:04 INR 1.08 (0.93-1.08) 06/06/17 22:04 APTT 27.4 Seconds (25.1-36.5) 06/06/17 22:04 - Constitutional Appears: No Acute Distress - Head Exam Head Exam: NORMAL INSPECTION - Eye Exam Eye Exam: Normal appearance - ENT Exam ENT Exam: Normal Exam - Neck Exam Neck Exam: Normal Inspection - Respiratory Exam Respiratory Exam: Clear to Ausculation Bilateral. absent: Rales, Rhonchi, Wheezes - Cardiovascular Exam Cardiovascular Exam: RRR, +S1, +S2. absent: Gallop, Rubs, Murmur - GI/Abdominal Exam GI & Abdominal Exam: Soft. absent: Distended, Guarding, Tenderness, Rebound - Extremities Exam Extremities Exam: Normal Inspection - Back Exam Back Exam: NORMAL INSPECTION - Neurological Exam Neurological Exam: Alert, Awake, Oriented x3 - Psychiatric Exam Psychiatric exam: Normal Affect, Normal Mood - Skin Skin Exam: Dry, Intact, Normal Color, Warm Assessment and Plan - Assessment and Plan (Free Text) Assessment: 76 yo M with PMH of HTN, CAD, [place] s/p stents (5 total since 2000, last cath 2016 without any new stent placement), CHF (LVEF 30-40%), Parkinson disease, and depression admitted for evaluation and treatment for frequent falls and left finger fracture. Plan: 1. Frequent Falls - Likely 2/2 shuffling gait from advanced Parkinson disease - CT head in ER show no CT evidence of acute intracranial abnormality; significant for bilateral nonspecific white matter changes, and stable ventriculomegaly, cannot rule out NPH - F/u MRI brain - CT C-spine, L-spine, and L ankle negative for acute fractures; CXR negative - Neuro consulted recommends PT/OT and SABA - PT recommends SABA - Family requesting SABA closer to them, f/u social work - Pt needs one more midnight stay before dc to SABA 2. Left 4th distal phalanx avulsion fracture - Repeat L hand xray showed close reduction of 4th PIP and tiny avulsion fracture at base of distal 4th phalanx - Splint - Advised outpatient follow up with orthopedist 3. Urinary frequency and incontinence - UA negative - Cultures negative 4. h/o Parkinson disease - Cont home medications - High fall risk - Neuro consulted - F/u MRI brain 5. Chronic systolic CHF - Cardio consulted - Patient has history of CHF, LVEF 30-40% on cardiac cath 01/2017 - BNP 983 on admission - Cont metoprolol, amiodarone - Continue to monitor 6. h/o CAD - Cardiac cath 01/2017 which showed moderate multivessel disease; no intervention done at that time - Cont ASA, Plavix - Trop negative x3 7. HTN - Cont Metoprolol - Cont Hydralazine prn 8. h/o Depression - Cont lexapro GI/DVT Ppx - Protonix - Heparin Patient seen, discussed, and reviewed with Dr. Richardson. Gurwinder Roberson, PGY1
[2017-06-10] MEDS ORDERED: Gadodiamide 287 MG/ML VIAL (15ML) IV ONE (16:28)
--- NOTE | 2017-06-10 18:00 | MRI ---
PROCEDURE: MRI of the brain dated 06/10/2017. HISTORY: Ventriculomegaly. AMS. Possible dementia. COMPARISON: None. TECHNIQUE: Multiplanar, multisequence MR images of the brain were obtained with and without intravenous contrast enhancement. 15 cc Omniscan contrast material injected for this procedure. Note that this examination is limited by motion artifact. FINDINGS: HEMORRHAGE: No acute parenchymal, subarachnoid or extra-axial hemorrhage. Evaluation for hemosiderin is quite limited the due to very significant motion artifact on the gradient echo weighted sequence. DWI: No obvious evidence of acute or early subacute infarcts seen on diffusion imaging. BRAIN PARENCHYMA: There are scattered chronic bilateral basal nuclei lacunar type infarcts with changes mild diffuse/confluent chronic periventricular white matter ischemic changes that extend peripherally into the deep and to a lesser degree subcortical white matter of both cerebral hemispheres. None of these changes exhibit restricted diffusion so far as can be seen on diffusion imaging. Note also made of what appears represent numerous dilated perivascular spaces both basal nuclei ; note that the such changes have been seen and described in cases of vascular dementia. Clinical correlation recommended. . No enhancing parenchymal nor extra-axial masses or collections are seen on this limited exam. Moderate to fairly significant central volume loss evidenced by disproportionate enlargement of the ventricles as compared sulci. ENHANCEMENT: No abnormal intracranial enhancement as above. . VENTRICLES: No obstructive hydrocephalus. CRANIUM: Calvarium appears grossly unremarkable though evaluation is also quite limited ORBITS: Orbits and contents the appear grossly unremarkable. PARANASAL SINUSES/MASTOIDS: Clear VASCULAR SYSTEM: The visualized major vascular flow voids appear patent so far as can be seen. OTHER FINDINGS: None . IMPRESSION: History limited study due to significant motion artifact. No definitive evidence of acute intracranial hemorrhage or infarct. No obvious enhancing lesions are identified Chronic appearing white matter and basal nuclei ischemic changes. Moderate to significant central volume loss. Note also made of what appears represent numerous dilated perivascular spaces both basal nuclei ; note that the such changes have been seen and described in cases of vascular dementia. Clinical correlation recommended. . This study should probably be repeated with proper sedation.
[2017-06-11] MEDS: Pantoprazole 40 mg EC Tab PO SCH (05:22)
--- NOTE | 2017-06-11 06:00 | CON ---
DATE: 06/10/2017 The patient is in room 562, bed 2. REASON FOR CONSULTATION: Coronary artery disease, history of stent insertion, history of ventricular tachycardia, wide-complex tachycardia, status post fall. HISTORY OF PRESENT ILLNESS: A 76-year-old male who has Parkinson disease, coronary artery disease, has had a stent insertion multiple times in LAD, circumflex, RCA, known case of hypertension and hyperlipidemia. He walks with a walker and he lost his balance and fell down. Denies chest pain, shortness of breath or palpitation associated with this episode. PAST MEDICAL HISTORY: Significant for gastrointestinal bleeding, coronary artery disease, status post multiple stents. The patient had cardiac catheterization in 05/2009 which showed patent stent in LAD, circumflex, and RCA. There was mild disease about 20% stenosis in LAD and left main had 20% and RCA had 20% narrowing, ejection fraction was 45% to 50%. EDP was in the range of 16 to 18. The patient also had echocardiogram on 09/25/2015 which showed normal size LV, concentric left ventricular hypertrophy, systolic function mildly impaired with ejection fraction of 45% to 50%, mild aortic regurgitation, moderate mitral regurgitation, [id number]-[id number] tricuspid regurgitation, RVSP of 37 mmHg. The patient had stress test on 12/23/2016 which showed partially reversible apical inferior, inferoseptal defect, suspicious for ischemia as compared with the study of 03/18/2015, defects appear slightly larger and partially reversible in the present study, LV ejection fraction of 39%. Following above abnormal stress test, the patient had cardiac catheterization on 01/21/2017 which showed moderate disease in LAD, circumflex, left main and RCA. All previous stents were patent. Urbt-bu-txltfnck degree LV ejection fraction of 35% to 40%. EDP in the range of 15 to 16 mmHg, and medical therapy was indicated, so the patient was continued on medical therapy. Diagnoses are status post fall due to loss of balance due to Parkinsonism; coronary artery disease; history of multiple stent insertion; left ventricular dysfunction; history of wide-complex tachycardia; history of gastrointestinal bleeding; hypertension; hyperlipidemia; depression. PHYSICAL EXAMINATION: VITAL SIGNS: Blood pressure 140/72, respirations 20, pulse 62, temperature 98.2. HEENT: Head is normocephalic. Eyes: Pupils normal, conjunctivae slightly pale. NECK: JVP low. Carotids equal. THORAX: AP diameter normal. LUNGS: Clear. CARDIOVASCULAR: S1, S2. ABDOMEN: Soft, no tenderness, no organomegaly. Bowel sounds normal. EXTREMITIES: No clubbing, no cyanosis. LABORATORY: WBC 6.4, hemoglobin 11.4, hematocrit 34.7, platelets 193. Sodium 142, potassium 4.4, BUN 21, creatinine 1.1. AST and ALT normal. Total protein 6.7. Albumin 3.6. Prothrombin time 11.8, INR 1.08. EKG showed regular sinus rhythm, LVH, nonspecific ST-T changes. Chest x-ray, no active disease. Her CAT scan showed no evidence of acute intracranial bleeding, atrophic bilateral white matter changes, old bilateral lacunae, vascular calcifications, normal pressure hydrocephalus cannot be excluded. Brain MRI today, no definite evidence of acute intracranial hemorrhage or infarct, chronic ischemic changes, [id number] central volume loss, some changes suggestive of vascular dementia. DIAGNOSES: Parkinson disease; unsteady balance, fall due to unsteady balance due to Parkinsonism; coronary artery disease, history of multiple stent insertion; hypertension; hyperlipidemia; depression; history of gastrointestinal bleeding in the past; history of wide-complex tachycardia. PLAN: The patient is on amantadine 100 mg b.i.d., amiodarone 200 mg daily, aspirin 325 daily, Comtan 200 mg p.o. t.i.d., Florinef 0.1 mg daily, folic acid 1 mg daily, Lexapro 10 mg p.o. daily, atorvastatin 20 mg daily, metoprolol 25 b.i.d., Plavix 75 daily, Protonix 40 daily, carbidopa/levodopa 25/250 one tablet p.o. t.i.d., Sonata 5 mg q.h.s., Zetia 10 mg p.o. daily. We will continue present therapy. Clinically, cardiac status stable and we will follow with you. Marva Coppola MD
[2017-06-11 07:11] LABS: ALB/GLOB RATIO 0.9 (1.1-1.8); ALKALINE PHOSPHATASE 87 U/L (38-126); ALT/SGPT 28 U/L (7-56); AST/SGOT 39 U/L (17-59); BILIRUBIN,TOTAL 0.7 mg/dL (0.2-1.3); BLOOD UREA NITROGEN 25 mg/dL (7-21); CALCIUM 9.2 mg/dL (8.4-10.5); CARBON DIOXIDE 26 mmol/L (21-33); CHLORIDE 108 mmol/L (98-107); GFR AFRICAN-AMERICAN > 60; GLUCOSE,RANDOM 67 mg/dL (70-110); POTASSIUM 4.7 mmol/L (3.6-5.0); SODIUM 143 mmol/L (132-148); TOTAL PROTEIN 7.1 g/dL (5.8-8.3)
[2017-06-11 07:15] LABS: BASO # 0.02 K/mm3 (0.0-2.0); BASO % 0.4 % (0.0-3.0); EOS # 0.2 (0.0-0.7); EOS % 3.1 % (1.5-5.0); GRAN # 3.58 (1.4-6.5); GRAN % 69.7 % (50.0-68.0); HEMATOCRIT 36.3 % (42.0-52.0); LYMPH # 0.9 (1.2-3.4); LYMPH % 17.5 % (22.0-35.0); MEAN CELL VOLUME 101.1 fl (80.0-105.0); MEAN CORPUSCULAR HEMOGLOBIN 32.9 pg (25.0-35.0); MEAN CORPUSCULAR HGB CONC 32.5 g/dl (31.0-37.0); MEAN PLATELET VOLUME 10.2 fl (7.0-11.0); MONO # 0.5 (0.1-0.6); MONO % 9.3 % (1.0-6.0); RED CELL DISTRIBUTION WIDTH 13.7 % (11.5-14.5); WHITE BLOOD COUNT 5.1 10^3/ul (4.5-11.0)
[2017-06-11 10:41] VITALS: BP 149/71; PULSE 51; O2SAT 97
[2017-06-11] MEDS: Aspirin 325 mg EC Tablets PO SCH (11:29)
[2017-06-11] MEDS: Carbidopa/Levodopa 25/250 PO SCH (11:30)
[2017-06-11] MEDS: ROTIGOTINE TD SCH (11:34)
[2017-06-11] MEDS: ENTACAPONE 200 MG PO SCH (11:34)
--- NOTE | 2017-06-11 13:13 | PN ---
DATE: REASON FOR CONSULTATION AND FOLLOWUP: Coronary artery disease, history of stent in the past admitted after a fall. SUBJECTIVE: The patient denies any chest pain, shortness of breath or any palpitation. Obviously, he is not in apparent distress. PHYSICAL EXAMINATION: VITAL SIGNS: As follows; temperature afebrile, heart rate 60, and blood pressure 142/79. HEENT: PERRLA. Extraocular muscles intact. NECK: Supple. No carotid bruits or thyromegaly. CHEST: Clear to auscultation. HEART: S1 and S2 regular. ABDOMEN: Soft. EXTREMITIES: Clubbing and cyanosis negative. LABORATORY DATA: As follows; WBC 5.9, hemoglobin 11.8, hematocrit 36.3, and platelet count 191. Chemistry shows sodium 140, potassium 4.0, chloride , anion gap 14, BUN 25, and creatinine 1.1. IMPRESSION: Status post fall, history of coronary artery disease, history of multiple stents in the past, Parkinson disease, fell down because of unsteady gait, history of depression, and history of gastrointestinal bleeding. The patient had brain MRI done yesterday that shows [id number]-[id number] central volume loss. No definitive evidence of intraocular hemorrhage or infarct, possible vascular. These changes of perivascular space are consistent with vascular dementia, clinical correlation recommended. RECOMMENDATIONS: Continue amiodarone for history of wide complex tachycardia. Continue hydralazine. Continue aspirin. Continue folic acid. Continue DVT prophylaxis. Continue atorvastatin. Continue beta-ava. Continue Plavix. CVS status is stable. Continue carbidopa for Parkinson disease. Okay to be discharged from cardiology point of view. No further cardiac workup is planned at this time. Marva Alanis MD
--- NOTE | 2017-06-11 15:20 | CP.PCM.DIS ---
Provider - Provider Date of Admission: 06/08/17 12:57 Attending physician: Marva Keita MD Consults: Cardio: Abdon Neuro: Larry Time Spent in preparation of Discharge (in minutes): 45 Hospital Course - Lab Results Lab Results: Most Recent Lab Values WBC 5.1 10^3/ul (4.5-11.0) D 06/11/17 06:20 RBC 3.59 10^6/uL (3.5-6.1) 06/11/17 06:20 Hgb 11.8 g/dL (14.0-18.0) L 06/11/17 06:20 Hct 36.3 % (42.0-52.0) L 06/11/17 06:20 MCV 101.1 fl (80.0-105.0) 06/11/17 06:20 MCH 32.9 pg (25.0-35.0) 06/11/17 06:20 MCHC 32.5 g/dl (31.0-37.0) 06/11/17 06:20 RDW 13.7 % (11.5-14.5) 06/11/17 06:20 Plt Count 191 10^3/uL (120.0-450.0) 06/11/17 06:20 MPV 10.2 fl (7.0-11.0) 06/11/17 06:20 Gran % 69.7 % (50.0-68.0) H 06/11/17 06:20 Lymph % (Auto) 17.5 % (22.0-35.0) L 06/11/17 06:20 [place] % (Auto) 9.3 % (1.0-6.0) H 06/11/17 06:20 Eos % (Auto) 3.1 % (1.5-5.0) 06/11/17 06:20 Baso % (Auto) 0.4 % (0.0-3.0) 06/11/17 06:20 Gran # 3.58 (1.4-6.5) 06/11/17 06:20 Lymph # 0.9 (1.2-3.4) L 06/11/17 06:20 [place] # 0.5 (0.1-0.6) 06/11/17 06:20 Eos # 0.2 (0.0-0.7) 06/11/17 06:20 Baso # 0.02 K/mm3 (0.0-2.0) 06/11/17 06:20 PT 11.8 SECONDS (9.4-12.5) 06/06/17 22:04 INR 1.08 (0.93-1.08) 06/06/17 22:04 APTT 27.4 Seconds (25.1-36.5) 06/06/17 22:04 Sodium 143 mmol/L (132-148) 06/11/17 06:20 Potassium 4.7 mmol/L (3.6-5.0) 06/11/17 06:20 Chloride 108 mmol/L (98-107) H 06/11/17 06:20 Carbon Dioxide 26 mmol/L (21-33) 06/11/17 06:20 Anion Gap 14 (10-20) 06/11/17 06:20 BUN 25 mg/dL (7-21) H 06/11/17 06:20 Creatinine 1.1 mg/dl (0.8-1.5) 06/11/17 06:20 Est GFR ( Amer) > 60 06/11/17 06:20 Est GFR (Non-Af Amer) > 60 06/11/17 06:20 Random Glucose 67 mg/dL (70-110) L 06/11/17 06:20 Calcium 9.2 mg/dL (8.4-10.5) 06/11/17 06:20 Phosphorus 2.7 mg/dL (2.5-4.5) 06/07/17 04:00 Magnesium 2.0 mg/dL (1.7-2.2) 06/07/17 04:00 Total Bilirubin 0.7 mg/dL (0.2-1.3) 06/11/17 06:20 AST 39 U/L (17-59) 06/11/17 06:20 ALT 28 U/L (7-56) 06/11/17 06:20 Alkaline Phosphatase 87 U/L (38-126) 06/11/17 06:20 Lactate Dehydrogenase 495 U/L (333-699) 06/06/17 22:04 Total Creatine Kinase 106 U/L (35-230) 06/06/17 22:04 Troponin I 0.02 ng/mL 06/07/17 10:00 NT-Pro-B Natriuret Pep 983 pg/mL (0-450) H 06/06/17 22:04 Total Protein 7.1 g/dL (5.8-8.3) 06/11/17 06:20 Albumin 3.3 g/dL (3.0-4.8) 06/11/17 06:20 Globulin 3.8 gm/dL 06/11/17 06:20 Albumin/Globulin Ratio 0.9 (1.1-1.8) L 06/11/17 06:20 Lipase 79 U/L (23-300) 06/06/17 22:04 Urine Color Yellow (YELLOW) 06/07/17 21:58 Urine Appearance Clear (CLEAR) 06/07/17 21:58 Urine pH 7.0 (4.7-8.0) 06/07/17 21:58 Ur Specific [place] 1.020 (1.005-1.035) 06/07/17 21:58 Urine Protein Negative mg/dL (<30 mg/dL) 06/07/17 21:58 Urine Glucose (UA) Negative mg/dL (NEGATIVE) 06/07/17 21:58 Urine Ketones Trace mg/dL (NEGATIVE) H 06/07/17 21:58 Urine Blood Negative (NEGATIVE) 06/07/17 21:58 Urine Nitrate Negative (NEGATIVE) 06/07/17 21:58 Urine Bilirubin Negative (NEGATIVE) 06/07/17 21:58 Urine Urobilinogen 0.2 E.U./dL (<1 E.U./dL) 06/07/17 21:58 Ur Leukocyte Esterase Negative John/uL (NEGATIVE) 06/07/17 21:58 - Hospital Course Hospital Course: 76 yo M with PMH of HTN, CAD, [place] s/p stents (5 total since 2000, last cath 2016 without any new stent placement), CHF (LVEF 30-40%), Parkinson disease, and depression presented to the ER complaining of frequent falls, including one today with resultant head abrasion and left hand trauma. Patient reported poor baseline gait stability, but that he has been falling more frequently over the past 2-3 weeks. He also complained of urinary incontinence, mostly 2/2 urge. He also admitted to occasional confusion, and visual hallucinations, where he occasionally sees an ant crawling on him. Patient was admitted for evaluation and treatment for frequent falls and left finger fracture. CT head in ER show no CT evidence of acute intracranial abnormality; significant for bilateral nonspecific white matter changes, and stable ventriculomegaly, cannot rule out NPH. Follow up MRI showed central volume loss, dilated perivascualr spaces of both basal nuclei, consistent with vascular dementia. Neurology and cardiology were consulted, recommendations were appreciated. X-ray of the L hand showed dislocated 4th PIP, on repeat xray showed close reduction of 4th PIP and tiny avulsion fracture at base of distal 4th phalanx. Finger was splinted. Outpatient follow up with orthopedist was advised. Today, patient was seen and examined at bedside. No acute overnight events. As patient was medically stable , he was discharged to [facility] for further physical therapy and rehabilitation. It was determined that his frequent falls were likely 2/2 shuffling gait from advanced Parkinson disease. Patient's family was notified and agreed with the plan. Patient and family was notified of hospital course and imaging results. They were also advised to follow up with patient's PMD, neurologist, and orthopedist on discharge. They acknowledged and agreed. Discharge Diagnosis 1. Frequent Falls 2/2 shuffling gait 2. Parkinson Disease 3. Left 4th distal phalanx avulsion fracture 4. Urinary frequency and incontinence 5. Chronic systolic CHF 6. H/o CAD 7. HTN 8. H/o Depression Discharge Medications - Patient will resume all home medications as prescribed at [facility] Discharge Exam - Head Exam Head Exam: NORMAL INSPECTION - Eye Exam Eye Exam: Normal appearance - ENT Exam ENT Exam: Normal Exam - Neck Exam Neck exam: Normal Inspection - Respiratory Exam Respiratory Exam: Clear to PA & Lateral. absent: Accessory Muscle Use, Rales, Rhonchi, Wheezes, Respiratory Distress - Cardiovascular Exam Cardiovascular Exam: RRR, +S1, +S2. absent: Diastolic murmur, Gallop, Rubs, Systolic Murmur - GI/Abdominal Exam GI & Abdominal Exam: Soft. absent: Distended, Guarding, Rebound, Tenderness - Extremities Exam Extremities exam: normal inspection - Back Exam Back exam: NORMAL INSPECTION - Neurological Exam Neurological exam: Alert, Oriented x3 - Skin Skin Exam: Dry, Intact, Normal Color, Warm Discharge Plan - Follow Up Plan Condition: FAIR Disposition: HOME/ ROUTINE Instructions: Influenza Virus Vaccine (By injection), Pneumococcal Polyvalent Vaccine (By injection), Parkinson Disease (DC), Dementia (GEN), Chronic Hypertension (DC), Anemia (DC), Fall Prevention (DC) Additional Instructions: 1. Discharge to Sub Acute 2. Resume medications from hospital course in Sub Acute 3. Continue physical therapy in Sub Acute 4. If symptoms worsen, return to ED. Referrals: Geronimo Hernandez MD [Staff Provider] - Delonte Juarez MD [Staff Provider] - Marva Coppola MD [Staff Provider] -
== END 2017-06-11 14:36 | disposition home or self-care (01) | DRG 57 ==
LOC: ED 21:59 → ERH 06-07 02:46 → 5RNO 06-07 04:55 → OBSVTOIN 06-08 12:57 → 5RNO 06-10 17:10
PROVIDERS: ADMIT Internal Medicine; ATTEND Internal Medicine
PROC: 0PSVXZZ Reposition Left Finger Phalanx, External Approach (ICD-10-PCS; principal; 2017-06-06)
DX: G20 Parkinson's disease (principal); I50.22 Chronic systolic (congestive) heart failure; I11.0 Hypertensive heart disease with heart failure; F01.50 Vascular dementia, unspecified severity, without behavioral disturbance, psychotic disturbance, mood disturbance, and anxiety; I25.10 Atherosclerotic heart disease of native coronary artery without angina pectoris; S62.638A Displaced fracture of distal phalanx of other finger, initial encounter for closed fracture; R29.6 Repeated falls; F32.9 Major depressive disorder, single episode, unspecified; E78.5 Hyperlipidemia, unspecified; R35.0 Frequency of micturition; W19.XXXA Unspecified fall, initial encounter; Y92.019 Unspecified place in single-family (private) house as the place of occurrence of the external cause; Z95.5 Presence of coronary angioplasty implant and graft; I25.2 Old myocardial infarction; Z87.891 Personal history of nicotine dependence; Z79.82 Long term (current) use of aspirin; Z86.79 Personal history of other diseases of the circulatory system